=== PATIENT | female | born 1935 | race Caucasian/White ===

== ENCOUNTER 2016-07-02 03:37 | Emergency (ER) | payer MEDICARE, OTHER ==
[2016-07-02] MEDS ORDERED: FUROSEMIDE 40 MG/4 ML VIAL ONE (03:51)
[2016-07-02] MEDS: FUROSEMIDE 40 MG/4 ML VIAL IVP ONE (03:55)
--- NOTE | 2016-07-02 04:04 | ED Physician Documentation ---
General Adult - HISTORIAN Historian: patient - HPI Stated Complaint: SOB Chief Complaint: General Adult Additional Information: Awakened at 0130 by SOB. This has happened before, but alwas lasts a few minutes and she goes back to sleep. 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 Denies pain, fever, sweats. Timing: better - ROS CONST: no problems. denies: recent illness - PAST HX Past History: COPD, A-Fib, CHF, hypertension Surgeries/Procedures: cholecystectomy, hysterectomy Allergies/Adverse Reactions: Allergies Allergy/AdvReac Type Severity Reaction Status Date / Time No Known Allergies Allergy Verified 07/02/16 04:01 Home Medications: Ambulatory Orders Medication Instructions Recorded Aspirin [Kate] 81 mg PO DAILY 08/27/14 Digoxin [Lanoxin] 12.5 mg PO DAILY 08/27/14 Diltiazem HCl [Tiazac] 240 mg PO DAILY 08/27/14 Furosemide 40 mg PO DAILY 08/27/14 Quinapril HCl 20 mg PO DAILY 08/27/14 Apixaban [Eliquis] 10 mg PO D 07/02/16 Calcium Citrate/Vitamin D3 1 tab PO D 07/02/16 [Calcium Citrate +Vit D3 Tablet] Loratadine [Claritin] 10 mg PO D 07/02/16 - SOCIAL HX Smoking History: quit greater than 1 year (< 1 PPD for 40 years), cigarettes - FAMILY HX Family History: No (no signif) - VITAL SIGNS Vital Signs: Vital Signs Temp Pulse Resp BP Pulse Ox 110/62 01/17/16 09:12 - REVIEWED ASSESSMENTS Nursing Assessment Reviewed: Yes Vitals Reviewed: Yes Progress - Progress Progress: EKG: a fib, 80 BPM, no acute changes TECHNIQUE: Single portable AP view of the chest was performed. FINDINGS: The lungs are hyperexpanded. There is central pulmonary vascular prominence. No pneumothorax or consolidative infiltrates. The aortic arch is calcific. The heart is enlarged. Probable calcified lymph nodes in the left hilum. IMPRESSION: 1. Central pulmonary vascular prominence may be due to mild CHF or pulmonary arterial hypertension. 2. Cardiomegaly. 3. Pulmonary hyperexpansion without consolidative infiltrates. Electronically signed on Jul 02, 2016 4:15:29 AM CDT by: Asaf Rea Urine ouput 1050 ml. Breathing much easier. ED Results Lab/Radiology - Orders Orders: ED Orders Category Date Time Status Assess pulse oximetry Q1H Care 07/02/16 03:41 Active Continuous EKG monitoring Q1H Care 07/02/16 03:[address] Saline Lock/IV Now Care 07/02/16 03:41 Active CHEST 1 VIEW [RAD] Stat Exams 07/02/16 Ordered CBC/PLATELET/DIFF Routine Lab 07/02/16 03:45 Received CMP Routine Lab 07/02/16 03:45 Received TROPONIN I (cTnI) Stat Lab 07/02/16 03:45 Received URINALYSIS Routine Lab 07/02/16 Ordered Furosemide [Lasix] Med 07/02/16 03:51 Discontinued 40 mg .ROUTE .STK-MED ONE Furosemide [Lasix] Med 07/02/16 03:50 Discontinued 40 mg IVP NOW ONE EKG WITH COMPARISON Stat Ther 07/02/16 Ordered General Adult Physical Exam - PHYSICAL EXAM GENERAL APPEARANCE: no distress EENT: eye inspection normal, ENT inspection normal, pharynx normal NECK: normal inspection, supple RESPIRATORY: breath sounds normal, rales (fine rales jamila lower lobes), other ( tachypnea in 20's) CVS: heart sounds normal, irregularly irregular rhy ABDOMEN: normal bowel sounds RECTAL: deferred BACK: normal inspection, no CVA tenderness, other (no vertebral tenderness) SKIN: warm/dry, normal color EXTREMITIES: no edema NEURO: CN's nml as tested, motor nml, sensation nml, cognition normal Discharge Clincal Impression: Shortness of breath Referrals: Regis Retana MD [Primary Care Provider] - 2 Days Additional Instructions: Take your medications as prescribed. Home Medications: Ambulatory Orders Aspirin [Kate] 81 mg PO DAILY 08/27/14 Digoxin [Lanoxin] 12.5 mg PO DAILY 08/27/14 Diltiazem HCl [Tiazac] 240 mg PO DAILY 08/27/14 Furosemide 40 mg PO DAILY 08/27/14 Quinapril HCl 20 mg PO DAILY 08/27/14 Apixaban [Eliquis] 10 mg PO D 07/02/16 Calcium Citrate/Vitamin D3 [Calcium Citrate +Vit D3 Tablet] 1 tab PO D 07/02/16 Loratadine [Claritin] 10 mg PO D 07/02/16 Condition: Good Disposition: 01 HOME, SELF-CARE Decision to Admit: NO Decision Time: 05:20
[2016-07-02 04:05] LABS: BASOPHILS % 0.7 (0.0-1.5); EOSINOPHILS % 4.9 % (0.0-6.8); LYMPHOCYTES # 1.8 # k/uL (0.6-4.0); MEAN CORPUSCULAR HEMOGLOBIN 29.2 pg (28.0-34.0); MONOCYTES # 0.4 # k/uL (0.0-0.9); NEUTROPHILS # 5.2 # k/uL (1.4-7.7)
--- NOTE | 2016-07-02 04:16 | Diagnostic Imaging Report ---
MILLY ARGUELLES - SANDRA [facility] [address] [facility] [address] [place] [address]. [id number] Report Submission Date: Jul 02, 2016 4:15:29 AM CDT Patient Study Name: MIRANDA HENDRICKSON Date: Jul 02, 2016 3:56:51 AM CDT Modality Type: CR Gender: F Description: CHEST : 36 Institution: [facility] Physician: MILLY ARGUELLES - SANDRA HISTORY: 80-year-old female with shortness of breath. COMPARISON: None available TECHNIQUE: Single portable AP view of the chest was performed. FINDINGS: The lungs are hyperexpanded. There is central pulmonary vascular prominence. No pneumothorax or consolidative infiltrates. The aortic arch is calcific. The heart is enlarged. Probable calcified lymph nodes in the left hilum. IMPRESSION: 1. Central pulmonary vascular prominence may be due to mild CHF or pulmonary arterial hypertension. 2. Cardiomegaly. 3. Pulmonary hyperexpansion without consolidative infiltrates. Electronically signed on Jul 02, 2016 4:15:29 AM CDT by: Asaf MCKENNA
[2016-07-02 04:21] LABS: eGFR (African) > 60; eGFR (Non-African) > 60
[2016-07-02 05:29] LABS: APPEARANCE,URINE CLEAR (CLEAR); COLOR,URINE YELLOW (YELLOW); OCCULT BLOOD,URINE NEGATIVE (NEGATIVE); UROBILINOGEN URINE 0.2 Eu (0.2-1.0)
[2016-07-02 06:38] VITALS: BP 128/97
== END 2016-07-02 05:28 ==
LOC: ED 03:37
DX: R06.02 Shortness of breath (principal)
CPT/HCPCS: 71010; 80053; 81002; 84484; 85025; 93005; J1940; 96374; 99283; 99284; S1016

== ENCOUNTER 2016-07-19 08:00 | Emergency (ER) | payer MEDICARE, OTHER ==
[2016-07-19 08:27] LABS: BASOPHILS % 0.3 (0.0-1.5); EOSINOPHILS % 3.7 % (0.0-6.8); MEAN CORPUSCULAR HEMOGLOBIN 28.3 pg (28.0-34.0); MEAN CORPUSCULAR VOLUME 89.5 fl (80.0-100.0); MONOCYTES % 5.1 % (0.0-11.0); NEUTROPHILS # 4.7 # k/uL (1.4-7.7)
[2016-07-19 08:40] LABS: eGFR (African) > 60; eGFR (Non-African) > 60
--- NOTE | 2016-07-19 08:57 | ED Physician Documentation ---
Dyspnea - HISTORIAN Historian: patient - HPI Stated Complaint: Shortness of Breath Chief Complaint: Dyspnea Onset: other (yesterday) Duration: continues in ED Initiating Event: upper respiratory illness Severity: moderate Exacerbated By: exertion, laying flat Associated Symptoms: productive cough. denies: chills, fever Further Comments: yes (80 year old female patient presents with complaints of dyspnea. Patient states the dyspnea is worse with laying flat and exerction. Patient denies any CP, denies SOB or chest pain. States she has had mild edema in her ankles. Patient reports chronic A Fib) - ROS CONST: no problems EYES/ENT: nasal drainage, nasal congestion GI/: none NEURO/PSYCH: denies: headache MS/SKIN/LYMPH: none - PAST HX Lung Disease: COPD Cardiac Disease: A-Fib, other (HLD) PE Risk Factors: hypertension Other History: diabetes Type 2 Allergies/Adverse Reactions: Allergies Allergy/AdvReac Type Severity Reaction Status Date / Time No Known Allergies Allergy Verified 07/19/16 08:59 Home Medications: Ambulatory Orders Medication Instructions Recorded Aspirin [Kate] 81 mg PO DAILY 08/27/14 Digoxin [Lanoxin] 12.5 mg PO DAILY 08/27/14 Diltiazem HCl [Tiazac] 240 mg PO DAILY 08/27/14 Furosemide 40 mg PO DAILY 08/27/14 Quinapril HCl 20 mg PO DAILY 08/27/14 Apixaban [Eliquis] 10 mg PO D 07/02/16 Calcium Citrate/Vitamin D3 1 tab PO D 07/02/16 [Calcium Citrate +Vit D3 Tablet] Loratadine [Claritin] 10 mg PO D 07/02/16 - SOCIAL HX Smoking History: non-smoker - FAMILY HX Family History: cardiac disease - VITAL SIGNS Vital Signs: Vital Signs Temp Pulse Resp BP Pulse Ox 98.2 F 88 22 149/113 98 07/19/16 08:00 07/19/16 08:48 07/19/16 08:00 07/19/16 08:00 07/19/16 08:48 - REVIEWED ASSESSMENTS Nursing Assessment Reviewed: Yes Vitals Reviewed: Yes Progress - Progress Progress: RA Sat 86% on arrival, patient place on 2L NC. Oxygen at 4L to maintain sat 97-98%. Reviewed radiology chest xray report. Discussed plan of care with patient. Will likely need CT chest, will not diuresis at this time due to possible pulmonary hypertension. Patient stable at current status. Patient requests transfer to Dr Ortega. Call to [facility]. [phone] Falcon hospitalist. - EKG/XRAY/CT EKG: rhythm (A fib, rate88) ED Results Lab/Radiology - Lab Results Lab Results: Lab Results 07/19/16 08:25 WBC 6.90 K/ul K/ul (4.00-12.00) RBC 4.70 M/ul M/ul (3.90-5.20) Hgb 13.3 g/dL g/dL (12.0-16.0) Hct 42.0 % % (34.5-46.5) MCV 89.5 fl fl (80.0-100.0) MCH 28.3 pg pg (28.0-34.0) MCHC 31.6 g/dL g/dL (30.0-36.0) RDW 13.6 % % (11.3-14.3) Plt Count 208 K/mm3 K/mm3 (130-400) Neut % (Auto) 68.0 % % (39.0-79.0) Lymph % (Auto) 21.5 % % (16.0-50.0) [place] % (Auto) 5.1 % % (0.0-11.0) Eos % (Auto) 3.7 % % (0.0-6.8) Baso % (Auto) 0.3 (0.0-1.5) Neut # 4.7 # k/uL # k/uL (1.4-7.7) Lymph # 1.5 # k/uL # k/uL (0.6-4.0) [place] # 0.4 # k/uL # k/uL (0.0-0.9) Eos # 0.3 # k/uL # k/uL (0.0-0.6) Baso # 0.0 # k/uL # k/uL (0.0-0.5) Reactive Lymphs % 1.3 % % (0.0-5.0) Reactive Lymphs # 0.1 # k/uL # k/uL (0.0-0.8) - Radiology Radiology Impressions: A single frontal view of the chest History: Dyspnea Findings: Comparison: July 02, 2016 Cardiomegaly with aortic calcification are present Emphysema Pulmonary vascular congestion is again noted. Pulmonary hilar prominence is present Possible left calcified hilar lymphadenopathy. Left pleural thickening may be present There is bilateral mid lung atelectasis, no acute osseous pathology Impression: Cardiomegaly with pulmonary vascular congestion Emphysema Possible pulmonary arterial hypertension Bilateral mid lung subsegmental atelectasis Electronically signed on Jul 19, 2016 8:49:28 AM CDT by: Ida Go - Orders Orders: ED Orders Category Date Time Status Arterial Blood Gas 1T Care 07/19/16 08:05 Active Continuous EKG monitoring Q30M Care 07/19/16 08:18 Active Continuous Pulse Oximetry Q30M Care 07/19/16 08:[address] Saline Lock/IV NOW Care 07/19/16 08:18 Completed CHEST 1 VIEW [RAD] Stat Exams 07/19/16 08:18 Ordered BNP [NT-proBNP] Stat Lab 07/19/16 08:25 Received CBC/PLATELET/DIFF Stat Lab 07/19/16 08:25 Completed CMP Stat Lab 07/19/16 08:25 Received TROPONIN I (cTnI) Stat Lab 07/19/16 08:25 Received Oxygen Daily Oxygen 07/19/16 08:30 Ordered EKG WITH COMPARISON Stat Ther 07/19/16 08:18 Ordered Dyspnea Physical Exam - EXAM General Appearance: mild distress EENT: eye inspection normal, ENT inspection normal, pharynx normal, no signs of dehydration, JOSE, no nystagmus, TM's nml Respiratory: no resp. distress, no pain on inspiration, speaks full sentences, decreased air movement (bases) CVS: no murmur, no gallop, no friction rub, pulses full, pulses equal, irregularly irreg. 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: oriented x3, CN's nml as tested, motor nml, sensation nml, mood/ affect nml Discharge Clincal Impression: COPD (chronic obstructive pulmonary disease), Paroxysmal atrial fibrillation, Hypoxemia requiring supplemental oxygen, Shortness of breath Home Medications: Ambulatory Orders Aspirin [Kate] 81 mg PO DAILY 08/27/14 Digoxin [Lanoxin] 12.5 mg PO DAILY 08/27/14 Diltiazem HCl [Tiazac] 240 mg PO DAILY 08/27/14 Furosemide 40 mg PO DAILY 08/27/14 Quinapril HCl 20 mg PO DAILY 08/27/14 Apixaban [Eliquis] 10 mg PO D 07/02/16 Calcium Citrate/Vitamin D3 [Calcium Citrate +Vit D3 Tablet] 1 tab PO D 07/02/16 Loratadine [Claritin] 10 mg PO D 07/02/16 Condition: Stable Disposition: 02 XFER SHT-TRM HOSP Decision to Admit: NO Decision Time: 10:14
[2016-07-19 10:59] VITALS: BP 165/98
--- NOTE | 2016-07-19 11:07 | Diagnostic Imaging Report ---
UMAIR REN (MARQUEZ) - ER [facility] [address] [facility].[address] [address] Report Submission Date: Jul 19, 2016 8:49:28 AM CDT Patient Study Name: MIRANDA HENDRICKSON Date: Jul 19, 2016 8:31:47 AM CDT Modality Type: CR Gender: F Description: CHEST : 36 Institution: [facility] Physician: UMAIR REN (MARQUEZ) - ER A single frontal view of the chest History: Dyspnea Findings: Comparison: July 02, 2016 Cardiomegaly with aortic calcification are present Emphysema Pulmonary vascular congestion is again noted. Pulmonary hilar prominence is present Possible left calcified hilar lymphadenopathy. Left pleural thickening may be present There is bilateral mid lung atelectasis, no acute osseous pathology Impression: Cardiomegaly with pulmonary vascular congestion Emphysema Possible pulmonary arterial hypertension Bilateral mid lung subsegmental atelectasis Electronically signed on Jul 19, 2016 8:49:28 AM CDT by: Ida MCKENNA
[2016-07-20 07:41] LABS: ABG BASE EXCESS 4.8 (-2 - +2); ABG PH 7.41 (7.35-7.45)
== END 2016-07-19 10:45 | disposition short-term general hospital (02) ==
LOC: ED 08:00
DX: J44.9 Chronic obstructive pulmonary disease, unspecified (principal); Z99.81 Dependence on supplemental oxygen
CPT/HCPCS: 36600; 71010; 80053; 82803; 83880; 84484; 85025; 99283; S1016

== ENCOUNTER 2016-10-18 15:20 | Inpatient (IN) | payer MEDICARE, OTHER ==
[2016-10-18] MEDS ORDERED: IPRATROPIUM/ALBUTEROL SULFATE 3 ML AMPUL.NEB NEB ONE (15:37)
[2016-10-18 15:52] LABS: BASOPHILS % 0.9 (0.0-1.5); EOSINOPHILS % 1.9 % (0.0-6.8); MEAN CORPUSCULAR HEMOGLOBIN 27.4 pg (28.0-34.0); MEAN CORPUSCULAR VOLUME 85.3 fl (80.0-100.0); MONOCYTES % 4.1 % (0.0-11.0); NEUTROPHILS # 9.3 # k/uL (1.4-7.7)
[2016-10-18 16:08] LABS: eGFR (African) > 60; eGFR (Non-African) > 60
--- NOTE | 2016-10-18 16:32 | ED Physician Documentation ---
Dyspnea - HISTORIAN Historian: patient - HPI Chief Complaint: Dyspnea Additional Information: poor historian. Difficulty breathing x 3 days. worse with activity. NO PAIN. supposed to use oxygen at home, thinks she uses it at night but not every night. Onset: days ago Duration: continues in ED Initiating Event: exercise. denies: upper respiratory illness, out of meds Severity: mild Exacerbated By: exertion, laying flat Associated Symptoms: none. denies: sweating, chest pain, productive cough Further Comments: no - ROS CONST: denies: recent illness EYES/ENT: none. denies: nasal drainage, nasal congestion GI/: none. denies: vomiting, nausea NEURO/PSYCH: denies: headache MS/SKIN/LYMPH: none - PAST HX Lung Disease: COPD, pneumonia Cardiac Disease: CHF, A-Fib PE Risk Factors: hypertension Surgeries/Procedures: none Other History: diabetes Type 1 Allergies/Adverse Reactions: Allergies Allergy/AdvReac Type Severity Reaction Status Date / Time No Known Allergies Allergy Verified 10/18/16 15:51 Home Medications: Ambulatory Orders Medication Instructions Recorded Aspirin [Kate] 81 mg PO DAILY 08/27/14 Digoxin [Lanoxin] 12.5 mg PO DAILY 08/27/14 Diltiazem HCl [Tiazac] 240 mg PO DAILY 08/27/14 Furosemide 40 mg PO DAILY 08/27/14 Quinapril HCl 20 mg PO DAILY 08/27/14 Apixaban [Eliquis] 10 mg PO BID 07/02/16 Calcium Citrate/Vitamin D3 1 tab PO D 07/02/16 [Calcium Citrate +Vit D3 Tablet] Loratadine [Claritin] 10 mg PO D 07/02/16 Potassium Chloride [Klor-Con M10] 10 meq PO BID 10/18/16 - SOCIAL HX Smoking History: quit greater than 1 year, cigarettes Alcohol Use: occasionally Drug Use: none - FAMILY HX Family History: none - VITAL SIGNS Vital Signs: Vital Signs Temp Pulse Resp BP Pulse Ox 165/98 07/19/16 10:45 - REVIEWED ASSESSMENTS Nursing Assessment Reviewed: Yes Vitals Reviewed: Yes Progress - Results/Orders Results/Orders: Spoke with Dr Retana, he agrees to admit her. ED Results Lab/Radiology - Orders Orders: ED Orders Category Date Time Status CHEST P.A.&LAT 2 VIEWS [RAD] Stat Exams 10/18/16 Ordered BNP [NT-proBNP] Stat Lab 10/18/16 Ordered CBC/PLATELET/DIFF Routine Lab 10/18/16 Ordered CMP Routine Lab 10/18/16 Ordered CREATINE KINASE Routine Lab 10/18/16 Ordered D DIMER Stat Lab 10/18/16 Ordered PT-INR Routine Lab 10/18/16 Ordered Ipratropium/Albuterol Sulfate [Duoneb] Med 10/18/16 15:37 Once 3 ml NEB NOW ONE EKG WITH COMPARISON Stat Ther 10/18/16 Ordered Dyspnea Physical Exam - EXAM General Appearance: alert, mild distress EENT: ENT inspection normal, no signs of dehydration Neck: nml inspection. No: lymphadenopathy Respiratory: no resp. distress, breath sounds nml, no pain on inspiration, speaks full sentences. No: respiratory distress, respiratory failure, prolonged expirations, wheezes, rales, rhonchi CVS: irregularly irreg. rhythm. No: tachycardia, murmur Abdomen: non-tender Skin: color nml, no rash. No: diaphoresis Extremities: non-tender, no edema Neuro/Psych: oriented x3 Discharge Clincal Impression: CHF (congestive heart failure) Qualifiers: Congestive heart failure type: unspecified congestive heart failure type Congestive heart failure chronicity: acute on chronic Qualified Code(s): I50.9 - Heart failure, unspecified Pneumonia Qualifiers: Pneumonia type: due to unspecified organism Laterality: right Lung location: lower lobe of lung Qualified Code(s): J18.1 - Lobar pneumonia, unspecified organism COPD (chronic obstructive pulmonary disease) Qualifiers: COPD type: COPD with acute exacerbation Qualified Code(s): J44.1 - Chronic obstructive pulmonary disease with (acute) exacerbation A-fib Qualifiers: Atrial fibrillation type: chronic Qualified Code(s): I48.2 - Chronic atrial fibrillation Referrals: Regis Retana MD [Primary Care Provider] - 2 Days Home Medications: Ambulatory Orders Aspirin [Kate] 81 mg PO DAILY 08/27/14 Digoxin [Lanoxin] 12.5 mg PO DAILY 08/27/14 Diltiazem HCl [Tiazac] 240 mg PO DAILY 08/27/14 Furosemide 40 mg PO DAILY 08/27/14 Quinapril HCl 20 mg PO DAILY 08/27/14 Apixaban [Eliquis] 10 mg PO BID 07/02/16 Calcium Citrate/Vitamin D3 [Calcium Citrate +Vit D3 Tablet] 1 tab PO D 07/02/16 Loratadine [Claritin] 10 mg PO D 07/02/16 Potassium Chloride [Klor-Con M10] 10 meq PO BID 10/18/16 Condition: Stable Disposition: ADMITTED INPATIENT Decision to Admit: [id number] Date of Decison to Admit: 10/18/16 Decision Time: 16:31
[2016-10-18] MEDS ORDERED: 0.9 % SODIUM CHLORIDE 100 ML IV ONE (16:49)
[2016-10-18] MEDS ORDERED: cefTRIAXone SODIUM 1 GM VIAL ONE (16:49)
[2016-10-18] MEDS ORDERED: ENOXAPARIN SODIUM 30 MG/0.3 ML DISP.SYRIN SQ SCH (18:00)
[2016-10-18] MEDS: cefTRIAXone SODIUM 1 GM in 0.9 % SODIUM CHLORIDE 50 ML IV SCH (18:17)
[2016-10-18 18:20] VITALS: BMI 25.5
[2016-10-18] MEDS ORDERED: POTASSIUM CHLORIDE 10 MEQ TABLET.ER PO ONE (18:35)
--- NOTE | 2016-10-18 19:21 | Diagnostic Imaging Report ---
MENDY ALARCON [facility] [address] [facility] [address] [address] Report Submission Date: Oct 18, 2016 4:03:45 PM CDT Patient Study Name: MIRANDA HENDRICKSON Date: Oct 18, 2016 3:41:04 PM CDT Modality Type: CR Gender: F Description: CHEST : 37 Institution: [facility] Physician: MENDY ALARCON Examination: Portable chest History: Chest discomfort Comparison exam: 19 July 2016 Findings: Single view of the chest demonstrates enlarged cardiac silhouette. Continued prominence of the parenchyma interstitium. Prominent right hilum. Vague infiltrate right lower lung. Parenchymal fullness at the left lung base: Stable to prior study. Osseous structures are appropriate for age. Impression: Cardiomegaly and chronic interstitial changes. New infiltrate right lower lung. No effusion. Continue prominence of the naveen - may represent pulmonary arterial hypertension. Electronically signed on Oct 18, 2016 4:03:45 PM CDT by: Eliel MCKENNA
[2016-10-18] MEDS: FUROSEMIDE 40 MG TABLET PO SCH (20:04)
[2016-10-18] MEDS: APIXABAN 2.5 MG TABLET PO SCH (20:05)
[2016-10-18] MEDS ORDERED: AZITHROMYCIN 500 MG VIAL IV ONE (20:09)
[2016-10-18] MEDS ORDERED: 0.9 % SODIUM CHLORIDE 250 ML IV ONE (20:10)
[2016-10-18] MEDS: AZITHROMYCIN 500 MG in 0.9 % SODIUM CHLORIDE 250 ML IV SCH (20:26)
[2016-10-18] MEDS ORDERED: POTASSIUM CHLORIDE 10 MEQ PO SCH (21:00)
[2016-10-18] MEDS: IPRATROPIUM/ALBUTEROL SULFATE 3 ML AMPUL.NEB NEB SCH (21:07)
--- NOTE | 2016-10-18 21:11 | History and Physical Report ---
History of Present Illnes - History of Present Illness Reason for Visit: Dyspnea History of Present Illness: Patient is a 80-year-old white female who over the last two days has developed some increasing shortness of breath and dyspnea. Patient was having some palpitations and some mild low-grade fever. Patient did develop a cough that was nonproductive. Patient subsequently went to the ED for evaluation and treatment. Patient does have a history of chronic a to a fib COPD. In the emergency room patient was noted to have a new left lower lobe infiltrate mildly elevated WBC. Patient was also noted to have a elevated Pro BNP. Patient was subsequently admitted to the hospital for further care and evaluation. 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 negative: Weakness, Malaise Eyes: negative: pain, vision change, conjunctivae inflammation ENT: negative: Ear Pain, Ear Discharge, Nose Pain, Nose Discharge, Nose Congestion, Throat Swelling Respiratory: Cough, Dry, Shortness of Breath, SOB with Excertion, Wheezing. negative: Hemoptysis, Pleuritic Pain, Sputum Cardiovascular: negative: Chest Pain, Palpitations, Orthopnea Gastrointestinal: negative: Nausea, Vomiting, Abdominal Pain, Diarrhea, Constipation, Melena, Hematochezia Genitourinary: negative: Dysuria, Frequency, Incontinence, Hematuria Musculoskeletal: Back Pain Skin: negative: Rash, Lesions Neurological: negative: Weakness, Numbness, Incoordination, Change in Speech, Confusion, Seizures - Medications/Allergies Allergies/Adverse Reactions: Allergies Allergy/AdvReac Type Severity Reaction Status Date / Time No Known Allergies Allergy Verified 10/18/16 15:51 Home Medications: Home Medications Potassium Chloride [Klor-Con M10] 10 meq PO BID 10/18/16 Current Inpatient Medications: Current Inpatient Medications Albuterol/Ipratropium (Duoneb) 3 ml NEB Q4 [facility] Calcium/Vitamin D (Caltrate With Vit D-3) 1 each PO DAILY [facility] Digoxin (Lanoxin) 12,500 mcg PO DAILY [facility] Diltiazem HCl (Cardizem Cd) 240 mg PO DAILY [facility] Furosemide (Lasix) 40 mg PO BID [facility] Last Admin: 10/18/16 20:04 Dose: 40 mg Azithromycin 500 mg/ Sodium (Chloride) 250 mls @ 125 mls/hr IV Q24H [facility] Stop: 10/28/16 17:36 Last Admin: 10/18/16 20:26 Dose: 125 mls/hr Ceftriaxone Sodium 1 gm/ (Sodium Chloride) 50 mls @ 100 mls/hr IV QD [facility] Last Admin: 10/18/16 18:17 Dose: 100 mls/hr Loratadine (Claritin) 10 mg PO D [facility] Metformin HCl (Glucophage) 500 mg PO BID [facility] Last Admin: 10/18/16 20:04 Dose: 500 mg Miscellaneous (Potassium Chloride [Klor-Con M10]) 10 meq PO BID [facility] Last Admin: 10/18/16 20:05 Dose: 10 meq Miscellaneous (Chem Sticks) 1 each MC CHEMX2 [facility] Quinapril HCl (Accupril) 20 mg PO DAILY [facility] Sodium Chloride (Normal Saline Flush) 3 ml IV BID [facility] Exam - Exam Vital Signs: Vital Signs (72 hours) 10/18/16 10/18/16 10/18/16 17:09 17:37 18:00 Temperature 97.3 F L Pulse Rate 120 H Pulse Rate [ 107 H Right] Respiratory 18 Rate Blood Pressure 128/65 [Right Arm] O2 Sat by Pulse 94 94 94 Oximetry 10/18/16 19:49 Temperature 97.1 F L Pulse Rate Pulse Rate [ 97 H Right] Respiratory 20 Rate Blood Pressure 105/58 [Right Arm] O2 Sat by Pulse 96 Oximetry General: Alert, Oriented to Person, Oriented to Place, Oriented to Time, Cooperative, No acute distress HEENT: Atraumatic, PERRLA. No: Pharyngeal Erythema Neck: Normal Range of Motion. No: Stridor, Rigidity, Lymphadenopathy Carotids: WNL Thyroid: WNL Lungs: Speaks full Sentences, Wheezes (L>R), Rales Cardiovascular: Normal S2, No murmurs, Irregularly Irregular Abdomen: Normal bowel sounds, Soft, No tenderness, No hepatospenomegaly, No masses Integumentary: Normal, [place], Warm, Dry Extremities: No clubbing, No cyanosis, No edema, Normal pulses, No tenderness/ swelling Neurological: Normal gait, Normal speech, Strength Equal Bilat, Sensation intact , Cranial nerves 3-12 NL, Reflexes 2+ Psych/Mental Status: Mental status NL, Mood NL, Appropriate Affect, Intact Judgment Assessment/Plan - Assessment/Plan (1) Pneumonia Status: Acute Current Visit: Yes Qualifiers: Pneumonia type: due to unspecified organism Laterality: right Lung location: lower lobe of lung Qualified Code(s): J18.1 - Lobar pneumonia, unspecified organism (2) A-fib Status: Chronic Current Visit: Yes Qualifiers: Atrial fibrillation type: chronic Qualified Code(s): I48.2 - Chronic atrial fibrillation Assessment: continue anticoagulation (3) Acute exacerbation of chronic obstructive airways disease Status: Acute Current Visit: No (4) Essential hypertension Status: Acute Current Visit: No Assessment: Duoneb, antibiotics, will hold off on steroids at this time. (5) Chronic anticoagulation Status: Chronic Current Visit: No VTE Assessment - RISK FACTOR SCORE VTE RISK FACTOR SCORES: AGE OVER 60 YEARS, ACUTE INFECTION OTHER THEN SEPSIS - RISK VTE MODERATE RISK: SCORE OF 2 (RISK PROXIMAL DVT 2-4%) PROPHYAXIS NEEDED (on chronic anticoagulation therapy.)
[2016-10-19] MEDS: SALINE FLUSH 10 ML DISP.SYRIN IV SCH ×3 (02:34→22:42)
[2016-10-19] MEDS: IPRATROPIUM/ALBUTEROL SULFATE 3 ML AMPUL.NEB NEB SCH ×6 (02:52→20:47)
[2016-10-19] MEDS ORDERED: POTASSIUM CHLORIDE 10 MEQ TABLET.ER PO ONE (03:13)
[2016-10-19 06:31] LABS: BASOPHILS % 0.6 (0.0-1.5); EOSINOPHILS % 1.2 % (0.0-6.8); MEAN CORPUSCULAR HEMOGLOBIN 27.8 pg (28.0-34.0); MEAN CORPUSCULAR VOLUME 84.8 fl (80.0-100.0); NEUTROPHILS # 7.4 # k/uL (1.4-7.7)
[2016-10-19 06:34] LABS: eGFR (African) > 60; eGFR (Non-African) > 60
[2016-10-19] MEDS: CALCIUM CARB 600MG/VIT D-3 400 1 EACH TABLET PO SCH (10:03)
[2016-10-19] MEDS: DILTIAZEM HCL 120 MG CAP.ER.24H PO SCH (10:03)
[2016-10-19] MEDS: POTASSIUM CHLORIDE 10 MEQ TABLET.ER PO SCH ×2 (10:03→20:16)
[2016-10-19] MEDS: QUINAPRIL HCL 20 MG TABLET PO SCH (10:03)
[2016-10-19] MEDS: DIGOXIN 125 MCG TABLET PO SCH (10:04)
[2016-10-19] MEDS: FUROSEMIDE 40 MG TABLET PO SCH (10:04)
[2016-10-19] MEDS: LORATADINE 10 MG TABLET PO SCH (10:04)
[2016-10-19] MEDS: APIXABAN 2.5 MG TABLET PO SCH ×2 (10:04→20:17)
[2016-10-19] MEDS: cefTRIAXone SODIUM 1 GM in 0.9 % SODIUM CHLORIDE 50 ML IV SCH (17:38)
[2016-10-19] MEDS ORDERED: methylPREDNISolone SOD SUCC 125 MG/2 ML VIAL IVP ONE (18:48)
--- NOTE | 2016-10-19 19:20 | Diagnostic Imaging Report ---
[facility]MED SURG [facility] [address] [facility] [address] [place] [address]. [address] Report Submission Date: Oct 19, 2016 4:20:33 PM CDT Patient Study Name: MIRANDA HENDRICKSON Date: Oct 19, 2016 3:14:50 PM CDT Modality Type: CT\SR Gender: F Description: CT ANGIOGRAPHY CHEST 7 : 36 Institution: [facility] Physician: [facility]/MED SURG Examination: CT chest pulmonary embolism History: Chest discomfort. Elevated d-dimer Comparison exam: Plain film chest dated 18 October 2016 Technique: CT chest pulmonic pulmonary embolism protocol. Findings: No evidence for luminal filling defect within the main pulmonary arteries to the 3rd order branch vessels bilaterally. Thoracic aorta without aneurysmal dilation. No evidence for dissection flap. Mild peripheral atherosclerotic disease. Lungs demonstrate dependent atelectasis bilaterally. Biapical and posterior parenchymal scarring. Regions of more focal consolidation involving the left lung lingula and superior/anterior/lateral margin of the right midlung. No evidence for posterior pleural effusion or thickening. No mediastinal or naveen mass or pathologic adenopathy. Cardiac silhouette enlarged. No pericardial fluid. Osseous structures demonstrate mild degenerative changes. Lower neck structures and axilla regions are without gross irregularity. Air within the hepatobiliary tree. Surgical clips gallbladder fossa. Impression: No evidence for pulmonary embolism by CT criteria. No evidence for thoracic aortic dissection or abnormality. Bilateral patchy parenchymal infiltrates/inflammatory nodules. Follow as clinically warranted. Air within the hepatic biliary tree: uncertain etiology. Correlate with any pertinent history and prior surgical procedures. Prior cholecystectomy Electronically signed on Oct 19, 2016 4:20:33 PM CDT by: Eliel Arnold [facility]ERRos[facility]
[2016-10-19] MEDS: AZITHROMYCIN 500 MG in 0.9 % SODIUM CHLORIDE 250 ML IV SCH (20:34)
[2016-10-19] MEDS: INSULIN REGULAR, HUMAN 100 UNIT/ML 3ML VIAL SQ SCH (20:43)
[2016-10-20] MEDS: IPRATROPIUM/ALBUTEROL SULFATE 3 ML AMPUL.NEB NEB SCH ×4 (04:30→12:38)
[2016-10-20] MEDS: INSULIN REGULAR, HUMAN 100 UNIT/ML 3ML VIAL SQ SCH ×2 (07:43→11:36)
[2016-10-20] MEDS: methylPREDNISolone SOD SUCC 40 MG/ML VIAL IVP SCH ×2 (08:05→08:06)
[2016-10-20] MEDS: QUINAPRIL HCL 20 MG TABLET PO SCH (08:29)
[2016-10-20] MEDS: DILTIAZEM HCL 120 MG CAP.ER.24H PO SCH (08:29)
[2016-10-20] MEDS: APIXABAN 2.5 MG TABLET PO SCH (08:29)
[2016-10-20] MEDS: LORATADINE 10 MG TABLET PO SCH (08:29)
[2016-10-20] MEDS: CALCIUM CARB 600MG/VIT D-3 400 1 EACH TABLET PO SCH (08:29)
[2016-10-20] MEDS: DIGOXIN 125 MCG TABLET PO SCH (08:30)
[2016-10-20] MEDS: POTASSIUM CHLORIDE 10 MEQ TABLET.ER PO SCH (08:30)
[2016-10-20] MEDS: SALINE FLUSH 10 ML DISP.SYRIN IV SCH (08:30)
--- NOTE | 2016-10-20 09:01 | Inpatient Progress Note ---
Subjective - Required Recertification Statement I anticipate X number of days because-include discharge plan: 2 days - Review of Systems Events since last encounter: patient seems to be doiung better. still has a nonproductive cough at this time. Is still getting SOB with exertion. Has had a low grade fever. Remains in atrial fibrillation with pulse running between 70-120s. no chest pain or pressure noted. Blood sugars have been stable. General: Denies: Chills, Night Sweats Pulmonary: Dyspnea, Cough. Denies: Pleuritic Chest Pain Cardiovascular: Palpitations. Denies: Chest Pain Gastrointestinal: Denies: Nausea, Vomiting, Abdominal Pain, Diarrhea, Constipation Objective - Exam Vitals and I&O: Vital Signs Temp 96.8 F L 10/20/16 08:34 Pulse 103 H 10/20/16 08:34 Resp 18 10/20/16 08:34 BP 104/66 10/20/16 08:34 Pulse Ox 98 10/20/16 08:34 Intake & Output 10/19/16 10/19/16 10/20/16 11:59 23:59 11:59 Intake Total 1320 480 240 Balance 1320 480 240 Weight 149 kg 150 kg Intake: IV 600 Right Antecubital 600 Oral 720 480 240 Other: Voiding Method Toilet Toilet # Voids 10 # Bowel Movements 0 General: Alert, Oriented to Person, Oriented to Place, Oriented to Time, Cooperative, No acute distress Neck: Supple, No JVD Lungs: Normal air movement, Rales (bialteral, L>R). No: Wheezes, Rhonchi Cardiovascular: Normal S1, Normal S2, No murmurs, Irregularly Irregular Abdomen: Normal bowel sounds, Soft, No tenderness - Results Results: Laboratory Results WBC 10.70 K/ul (4.00-12.00) 10/19/16 06:05 RBC 4.30 M/ul (3.90-5.20) 10/19/16 06:05 Hgb 12.0 g/dL (12.0-16.0) 10/19/16 06:05 Hct 36.5 % (34.5-46.5) 10/19/16 06:05 MCV 84.8 fl (80.0-100.0) 10/19/16 06:05 MCH 27.8 pg (28.0-34.0) L 10/19/16 06:05 MCHC 32.8 g/dL (30.0-36.0) 10/19/16 06:05 RDW 14.2 % (11.3-14.3) 10/19/16 06:05 Plt Count 298 K/mm3 (130-400) 10/19/16 06:05 Neut % (Auto) 69.4 % (39.0-79.0) 10/19/16 06:05 Lymph % (Auto) 21.3 % (16.0-50.0) 10/19/16 06:05 Thayer % (Auto) 5.0 % (0.0-11.0) 10/19/16 06:05 Eos % (Auto) 1.2 % (0.0-6.8) 10/19/16 06:05 Baso % (Auto) 0.6 (0.0-1.5) 10/19/16 06:05 Neut # (Auto) 7.4 # k/uL (1.4-7.7) 10/19/16 06:05 Lymph # (Auto) 2.3 # k/uL (0.6-4.0) 10/19/16 06:05 Thayer # (Auto) 0.5 # k/uL (0.0-0.9) 10/19/16 06:05 Eos # (Auto) 0.1 # k/uL (0.0-0.6) 10/19/16 06:05 Baso # (Auto) 0.1 # k/uL (0.0-0.5) 10/19/16 06:05 Reactive Lymphs % 2.5 % (0.0-5.0) 10/19/16 06:05 Reactive Lymphs # 0.3 # k/uL (0.0-0.8) 10/19/16 06:05 PT 9.9 Seconds (9.4-11.6) 10/18/16 15:40 INR 0.94 (0.9-1.2) 10/18/16 15:40 D-Dimer 1176 ng/mL (6.0-682) H 10/18/16 15:40 Sodium 138 mmol/L (136-145) 10/19/16 06:05 Potassium 3.8 mmol/L (3.5-5.1) 10/19/16 06:05 Chloride 97 mmol/L (98-107) L 10/19/16 06:05 Carbon Dioxide 34 mmol/L (20-32) H 10/19/16 06:05 Total Carbon Dioxide 26 mmol/L (22-29) 10/19/16 06:05 BUN 13 mg/dL (10-26) 10/19/16 06:05 Creatinine 0.8 mg/dL (0.4-1.5) 10/19/16 06:05 Estimated Creat Clear 157 10/19/16 06:05 Est GFR ( Amer) > 60 (60-) 10/19/16 06:05 Est GFR (Non-Af Amer) > 60 (60-) 10/19/16 06:05 Glucose 108 mg/dL (70-99) H 10/19/16 06:05 Calcium 9.3 mg/dL (8.5-10.5) 10/19/16 06:05 Total Bilirubin 0.3 mg/dL (0.2-1.2) 10/19/16 06:05 AST 12 U/L (0-41) 10/19/16 06:05 ALT 11 U/L (0-45) 10/19/16 06:05 Alkaline Phosphatase 85 U/L (46-116) 10/19/16 06:05 Creatine Kinase 17 U/L (0-225) 10/18/16 15:40 NT-Pro-B Natriuret Pep 3326.8 pg/mL (15.0-450.0) H 10/18/16 15:40 Total Protein 6.2 g/dL (6.0-8.5) 10/19/16 06:05 Albumin 3.7 g/dL (3.0-5.5) 10/19/16 06:05 Assessment/Plan - Assessment/Plan (1) Pneumonia Status: Acute Current Visit: Yes Qualifiers: Pneumonia type: due to unspecified organism Laterality: right Lung location: lower lobe of lung Qualified Code(s): J18.1 - Lobar pneumonia, unspecified organism Assessment: sound improved (2) A-fib Status: Chronic Current Visit: Yes Qualifiers: Atrial fibrillation type: chronic Qualified Code(s): I48.2 - Chronic atrial fibrillation Assessment: Tachy at times but stable (3) Acute exacerbation of chronic obstructive airways disease Status: Acute Current Visit: No Assessment: stable (4) Essential hypertension Status: Acute Current Visit: No Assessment: stable on home meds
--- NOTE | 2016-10-20 13:11 | Discharge Summary ---
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 Patient was having some palpitations and some mild low-grade fever. Patient did develop a cough that was nonproductive. Patient subsequently went to the ED for evaluation and treatment. Patient does have a history of chronic a to a fib COPD. In the emergency room patient was noted to have a new left lower lobe infiltrate mildly elevated WBC. Patient was also noted to have a elevated Pro BNP. Patient was subsequently admitted to the hospital for further care and evaluation. Condition at Discharge: Stable Home Medications: Ambulatory Orders Medication Instructions Recorded Aspirin [Kate] 81 mg PO DAILY 08/27/14 Digoxin [Lanoxin] 12.5 mg PO DAILY 08/27/14 Diltiazem HCl [Tiazac] 240 mg PO DAILY 08/27/14 Furosemide 40 mg PO DAILY 08/27/14 Quinapril HCl 20 mg PO DAILY 08/27/14 Apixaban [Eliquis] 10 mg PO BID 07/02/16 Calcium Citrate/Vitamin D3 1 tab PO D 07/02/16 [Calcium Citrate +Vit D3 Tablet] Loratadine [Claritin] 10 mg PO D 07/02/16 Potassium Chloride [Klor-Con M10] 10 meq PO BID 10/18/16 Azithromycin [Zithromax] 250 mg PO DAILY #2 tablet 10/20/16 Cefuroxime Axetil [Ceftin] 500 mg PO BID #14 tablet 10/20/16 Ipratropium/Albuterol Sulfate 3 ml NEB Q4 PRN #60 vial 10/20/16 [Duoneb] predniSONE [Deltasone] 10 mg PO BID #10 tablet 10/20/16 Consultations this Visit: None Procedures this Visit: None Allergies/Adverse Reactions: Allergies Allergy/AdvReac Type Severity Reaction Status Date / Time No Known Allergies Allergy Verified 10/18/16 15:51 Discharge Summary: 80-year-old white female with increasing shortness of breath. Patient presented to the emergency room. Patient notes be dyspneic. Patient did have an elevated he dimer 1176. CT scan of the chest with done and did show patchy infiltrated bilaterally. Patient was subsequently admitted to the hospital. Patient was started on high flow nebulization treatment. Patient was started on antibiotic therapy of Levaquin and azithromycin. Patient WBC count on admission was 12,200 and that the drop-down within thousand 100 of the time of discharge. Patient did remain afebrile during the hospitalization. Patient breathing status did improve with breathing treatments and anabolic therapy. Patient subsequently discharged home in stable condition. Patient diabetes mellitus was stable on home medications. Patient hypertension was stable on home medications. Atrial fibrillation stable within normal rate. - Final Diagnosis (1) Pneumonia Problems: Improved with antibiotics, specimen unknown (2) A-fib Problems: stable on home meds, remains on anticoagulation therapy (3) Acute exacerbation of chronic obstructive airways disease Problems: Mild exacerbation with pneumonia, tapering steroids (4) Essential hypertension Problems: stable on home meds
[2016-10-20 15:45] VITALS: BP 104/62
== END 2016-10-20 15:45 | disposition home or self-care (01) | DRG 195 ==
LOC: ED 15:20 → SOUTH 16:57
PROVIDERS: ADMIT Family Medicine; ATTEND Family Medicine
DX: J18.9 Pneumonia, unspecified organism (principal); J44.9 Chronic obstructive pulmonary disease, unspecified; I48.91 Unspecified atrial fibrillation; I10 Essential (primary) hypertension
CPT/HCPCS: 36415; 71020; 71275; 80053; 82550; 83880; 85025; 85379; 85610; 87040; 93005; J0456; J0696; J1030; J1815; J2930; J7050; 80051; 99223; 99232; 99238; 99284; J2920; Q9967; S1016

== ENCOUNTER 2016-12-14 13:50 | Outpatient (CLI) | payer MEDICARE, OTHER ==
--- NOTE | 2016-12-14 19:15 | Diagnostic Imaging Report ---
JEFF KELLY [facility] [address] [facility].[address] [address] Report Submission Date: Dec 14, 2016 2:51:10 PM CDT Patient Study Name: MIRANDA HENDRICKSON Date: Dec 14, 2016 1:56:34 PM CDT Modality Type: CR Gender: F Description: CHEST : 37 Institution: [facility] Physician: JEFF KELLY Examination: PA and lateral chest. History: Evaluate lung torres. Comparison exam: 18 October 2016 Findings: PA lateral chest demonstrates a prominent cardiac silhouette. Mild tortuosity of thoracic aorta with vascular calcification involving the aortic arch. No focal infiltrate. Previous right lower lung density has demonstrated near complete resolution. No blunting of the costophrenic margins. Osseous structures are appropriate for age. Impression: No new/acute pulmonary process. Stable cardiac enlargement. Electronically signed on Dec 14, 2016 2:51:10 PM CDT by: Eliel MCKENNA
== END 2016-12-14 13:52 ==
LOC: RAD 13:50
PROVIDERS: ATTEND Family Medicine
DX: R06.02 Shortness of breath (principal)
CPT/HCPCS: 71020

== ENCOUNTER 2016-12-28 14:50 | Outpatient (CLI) | payer MEDICARE, OTHER ==
[2016-12-28 15:29] LABS: eGFR (African) > 60; eGFR (Non-African) > 60
== END 2016-12-28 14:52 ==
LOC: LAB 14:50
PROVIDERS: ATTEND Family Medicine
DX: E11.9 Type 2 diabetes mellitus without complications (principal)
CPT/HCPCS: 36415; 80048

== ENCOUNTER 2017-01-05 09:29 | Emergency (ER) | payer MEDICARE, OTHER ==
[2017-01-05 09:41] VITALS: BP 118/75
--- NOTE | 2017-01-05 10:30 | ED Physician Documentation ---
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: days ago (1) Where: home Severity: moderate Context: direct blow, barefoot Associated Symptoms:: swelling Modifying Factors:: pain on movement Further Comments: no - ROS CONST: no problems CVS/RESP: none NEURO: denies: headache, head injury, dizziness GI/: denies: problems urinating, nausea, vomiting MS/SKIN/LYMPH: other (pain right 5th toe as described above) - PAST HX Past History: cardiac, A-Fib, diabetes Type 2, other (copd, htn, chf) Allergies/Adverse Reactions: Allergies Allergy/AdvReac Type Severity Reaction Status Date / Time No Known Allergies Allergy Verified 01/05/17 09:41 Home Medications: Ambulatory Orders Medication Instructions Recorded Aspirin [Kate] 81 mg PO DAILY 08/27/14 Digoxin [Lanoxin] 12.5 mg PO DAILY 08/27/14 Diltiazem HCl [Tiazac] 240 mg PO DAILY 08/27/14 Furosemide 40 mg PO DAILY 08/27/14 Quinapril HCl 20 mg PO DAILY 08/27/14 Apixaban [Eliquis] 10 mg PO BID 07/02/16 Calcium Citrate/Vitamin D3 1 tab PO D 07/02/16 [Calcium Citrate +Vit D3 Tablet] Loratadine [Claritin] 10 mg PO D 07/02/16 Potassium Chloride [Klor-Con M10] 10 meq PO BID 10/18/16 Ipratropium/Albuterol Sulfate 3 ml NEB Q4 PRN #60 vial 10/20/16 [Duoneb] - SOCIAL HX Smoking History: quit greater than 1 year Alcohol Use: none Drug Use: none - FAMILY HX Family History: no significant history - VITAL SIGNS Vital Signs: Vital Signs Temp Pulse Resp BP Pulse Ox 98.1 F 78 18 118/75 96 01/05/17 09:37 01/05/17 09:37 01/05/17 09:37 01/05/17 09:37 01/05/17 09:37 - REVIEWED ASSESSMENTS Nursing Assessment Reviewed: Yes Vitals Reviewed: Yes Progress - Results/Orders Results/Orders: x-ray right foot ordered - Progress Progress: ptJered miranda taped n ER, 5th to 4th toe right foot Critical Care Note - Critical Care Note Total Time (mins): 0 ED Results Lab/Radiology - Lab Results Lab Results: none ordered - Radiology Radiology Impressions: x-ray right foot shows nondisplaced fx proximal phalynx right 5th toe - Orders Orders: ED Orders Category Date Time Status FOOT 3 VIEWS OR MORE [RAD] Stat Exams 01/05/17 Ordered Foot Injury Physical Exam - Physical Exam General Appearance: mild distress Foot: right foot: bone tenderness (5th proximal phalynx), ecchymosis (base 5th toe and lateral foot), swelling (right 5th toe) Ankle: right: non-tender, normal inspection, normal range of motion, no evidence of injury Gait: other (very slightly affected by pain) Neuro: sensation nml, other (strength decreased 5th toe right foot) Vascular: no vascular compromise Tendons: tendon function nml Leg/Knee/Thigh: uninjured above ankle Skin: intact, other (ecchymosis) Head/ENT: nml inspection Neck/Back: nml inspection Resp/CVS: chest non-tender, breath sounds nml, heart sounds nml, no resp. distress, lungs clear, reg. rate & rhythm Abdomen: non-tender, pelvis stable Discharge Clincal Impression: Closed fracture of phalanx of right fifth toe Qualifiers: Encounter type: initial encounter Qualified Code(s): S92.501A - Displaced unspecified fracture of right lesser toe(s), initial encounter for closed fracture Referrals: Regis Retana MD [Primary Care Provider] - 2 Days Comments: Pt. discharged with ruth taping of 4th to 5th toe, over the counter tylenol or ibuprofen as needed for pain, ice and shoe protection instructions Condition: Stable Disposition: 01 HOME, SELF-CARE Decision to Admit: NO Decision Time: 10:30
--- NOTE | 2017-01-05 15:07 | Diagnostic Imaging Report ---
SALVATORE WOODALL [facility] [address] [facility].[address] [address] Report Submission Date: Jan 05, 2017 10:14:28 AM CDT Patient Study Name: MIRANDA HENDRICKSON Date: Jan 05, 2017 9:42:15 AM CDT Modality Type: CR Gender: F Description: LOWER EXTREMITY : 37 Institution: [facility] Physician: SALVATORE WOODALL Examination: Plain film foot History: 5th digit discomfort. Findings: 3 views of the foot demonstrates articular degenerative changes. Fracture proximal phalanx 5th digit: identified on oblique image. Mild hallux valgus deformity 1st digit. No soft tissue swelling. No joint effusion. Impression: Degenerative changes and 1st digit hot valgus deformity. Fracture proximal phalanx 5th digit. Electronically signed on Jan 05, 2017 10:14:28 AM CDT by: Eliel MCKENNA
== END 2017-01-05 10:38 | disposition home or self-care (01) ==
LOC: ED 09:29
DX: S92.501A Displaced unspecified fracture of right lesser toe(s), initial encounter for closed fracture (principal); X58.XXXA Exposure to other specified factors, initial encounter; Y93.9 Activity, unspecified; Y99.9 Unspecified external cause status
CPT/HCPCS: 73630; 99283

== ENCOUNTER 2017-02-27 16:39 | Observation (INO) | payer MEDICARE, OTHER ==
--- NOTE | 2017-02-27 17:01 | ED Physician Documentation ---
Dyspnea - HISTORIAN Historian: patient - HPI Chief Complaint: Dyspnea Additional Information: Mild nonproductive cough. Onset: days ago (yesterday) Duration: continues in ED Initiating Event: upper respiratory illness Severity: moderate Exacerbated By: change in position, exertion Associated Symptoms: denies: chills, fever - ROS CONST: no problems - PAST HX Lung Disease: COPD, other (hyperlipidemia, hypertrophic cardiomyopathy, DM type 2) Cardiac Disease: A-Fib PE Risk Factors: hypertension Surgeries/Procedures: cholecystectomy, hysterectomy Allergies/Adverse Reactions: Allergies Allergy/AdvReac Type Severity Reaction Status Date / Time pravastatin Allergy Verified 03/19/17 16:39 Home Medications: Ambulatory Orders Medication Instructions Recorded Budesonide/Formoterol Fumarate 2 puff IH BID #1 hfa.aer.ad 02/28/17 [Symbicort 80-4.5 Mcg Inhaler] - SOCIAL HX Smoking History: quit greater than 1 year (20 years) Alcohol Use: none Drug Use: none - FAMILY HX Family History: no significant history - VITAL SIGNS Vital Signs: Vital Signs Temp Pulse Resp BP Pulse Ox 118/75 01/05/17 10:38 - REVIEWED ASSESSMENTS Nursing Assessment Reviewed: Yes Vitals Reviewed: Yes Progress - Progress Progress: 18:28 After two breathing treatments patient states that she is still SOB, SAo2 drops to 87% with exertion. No chest pain noted. ED Results Lab/Radiology - Radiology Radiology Impressions: 2 views of the chest History: PATIENT STATES SHORTNESS OF BREATH. FORMER SMOKER comparison: December 14, 2016 Again noted is cardiomegaly with aortic calcification. Prominence of the pulmonary hilum is stable. Mild pulmonary vascular congestion is present. Reticular interstitial opacities are seen in both lungs. Minimal right basilar opacity is present. Thoracic spine degenerative changes are again noted Impression: 1. Cardiomegaly and aortic calcification. 2. Right basilar atelectasis/patchy infiltrate. Mild pulmonary vascular congestion. I do not think there is any change from previous x-ray Dyspnea Physical Exam - EXAM General Appearance: no acute distress, mild distress Neck: nml inspection Respiratory: speaks full sentences, respiratory distress (mild-mod), prolonged expirations (mild), wheezes (mild expiratory), rales (few scattered). No: rhonchi CVS: irregularly irreg. rhythm Abdomen: non-tender, no organomegaly, no distention, no ascites Skin: color nml, no rash Extremities: non-tender, normal range of motion, no evidence of injury, no edema Neuro/Psych: oriented x3, mood/affect nml, disoriented Discharge Clincal Impression: COPD with acute exacerbation, CHF (congestive heart failure) Condition: Stable Disposition: 01 HOME, SELF-CARE Decision to Admit: [id number] Date of Decison to Admit: 02/27/17 Decision Time: 18:39
[2017-02-27] MEDS ORDERED: IPRATROPIUM/ALBUTEROL SULFATE 3 ML AMPUL.NEB NEB ONE ×3 (17:02→17:46)
[2017-02-27] MEDS ORDERED: methylPREDNISolone SOD SUCC 125 MG/2 ML VIAL IVP ONE (17:12)
[2017-02-27] MEDS ORDERED: 0.9 % SODIUM CHLORIDE 1,000 ML IV SCH ×2 (17:30→18:23)
[2017-02-27] MEDS ORDERED: 0.9 % SODIUM CHLORIDE 1,000 ML IV ONE (17:36)
[2017-02-27 17:43] LABS: BASOPHILS % 0.6 (0.0-1.5); EOSINOPHILS % 4.3 % (0.0-6.8); MEAN CORPUSCULAR HEMOGLOBIN 24.7 pg (28.0-34.0); MEAN CORPUSCULAR VOLUME 80.7 fl (80.0-100.0); MONOCYTES % 5.4 % (0.0-11.0); NEUTROPHILS # 5.9 # k/uL (1.4-7.7)
[2017-02-27 18:03] LABS: eGFR (African) > 60; eGFR (Non-African) > 60
--- NOTE | 2017-02-27 18:09 | Diagnostic Imaging Report ---
[facility] [address] [facility].[address] 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 FORMER SMOKER comparison: December 14, 2016 Again noted is cardiomegaly with aortic calcification. Prominence of the pulmonary hilum is stable. Mild pulmonary vascular congestion is present. Reticular interstitial opacities are seen in both lungs. Minimal right basilar opacity is present. Thoracic spine degenerative changes are again noted Impression: 1. Cardiomegaly and aortic calcification. 2. Right basilar atelectasis/patchy infiltrate. Mild pulmonary vascular congestion. Electronically signed on Feb 27, 2017 6:08:31 PM FINISHED CARPET INSPECTOR by: Ida MCKENNA
[2017-02-27] MEDS ORDERED: FUROSEMIDE 40 MG/4 ML VIAL IVP ONE (18:41)
[2017-02-27] MEDS ORDERED: IPRATROPIUM/ALBUTEROL SULFATE 3 ML AMPUL.NEB NEB PRN (18:46)
[2017-02-27 20:06] VITALS: BMI 27.3
[2017-02-27] MEDS ORDERED: LEVALBUTEROL HCL 1.25 MG/3 ML AMPUL.NEB NEB PRN (21:01)
[2017-02-27] MEDS ORDERED: SALINE FLUSH 10 ML DISP.SYRIN IVF ONE (21:25)
[2017-02-27] MEDS ORDERED: APIXABAN 2.5 MG TABLET PO ONE (21:25)
[2017-02-27] MEDS: DILTIAZEM HCL 120 MG CAP.ER.24H PO SCH (21:35)
[2017-02-27] MEDS: APIXABAN 2.5 MG TABLET PO SCH (21:46)
[2017-02-27] MEDS ORDERED: APIXABAN 2.5 MG TABLET PO SCH (22:00)
[2017-02-28 06:30] LABS: BASOPHILS % 0.3 (0.0-1.5); EOSINOPHILS % 1.9 % (0.0-6.8); MEAN CORPUSCULAR HEMOGLOBIN 24.2 pg (28.0-34.0); MEAN CORPUSCULAR VOLUME 79.9 fl (80.0-100.0); MONOCYTES % 2.7 % (0.0-11.0); NEUTROPHILS # 2.6 # k/uL (1.4-7.7)
[2017-02-28 06:48] LABS: eGFR (African) > 60; eGFR (Non-African) > 60
[2017-02-28] MEDS ORDERED: FUROSEMIDE 40 MG/4 ML VIAL IVP SCH (07:00)
[2017-02-28] MEDS: DILTIAZEM HCL 120 MG CAP.ER.24H PO SCH (08:28)
[2017-02-28] MEDS: APIXABAN 2.5 MG TABLET PO SCH (08:29)
[2017-02-28] MEDS ORDERED: ASPIRIN 81 MG CHEW TAB PO SCH (09:00)
[2017-02-28] MEDS ORDERED: LORATADINE 10 MG TABLET PO SCH (09:00)
[2017-02-28] MEDS ORDERED: DIGOXIN 125 MCG TABLET PO SCH (09:00)
[2017-02-28] MEDS ORDERED: POTASSIUM CHLORIDE 10 MEQ TABLET.ER PO SCH (09:00)
[2017-02-28] MEDS ORDERED: ATORVASTATIN CALCIUM 10 MG PO SCH (09:00)
[2017-02-28] MEDS ORDERED: QUINAPRIL HCL 20 MG TABLET PO SCH (09:00)
[2017-02-28 13:55] VITALS: BP 95/50
--- NOTE | 2017-04-12 13:48 | Discharge Summary ---
Discharge Summary - Discharge Sumary History of Present Illness: 81-year-old white female who have a history of COPD. Patient states that two days prior to admission start having some increasing shortness of breath dyspnea. Patient developed a cough that was productive of some clear to white phlegm. Patient was subsequently seen in the emergency room. Patient was noted to be hypoxemia. Patient was given several breathing treatments without any improvement. Patient was subsequently admitted to the hospital for further care evaluation. Condition at Discharge: Stable Home Medications: Ambulatory Orders Medication Instructions Recorded Budesonide/Formoterol Fumarate 2 puff IH BID #1 hfa.aer.ad 02/28/17 [Symbicort 80-4.5 Mcg Inhaler] Allergies/Adverse Reactions: Allergies Allergy/AdvReac Type Severity Reaction Status Date / Time pravastatin Allergy Verified 03/19/17 16:39 Discharge Summary: Chest x-ray did show some patching infiltrated possible, and I can get the consistent with congestive heart failure. Patient was started on nebulizer treatments Duoneb. Patient was started on IV steroids. About that the patient is having more of an exacerbation of her COPD acute action. Patient was given some I be late for congestive heart failure symptoms. At the time of dismissal patients symptoms were approved. Without that the patient could be treated on an outpatient basis and was subsequently discharged in stable condition. - Final Diagnosis (1) Acute exacerbation of chronic obstructive airways disease Problems: improved (2) CHF (congestive heart failure) Problems: improved
== END 2017-02-28 14:15 | disposition home or self-care (01) ==
LOC: ED 16:39 → INTOOBSV 18:37 → SOUTH 18:37
PROVIDERS: ADMIT Family Medicine; ATTEND Family Medicine
DX: J44.1 Chronic obstructive pulmonary disease with (acute) exacerbation (principal); I50.9 Heart failure, unspecified; Z87.891 Personal history of nicotine dependence
CPT/HCPCS: 36415; 71020; 80053; 83880; 85025; 94640; 96360; 96374; 96375; 99283; 99284; G0378; J1940; J2930; J7030; J7614; 99217; G0379; S1016

== ENCOUNTER 2017-03-05 10:53 | Observation (INO) | payer MEDICARE, OTHER ==
--- NOTE | 2017-03-05 10:59 | ED Physician Documentation ---
General Adult - HISTORIAN Historian: patient - HPI Stated Complaint: sob Chief Complaint: General Adult Onset: days ago (1) Timing: still present Severity: moderate Further Comments: yes (Pt is an 81 yo female with sob. Pt has hx COPD and afib and was admitted here 02/27/17 with similar complaints. Pt has not had chest pain, n/v, but "just doesn't feel well," and feels that "I can't get my breath. " Pt has home O2 that she uses prn and at night. 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 Pt's SpO2 is in mid 90% on RA on presentation.) - ROS CONST: other (malaise) EYES/ENT: none CVS/RESP: shortness of breath GI/: none MS/SKIN/LYMPH: none - PAST HX Past History: other (COPD, HLD, Hyptertropic cardiomyopathy, DMII, Afib, HTN.) Surgeries/Procedures: cholecystectomy, hysterectomy Allergies/Adverse Reactions: Allergies Allergy/AdvReac Type Severity Reaction Status Date / Time No Known Allergies Allergy Verified 03/05/17 11:02 Home Medications: Ambulatory Orders Medication Instructions Recorded Aspirin [Kate] 81 mg PO DAILY 08/27/14 Digoxin [Lanoxin] 12.5 mg PO DAILY 08/27/14 Diltiazem HCl [Tiazac] 240 mg PO DAILY 08/27/14 Quinapril HCl 20 mg PO DAILY 08/27/14 Calcium Citrate/Vitamin D3 1 tab PO D 07/02/16 [Calcium Citrate +Vit D3 Tablet] Loratadine [Claritin] 10 mg PO D 07/02/16 Potassium Chloride [Klor-Con M10] 10 meq PO BID 10/18/16 Apixaban [Eliquis] 5 mg PO BID #180 tablet 02/28/17 Budesonide/Formoterol Fumarate 2 puff IH BID #1 hfa.aer.ad 02/28/17 [Symbicort 80-4.5 Mcg Inhaler] Ipratropium/Albuterol Sulfate 3 ml NEB Q4 PRN #60 vial 02/28/17 [Duoneb] - SOCIAL HX Smoking History: quit greater than 1 year - FAMILY HX Family History: No - VITAL SIGNS Vital Signs: Vital Signs Temp Pulse Resp BP Pulse Ox 95/50 02/28/17 13:54 - REVIEWED ASSESSMENTS Nursing Assessment Reviewed: Yes Vitals Reviewed: Yes Progress - Progress Progress: Duoneb HFN NS 500 cc IV bolus Admit to Dr. Retana, hyponatremia, elevated BNP, sob. - EKG/XRAY/CT EKG: rhythm (afib, HR=84; low voltage.) XRAY: chest (Stable interstitial changes. No acute pulmonary process.) General Adult Physical Exam - PHYSICAL EXAM GENERAL APPEARANCE: moderate distress EENT: pharynx normal NECK: normal inspection, supple RESPIRATORY: chest non-tender, wheezes, other (distant breath sounds) CVS: irregularly irregular rhy ABDOMEN: soft, no organomegaly, normal bowel sounds BACK: normal inspection, no CVA tenderness SKIN: warm/dry, normal color EXTREMITIES: non-tender, normal range of motion, no evidence of injury NEURO: oriented X3, motor nml, sensation nml Discharge Clincal Impression: Hyponatremia, elevated BNP, Shortness of breath Condition: Stable Disposition: ADMITTED INPATIENT Decision to Admit: [id number] Decision Time: 14:20
[2017-03-05] MEDS ORDERED: IPRATROPIUM/ALBUTEROL SULFATE 3 ML AMPUL.NEB NEB ONE (11:24)
[2017-03-05 11:31] LABS: BASOPHILS % 0.7 (0.0-1.5); EOSINOPHILS % 1.1 % (0.0-6.8); MEAN CORPUSCULAR HEMOGLOBIN 24.7 pg (28.0-34.0); MEAN CORPUSCULAR VOLUME 80.8 fl (80.0-100.0); MONOCYTES % 5.5 % (0.0-11.0); NEUTROPHILS # 5.9 # k/uL (1.4-7.7)
[2017-03-05 11:46] LABS: eGFR (African) > 60; eGFR (Non-African) > 60
[2017-03-05] MEDS ORDERED: 0.9 % SODIUM CHLORIDE 500 ML IV ONE (11:59)
[2017-03-05] MEDS ORDERED: FLUTICASONE/SALMETEROL 250-50 INHALER IH ONE (14:40)
[2017-03-05] MEDS ORDERED: IPRATROPIUM/ALBUTEROL SULFATE 3 ML AMPUL.NEB NEB PRN (14:40)
--- NOTE | 2017-03-05 14:57 | Diagnostic Imaging Report ---
RICK CORTEZ [facility] [address] [facility] [address] [place] [address]. 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 Physician: RICK CORTEZ Examination: Portable chest History: Chest discomfort Comparison exam: 27 February 2017 Findings: Single view of the chest demonstrates an enlarged cardiac silhouette. Vascular calcification involving the aortic arch. Stable interstitial changes. Lung torres without focal infiltrate. No blunting of the costophrenic margins. Osseous structures are appropriate for age. Impression: Stable interstitial changes. No acute pulmonary process. Electronically signed on Mar 05, 2017 11:40:13 AM TILE CLASSIFIER by: Eliel MCKENNA
[2017-03-05] MEDS ORDERED: ATORVASTATIN CALCIUM 80 MG TABLET PO SCH (15:00)
[2017-03-05] MEDS: 0.9 % SODIUM CHLORIDE 1,000 ML IV SCH (15:30)
[2017-03-05 15:47] VITALS: BMI 26.4
--- NOTE | 2017-03-05 17:57 | History and Physical Report ---
History of Present Illnes - History of Present Illness Reason for Visit: not feeling well History of Present Illness: 81-year-old white female who was recently admitted to the hospital for COPD exacerbation/bronchitis. Patient was treated with antibiotic therapy and IV steroid therapy. Patient was discharged home to finish out her course of antibiotic therapy. Patient was placed on Symbicort. Patient states that she did make some improvement the first couple days she was home and and started having some increasing shortness of breath again. Patient states that she is not been feeling well over the last several days. Patient denies any fever or chills. Patient is not had any chest pain. Patient denies any nausea vomiting or diarrhea. Denies any increasing in her weight or pedal edema. Patient was subsequently came into the emergency room to be evaluated. Patient was noted to be markedly hyponatremia with a NA of 119. Patient was subsequently admitted to the hospital for further care and evaluation. 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 negative: Fever, Chills Eyes: negative: pain, vision change ENT: negative: Ear Pain, Ear Discharge, Nose Pain, Nose Discharge, Nose Congestion, Mouth Swelling, Throat Pain, Throat Swelling Respiratory: Cough, Dry, Shortness of Breath, SOB with Excertion. negative: Hemoptysis, Pleuritic Pain, Sputum, Wheezing Cardiovascular: negative: Chest Pain, Palpitations, Orthopnea, Paroxysmal Noc. Dyspnea, Edema, Light Headedness Gastrointestinal: Constipation. negative: Nausea, Vomiting, Abdominal Pain, Diarrhea, Hematochezia Genitourinary: negative: Dysuria, Frequency, Incontinence, Hematuria Musculoskeletal: negative: Back Pain Skin: negative: Rash, Lesions Neurological: Weakness (generalized). negative: Numbness, Incoordination, Change in Speech - Medications/Allergies Allergies/Adverse Reactions: Allergies Allergy/AdvReac Type Severity Reaction Status Date / Time No Known Allergies Allergy Verified 03/05/17 11:02 Current Inpatient Medications: Current Inpatient Medications Albuterol/Ipratropium (Duoneb) 3 ml NEB Q4 PRN PRN Reason: shortness of breath Last Admin: 03/05/17 16:39 Dose: 3 ml Aspirin (Aspirin) 81 mg PO DAILY GIORGIO Atorvastatin Calcium (Lipitor) 10 mg PO HS GIORGIO Last Admin: 03/05/17 15:26 Dose: Not Given Digoxin (Lanoxin) 12,500 mcg PO DAILY GIORGIO Diltiazem HCl (Cardizem Cd) 240 mg PO DAILY GIORGIO Furosemide (Lasix) 40 mg PO DAILY GIORGIO Sodium Chloride (Normal Saline) 1,000 mls @ 100 mls/hr IV Q10H GIORGIO Last Admin: 03/05/17 15:30 Dose: 100 mls/hr Loratadine (Claritin) 10 mg PO D GIORGIO Metformin HCl (Glucophage) 500 mg PO BID GIORGIO Potassium Chloride (Klor-Con 10) 10 meq PO BID GIORGIO Quinapril HCl (Accupril) 20 mg PO DAILY GIORGIO Fluticasone/Salmeterol (Advair 250-50 Diskus) 1 each IH NOW ONE Stop: 03/05/17 14:41 Last Admin: 03/05/17 15:33 Dose: 1 inh Exam - Exam Vital Signs: Vital Signs (72 hours) 03/05/17 03/05/17 03/05/17 14:26 14:40 17:39 Temperature 98.4 F 98.1 F 97.6 F Pulse Rate [ 88 Pulse ox] Pulse Rate [ 95 H 18 L Right] Respiratory 28 H 18 81 H Rate Blood Pressure 138/67 149/86 120/65 [Right Arm] O2 Sat by Pulse 97 98 Oximetry General: Alert, Oriented to Person, Oriented to Place, Oriented to Time, Cooperative, Mild distress HEENT: Atraumatic, PERRLA, EOMI, Mouth Mucous membr. moist/[place], Nose Mucous membr. moist/[place], Dentition Normal, Hearing Grossly Normal Neck: Normal Range of Motion Carotids: WNL Thyroid: WNL Lungs: Clear to auscultation, Normal air movement, Speaks full Sentences, Rales (R>L), Rhonchi (R>L). No: Wheezes Cardiovascular: Normal S1, Normal S2, No murmurs, Irregularly Irregular Abdomen: Normal bowel sounds, Soft, No tenderness, No hepatospenomegaly, No masses Integumentary: Normal, [place], Warm, Dry Extremities: No clubbing, No cyanosis, No edema, Normal pulses, No tenderness/ swelling Neurological: Normal gait, Normal speech, Strength Equal Bilat, Normal tone, Sensation intact, Cranial nerves 3-12 NL, Reflexes 2+ Psych/Mental Status: Mental status NL, Mood NL, Appropriate Affect, Intact Judgment Assessment/Plan - Assessment/Plan (1) Hyponatremia Status: Acute Current Visit: Yes (2) COPD (chronic obstructive pulmonary disease) Status: Acute Current Visit: No Qualifiers: COPD type: COPD with acute exacerbation Qualified Code(s): J44.1 - Chronic obstructive pulmonary disease with (acute) exacerbation (3) Essential hypertension Status: Acute Current Visit: No (4) A-fib Status: Chronic Current Visit: No Qualifiers: Atrial fibrillation type: chronic Qualified Code(s): I48.2 - Chronic atrial fibrillation (5) Chronic anticoagulation Status: Chronic Current Visit: No (6) Type 2 diabetes mellitus Status: Chronic Current Visit: No Qualifiers: Diabetes mellitus complication status: without complication 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
[2017-03-05] MEDS ORDERED: SALINE FLUSH 10 ML DISP.SYRIN IVF ONE (18:35)
[2017-03-05] MEDS: FUROSEMIDE 20 MG/2 ML VIAL IVP SCH ×2 (18:38→20:20)
[2017-03-05] MEDS: methylPREDNISolone SOD SUCC 40 MG/ML VIAL IVP SCH ×2 (18:38→20:21)
[2017-03-05] MEDS: POTASSIUM CHLORIDE 10 MEQ TABLET.ER PO SCH (20:38)
[2017-03-05] MEDS: APIXABAN 2.5 MG TABLET PO SCH (20:38)
[2017-03-06] MEDS: 0.9 % SODIUM CHLORIDE 1,000 ML IV SCH (01:12)
[2017-03-06] MEDS ORDERED: SALINE FLUSH 10 ML DISP.SYRIN IVF ONE ×2 (03:17→18:34)
[2017-03-06 07:16] LABS: BASOPHILS % 0.2 (0.0-1.5); EOSINOPHILS % 0.3 % (0.0-6.8); MEAN CORPUSCULAR HEMOGLOBIN 24.3 pg (28.0-34.0); MEAN CORPUSCULAR VOLUME 81.9 fl (80.0-100.0); MONOCYTES % 2.8 % (0.0-11.0); NEUTROPHILS # 3.6 # k/uL (1.4-7.7)
[2017-03-06 08:06] LABS: eGFR (African) > 60; eGFR (Non-African) > 60
[2017-03-06] MEDS ORDERED: DIGOXIN 125 MCG TABLET PO SCH ×2 (09:00→09:16)
[2017-03-06] MEDS ORDERED: methylPREDNISolone ACETATE 80 MG/ML VIAL IM SCH (09:00)
[2017-03-06] MEDS ORDERED: FUROSEMIDE 40 MG TABLET PO SCH (09:00)
--- NOTE | 2017-03-06 09:03 | Inpatient Progress Note ---
Subjective - Required Recertification Statement I anticipate X number of days because-include discharge plan: 1 - Review of Systems Events since last encounter: Patient states that she seems to be doing some better today. Is still getting short of breath with exertion. Cough is some better. No chest pain noted. Objective - Exam Vitals and I&O: Vital Signs Temp 97 F L 03/06/17 07:59 Pulse 69 03/06/17 07:59 Resp 22 03/06/17 07:59 BP 143/93 03/06/17 07:59 Pulse Ox 97 03/06/17 07:59 Intake & Output 03/05/17 03/05/17 03/06/17 11:59 23:59 11:59 Intake Total 640 200 Output Total 1500 2400 Balance -860 -2200 Weight 69.853 kg 68.492 kg Intake: Oral 640 200 Output: Urine 1500 2400 Stool 0 Other: Voiding Method Toilet # Voids 7 # Bowel Movements 1 - Results Results: Laboratory Results WBC 4.60 K/ul (4.00-12.00) 03/06/17 07:05 RBC 4.70 M/ul (3.90-5.20) 03/06/17 07:05 Hgb 11.4 g/dL (12.0-16.0) L 03/06/17 07:05 Hct 38.4 % (34.5-46.5) 03/06/17 07:05 MCV 81.9 fl (80.0-100.0) 03/06/17 07:05 MCH 24.3 pg (28.0-34.0) L 03/06/17 07:05 MCHC 29.7 g/dL (30.0-36.0) L 03/06/17 07:05 RDW 14.3 % (11.3-14.3) 03/06/17 07:05 Plt Count 378 K/mm3 (130-400) 03/06/17 07:05 Neut % (Auto) 77.7 % (39.0-79.0) 03/06/17 07:05 Lymph % (Auto) 16.5 % (16.0-50.0) 03/06/17 07:05 [place] % (Auto) 2.8 % (0.0-11.0) 03/06/17 07:05 Eos % (Auto) 0.3 % (0.0-6.8) 03/06/17 07:05 Baso % (Auto) 0.2 (0.0-1.5) 03/06/17 07:05 Neut # (Auto) 3.6 # k/uL (1.4-7.7) 03/06/17 07:05 Lymph # (Auto) 0.8 # k/uL (0.6-4.0) 03/06/17 07:05 [place] # (Auto) 0.1 # k/uL (0.0-0.9) 03/06/17 07:05 Eos # (Auto) 0.0 # k/uL (0.0-0.6) 03/06/17 07:05 Baso # (Auto) 0.0 # k/uL (0.0-0.5) 03/06/17 07:05 Reactive Lymphs % 2.5 % (0.0-5.0) 03/06/17 07:05 Reactive Lymphs # 0.1 # k/uL (0.0-0.8) 03/06/17 07:05 Sodium 130 mmol/L (136-145) L 03/06/17 07:05 Potassium 4.1 mmol/L (3.5-5.1) 03/06/17 07:05 Chloride 94 mmol/L (98-107) L 03/06/17 07:05 Carbon Dioxide 27 mmol/L (22-30) 03/06/17 07:05 BUN 8 mg/dL (7-17) 03/06/17 07:05 Creatinine 0.80 mg/dL (0.52-1.04) 03/06/17 07:05 Estimated Creat Clear 71 03/06/17 07:05 Est GFR ( Amer) > 60 (60-) 03/06/17 07:05 Est GFR (Non-Af Amer) > 60 (60-) 03/06/17 07:05 Glucose 129 mg/dL (74-106) H 03/06/17 07:05 Calcium 8.5 mg/dL (8.4-10.2) 03/06/17 07:05 Total Bilirubin 0.4 mg/dL (0.2-1.3) 03/06/17 07:05 AST 17 U/L (15-46) 03/06/17 07:05 ALT 20 U/L (13-69) 03/06/17 07:05 Alkaline Phosphatase 72 U/L (38-126) 03/06/17 07:05 Creatine Kinase 31 U/L (30-135) 03/05/17 11:25 CK-MB (CK-2) 2.6 ng/mL (0.0-5.6) 03/05/17 11:25 Troponin I < 0.03 ng/mL (0.03-0.06) L 03/05/17 11:25 NT-Pro-B Natriuret Pep 2025.9 pg/mL (15.0-450.0) H 03/05/17 11:25 Total Protein 6.7 g/dL (6.3-8.2) 03/06/17 07:05 Albumin 3.6 g/dL (3.5-5.0) 03/06/17 07:05 Assessment/Plan - Assessment/Plan (1) Hyponatremia Status: Acute Assessment: improved to 130. Will stop IV fluids and fluid restrictions. (2) COPD (chronic obstructive pulmonary disease) Status: Chronic Narrative Support Text: interstitial lung disease, appears stable on x-ray. (3) Essential hypertension Status: Acute (4) A-fib Status: Chronic Qualifiers: Atrial fibrillation type: chronic Qualified Code(s): I48.2 - Chronic atrial fibrillation (5) Chronic anticoagulation Status: Chronic (6) Type 2 diabetes mellitus Status: Chronic Qualifiers: Diabetes mellitus complication status: without complication Diabetes mellitus [facility] insulin use: without terminal worker use Qualified Code(s): E11.9 - Type 2 diabetes mellitus without complications
[2017-03-06] MEDS ORDERED: DIGOXIN 125 MCG TABLET PO ONE (09:05)
[2017-03-06] MEDS: QUINAPRIL HCL 20 MG TABLET PO SCH (09:13)
[2017-03-06] MEDS: LORATADINE 10 MG TABLET PO SCH (09:13)
[2017-03-06] MEDS: DILTIAZEM HCL 120 MG CAP.ER.24H PO SCH (09:14)
[2017-03-06] MEDS: ASPIRIN 81 MG CHEW TAB PO SCH (09:14)
[2017-03-06] MEDS: APIXABAN 2.5 MG TABLET PO SCH ×2 (09:16→19:44)
[2017-03-06] MEDS: POTASSIUM CHLORIDE 10 MEQ TABLET.ER PO SCH ×2 (09:17→19:43)
[2017-03-06] MEDS: FUROSEMIDE 20 MG/2 ML VIAL IVP SCH ×2 (09:18→19:46)
[2017-03-06] MEDS: methylPREDNISolone SOD SUCC 40 MG/ML VIAL IVP SCH ×2 (10:46→19:45)
[2017-03-06] MEDS: DIGOXIN 125 MCG TABLET PO SCH (10:47)
[2017-03-06] MEDS ORDERED: methylPREDNISolone SOD SUCC 40 MG/ML VIAL IVP SCH (21:00)
[2017-03-07 09:57] LABS: eGFR (African) > 60; eGFR (Non-African) > 60
[2017-03-07] MEDS: FUROSEMIDE 20 MG/2 ML VIAL IVP SCH ×2 (11:28→20:34)
[2017-03-07] MEDS: APIXABAN 2.5 MG TABLET PO SCH ×2 (11:31→20:17)
[2017-03-07] MEDS: POTASSIUM CHLORIDE 10 MEQ TABLET.ER PO SCH ×2 (11:32→20:17)
[2017-03-07] MEDS: DILTIAZEM HCL 120 MG CAP.ER.24H PO SCH (11:33)
[2017-03-07] MEDS: ASPIRIN 81 MG CHEW TAB PO SCH (11:33)
[2017-03-07] MEDS: DIGOXIN 125 MCG TABLET PO SCH (11:34)
[2017-03-07] MEDS: LORATADINE 10 MG TABLET PO SCH (11:34)
[2017-03-07] MEDS: methylPREDNISolone SOD SUCC 40 MG/ML VIAL IVP SCH ×2 (11:35→20:18)
[2017-03-07] MEDS: QUINAPRIL HCL 20 MG TABLET PO SCH (11:39)
[2017-03-07] MEDS ORDERED: SALINE FLUSH 10 ML DISP.SYRIN IVF ONE ×2 (11:42→20:35)
--- NOTE | 2017-03-07 15:02 | Diagnostic Imaging Report ---
[facility]MED SURG [facility] [address] [facility] [address] [address] Report Submission Date: Mar 07, 2017 1:47:05 PM HOOKER OPERATOR Patient Study Name: MIRANDA HENDRICKSON Date: Mar 07, 2017 1:24:17 PM HOOKER OPERATOR Modality Type: CR Gender: F Description: CHEST : 37 Institution: [facility] Physician: [facility] /MED SURG Examination: Portable chest History: Chest discomfort Comparison exam: 05 March 2017 Findings: Single view of the chest demonstrates an enlarged cardiac silhouette. Vascular calcification involving the aortic arch. Stable hilar vascular prominence. Stable interstitial changes. Lung torres without focal infiltrate. No blunting of the costophrenic margins. Osseous structures are appropriate for age. Impression: Stable interstitial changes. No acute pulmonary process. Electronically signed on Mar 07, 2017 1:47:05 PM HOOKER OPERATOR by: Eliel MCKENNA
[2017-03-08 08:37] VITALS: BP 91/48
[2017-03-08] MEDS: POTASSIUM CHLORIDE 10 MEQ TABLET.ER PO SCH (08:55)
[2017-03-08] MEDS: APIXABAN 2.5 MG TABLET PO SCH (08:55)
[2017-03-08] MEDS: DILTIAZEM HCL 120 MG CAP.ER.24H PO SCH (08:55)
[2017-03-08] MEDS: ASPIRIN 81 MG CHEW TAB PO SCH (08:56)
[2017-03-08] MEDS: QUINAPRIL HCL 20 MG TABLET PO SCH (08:56)
[2017-03-08] MEDS: LORATADINE 10 MG TABLET PO SCH (08:56)
[2017-03-08] MEDS: DIGOXIN 125 MCG TABLET PO SCH (08:56)
[2017-03-08] MEDS: methylPREDNISolone SOD SUCC 40 MG/ML VIAL IVP SCH (08:57)
[2017-03-08] MEDS: FUROSEMIDE 20 MG/2 ML VIAL IVP SCH (08:57)
--- NOTE | 2017-04-12 13:55 | Inpatient Progress Note ---
Subjective - Required Recertification Statement I anticipate X number of days because-include discharge plan: 1 day - Review of Systems Events since last encounter: Patient data the breathing continue to improve. Patient data she is feeling well enough that she feels that she can go home. We are trying to make some arrangements to make her home situation better. Patient continued to need some oxygen in order to support her FAO to be greater than 90%. Objective - Exam Vitals and I&O: Vital Signs Temp 97.3 F L 03/08/17 08:35 Pulse 98 H 03/08/17 10:00 Resp 18 03/08/17 10:00 BP 91/48 03/08/17 08:35 Pulse Ox 89 L 03/08/17 08:35 General: Alert, Oriented to Person, Oriented to Place, Oriented to Time Neck: Supple Lungs: Clear to auscultation, Normal air movement, Speaks full Sentences, Rhonchi (few scattered) Cardiovascular: Regular rate, Normal S1, Normal S2, No murmurs Extremities: No clubbing, No cyanosis, No edema Skin: Normal, Warm Psych/Mental Status: Mental status NL (mild confusion at times) - Results Results: Laboratory Results WBC 4.60 K/ul (4.00-12.00) 03/06/17 07:05 RBC 4.70 M/ul (3.90-5.20) 03/06/17 07:05 Hgb 11.4 g/dL (12.0-16.0) L 03/06/17 07:05 Hct 38.4 % (34.5-46.5) 03/06/17 07:05 MCV 81.9 fl (80.0-100.0) 03/06/17 07:05 MCH 24.3 pg (28.0-34.0) L 03/06/17 07:05 MCHC 29.7 g/dL (30.0-36.0) L 03/06/17 07:05 RDW 14.3 % (11.3-14.3) 03/06/17 07:05 Plt Count 378 K/mm3 (130-400) 03/06/17 07:05 Neut % (Auto) 77.7 % (39.0-79.0) 03/06/17 07:05 Lymph % (Auto) 16.5 % (16.0-50.0) 03/06/17 07:05 [place] % (Auto) 2.8 % (0.0-11.0) 03/06/17 07:05 Eos % (Auto) 0.3 % (0.0-6.8) 03/06/17 07:05 Baso % (Auto) 0.2 (0.0-1.5) 03/06/17 07:05 Neut # (Auto) 3.6 # k/uL (1.4-7.7) 03/06/17 07:05 Lymph # (Auto) 0.8 # k/uL (0.6-4.0) 03/06/17 07:05 [place] # (Auto) 0.1 # k/uL (0.0-0.9) 03/06/17 07:05 Eos # (Auto) 0.0 # k/uL (0.0-0.6) 03/06/17 07:05 Baso # (Auto) 0.0 # k/uL (0.0-0.5) 03/06/17 07:05 Reactive Lymphs % 2.5 % (0.0-5.0) 03/06/17 07:05 Reactive Lymphs # 0.1 # k/uL (0.0-0.8) 03/06/17 07:05 Sodium 133 mmol/L (136-145) L 03/07/17 09:30 Potassium 3.8 mmol/L (3.5-5.1) 03/07/17 09:30 Chloride 91 mmol/L (98-107) L 03/07/17 09:30 Carbon Dioxide 30 mmol/L (22-30) 03/07/17 09:30 BUN 17 mg/dL (7-17) 03/07/17 09:30 Creatinine 1.00 mg/dL (0.52-1.04) 03/07/17 09:30 Estimated Creat Clear 56 03/07/17 09:30 Est GFR ( Amer) > 60 (60-) 03/07/17 09:30 Est GFR (Non-Af Amer) > 60 (60-) 03/07/17 09:30 Glucose 96 mg/dL (74-106) 03/07/17 09:30 Calcium 9.0 mg/dL (8.4-10.2) 03/07/17 09:30 Total Bilirubin 0.3 mg/dL (0.2-1.3) 03/07/17 09:30 AST 18 U/L (15-46) 03/07/17 09:30 ALT 16 U/L (13-69) 03/07/17 09:30 Alkaline Phosphatase 57 U/L (38-126) 03/07/17 09:30 Creatine Kinase 31 U/L (30-135) 03/05/17 11:25 CK-MB (CK-2) 2.6 ng/mL (0.0-5.6) 03/05/17 11:25 Troponin I < 0.03 ng/mL (0.03-0.06) L 03/05/17 11:25 NT-Pro-B Natriuret Pep 2025.9 pg/mL (15.0-450.0) H 03/05/17 11:25 Total Protein 6.6 g/dL (6.3-8.2) 03/07/17 09:30 Albumin 3.7 g/dL (3.5-5.0) 03/07/17 09:30 Assessment/Plan - Assessment/Plan (1) Hyponatremia Status: Acute Assessment: has improved to 132 (2) COPD (chronic obstructive pulmonary disease) Status: Chronic (3) Essential hypertension Status: Acute (4) A-fib Status: Chronic Qualifiers: Atrial fibrillation type: chronic Qualified Code(s): I48.2 - Chronic atrial fibrillation (5) Chronic anticoagulation Status: Chronic (6) Type 2 diabetes mellitus Status: Chronic Qualifiers: Diabetes mellitus complication status: without complication Diabetes mellitus mcfp insulin use: without mcfp use Qualified Code(s): E11.9 - Type 2 diabetes mellitus without complications
--- NOTE | 2017-04-12 13:56 | Discharge Summary ---
Discharge Summary - Discharge Sumary Condition at Discharge: Stable Home Medications: Ambulatory Orders Medication Instructions Recorded Budesonide/Formoterol Fumarate 2 puff IH BID #1 hfa.aer.ad 02/28/17 [Symbicort 80-4.5 Mcg Inhaler] Consultations this Visit: None Procedures this Visit: None Allergies/Adverse Reactions: Allergies Allergy/AdvReac Type Severity Reaction Status Date / Time pravastatin Allergy Verified 03/19/17 16:39 Discharge Summary: Patient was placed on fluid restriction for her hyponatremia. Patient was started on IV normal saline. Patient sodium level did improve to 133 at the time the dismissal. Patient did remain asymptomatic concerning her hyponatremia. Patient COPD remain stable. Patient congestive heart they remain stable. Patient diabetes mellitus remains stable with blood sugars running in the lower to mid 100 range. No hypoglycemic episodes were noted. Patient was subsequently discharged in stable condition. - Final Diagnosis (1) Hyponatremia Problems: improved (2) COPD (chronic obstructive pulmonary disease) Problems: Stable Right or Left: Left (stable) (3) Essential hypertension Problems: Stable on home medications (4) A-fib Problems: Stable rate control on home medications, patient remained on anticoagulation therapy. (5) Chronic anticoagulation Problems: stable with no bleeding (6) Type 2 diabetes mellitus Problems: stable on home medications
== END 2017-03-08 11:30 | disposition home or self-care (01) ==
LOC: ED 10:53 → SOUTH 14:16
PROVIDERS: ADMIT Family Medicine; ATTEND Family Medicine
DX: E87.1 Hypo-osmolality and hyponatremia (principal); J44.1 Chronic obstructive pulmonary disease with (acute) exacerbation; I10 Essential (primary) hypertension; I48.2 Chronic atrial fibrillation; E11.9 Type 2 diabetes mellitus without complications; Z87.891 Personal history of nicotine dependence; Z79.01 Long term (current) use of anticoagulants
CPT/HCPCS: 36415; 71010; 80053; 82550; 82553; 83880; 84484; 85025; 93005; 93306; 94640; 94760; 96360; 96361; 99283; 99284; G0378; J1030; J1940; J7030; J7060; 99217; 99219; 99225; J2920; S1016

== ENCOUNTER 2017-03-19 16:30 | Inpatient (IN) | payer MEDICARE, OTHER ==
--- NOTE | 2017-03-19 17:06 | History and Physical Report ---
History of Present Illnes - History of Present Illness Reason for Visit: weakness History of Present Illness: Patient is an 81-year-old white female who is been having some increasing shortness of breath dyspnea felt to be associated with her COPD. Patient has been hospitalized twice for short state at [facility] for this. Patient was seen by manager in home and it was felt that she was continue to have some dyspnea was subsequently admitted to [facility] for further evaluation and treatment. Cardiology workup did not show any substantial cardiac problem. Patient was seen by a roll tube setter. It was felt that the patient did have COPD. Because of her repetitive hospitalization patient has become week and was felt that she would benefit from further skilled therapy. Patient was subsequently transferred to this institution for further rehab services. 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 Alcohol: Rare Drugs: None Lives: Alone Domestic Violence: Negative - Health Maintenance Health Maintenance: Cholesterol, Influenza Vaccine, Pneumococcal Vaccine Influenza Vaccine: Current for this Influenza Season Pneumonia Vaccine: Yes Resuscitation Status: full code - Unable to Obtain History Unable to Obtain: No Review of Systems - Review of Systems Constitutional: negative: Fever, Chills Eyes: negative: pain, vision change ENT: negative: Ear Pain, Ear Discharge, Nose Pain, Nose Congestion, Mouth Pain, Mouth Swelling, Throat Pain Respiratory: Cough, Dry, Shortness of Breath, SOB with Excertion. negative: Hemoptysis, Pleuritic Pain Cardiovascular: negative: Chest Pain, Palpitations, Orthopnea, Edema, Light Headedness Gastrointestinal: negative: Nausea, Vomiting, Abdominal Pain, Diarrhea, Constipation, Melena, Hematochezia Genitourinary: negative: Dysuria, Frequency, Incontinence, Hematuria, Retention Musculoskeletal: Back Pain Skin: negative: Rash Neurological: Weakness. negative: Numbness, Incoordination, Change in Speech, Confusion - Medications/Allergies Allergies/Adverse Reactions: Allergies Allergy/AdvReac Type Severity Reaction Status Date / Time pravastatin Allergy Verified 03/19/17 16:39 Exam - Exam General: Alert, Oriented to Person, Oriented to Place, Oriented to Time, Cooperative, No acute distress HEENT: Atraumatic, PERRLA, Mouth Mucous membr. moist/[place], Hearing Grossly Normal Neck: Normal Range of Motion. No: Stridor, Rigidity, Lymphadenopathy Carotids: WNL Thyroid: WNL Lungs: Normal air movement, Speaks full Sentences, Respiratory Distress, Rhonchi (few scattered) Cardiovascular: Regular rate, Normal S1, Normal S2, No murmurs. No: Gallops Abdomen: Normal bowel sounds, Soft, No tenderness, No hepatospenomegaly, No masses Integumentary: Normal, Warm, Dry Extremities: No clubbing, No cyanosis, No edema, Normal pulses Neurological: Normal speech, Strength Equal Bilat, Normal tone, Sensation intact , Cranial nerves 3-12 NL, Reflexes 2+. No: Normal gait Psych/Mental Status: Mental status NL, Mood NL, Appropriate Affect, Intact Judgment (some mild confusion) Assessment/Plan - Assessment/Plan (1) Gait disturbance Status: Acute (2) Shortness of breath Status: Acute (3) A-fib Status: Chronic Qualifiers: Atrial fibrillation type: chronic Qualified Code(s): I48.2 - Chronic atrial fibrillation (4) COPD (chronic obstructive pulmonary disease) Status: Chronic (5) Chronic anticoagulation Status: Chronic (6) Type 2 diabetes mellitus Status: Chronic Qualifiers: Diabetes mellitus complication status: without complication Diabetes mellitus penitentiary insulin use: without penitentiary use Qualified Code(s): E11.9 - Type 2 diabetes mellitus without complications VTE Assessment - RISK FACTOR SCORE VTE RISK FACTOR SCORES: AGE OVER 60 YEARS, ANTICIPATED BED CONFINEMENT OR IMMOBILIZATION > 24 HOURS - RISK VTE MODERATE RISK: SCORE OF 2 (RISK PROXIMAL DVT 2-4%) PROPHYAXIS NEEDED (on anticoagulation therapy.)
[2017-03-19] MEDS ORDERED: IPRATROPIUM/ALBUTEROL SULFATE 3 ML AMPUL.NEB NEB PRN (17:14)
[2017-03-19] MEDS ORDERED: FLUTICASONE/SALMETEROL 250-50 INHALER IH PRN (17:14)
[2017-03-19] MEDS ORDERED: ALBUTEROL SULFATE 200 PUFF INHALER INH PRN (17:47)
[2017-03-19 17:56] VITALS: BMI 27.1
[2017-03-19] MEDS ORDERED: LISINOPRIL 20 MG TABLET ONE ×2 (18:59→19:01)
[2017-03-19] MEDS: APIXABAN 2.5 MG TABLET PO SCH ×2 (19:03→19:56)
[2017-03-19] MEDS: ATORVASTATIN CALCIUM 80 MG TABLET PO SCH ×2 (19:03→19:56)
[2017-03-19] MEDS: METOPROLOL TARTRATE 25 MG TABLET PO SCH (19:56)
[2017-03-20] MEDS: predniSONE 10 MG TABLET PO SCH (09:07)
[2017-03-20] MEDS: APIXABAN 2.5 MG TABLET PO SCH ×2 (09:08→19:43)
[2017-03-20] MEDS: POTASSIUM CHLORIDE 10 MEQ TABLET.ER PO SCH (09:08)
[2017-03-20] MEDS: METOPROLOL TARTRATE 25 MG TABLET PO SCH ×2 (09:09→19:43)
[2017-03-20] MEDS: FUROSEMIDE 40 MG TABLET PO SCH (09:09)
[2017-03-20] MEDS ORDERED: FLUTICASONE/SALMETEROL 250-50 INHALER IH PRN (09:17)
[2017-03-20] MEDS: SIMVASTATIN 40 MG TABLET PO SCH (19:43)
[2017-03-21] MEDS: predniSONE 10 MG TABLET PO SCH (08:54)
[2017-03-21] MEDS: APIXABAN 2.5 MG TABLET PO SCH ×2 (08:55→20:02)
[2017-03-21] MEDS: POTASSIUM CHLORIDE 10 MEQ TABLET.ER PO SCH (08:55)
[2017-03-21] MEDS: METOPROLOL TARTRATE 25 MG TABLET PO SCH ×2 (08:55→20:03)
[2017-03-21] MEDS: FUROSEMIDE 40 MG TABLET PO SCH (08:55)
[2017-03-21] MEDS: SIMVASTATIN 40 MG TABLET PO SCH (20:03)
[2017-03-22 06:41] LABS: BASOPHILS % 0.6 (0.0-1.5); EOSINOPHILS % 2.2 % (0.0-6.8); MEAN CORPUSCULAR HEMOGLOBIN 24.3 pg (28.0-34.0); MEAN CORPUSCULAR VOLUME 80.1 fl (80.0-100.0); MONOCYTES % 5.5 % (0.0-11.0); NEUTROPHILS # 6.7 # k/uL (1.4-7.7)
[2017-03-22 07:00] LABS: eGFR (African) > 60; eGFR (Non-African) > 60
[2017-03-22] MEDS: predniSONE 10 MG TABLET PO SCH (08:44)
[2017-03-22] MEDS: POTASSIUM CHLORIDE 10 MEQ TABLET.ER PO SCH (08:44)
[2017-03-22] MEDS: FUROSEMIDE 40 MG TABLET PO SCH (08:46)
[2017-03-22] MEDS: APIXABAN 2.5 MG TABLET PO SCH ×2 (08:46→20:08)
[2017-03-22] MEDS: METOPROLOL TARTRATE 25 MG TABLET PO SCH ×2 (08:46→20:08)
[2017-03-22] MEDS: predniSONE 1 MG TABLET PO SCH (10:10)
[2017-03-22] MEDS: SIMVASTATIN 40 MG TABLET PO SCH (20:08)
[2017-03-23] MEDS: METOPROLOL TARTRATE 25 MG TABLET PO SCH ×2 (09:16→20:13)
[2017-03-23] MEDS: APIXABAN 2.5 MG TABLET PO SCH ×2 (09:16→20:13)
[2017-03-23] MEDS: POTASSIUM CHLORIDE 10 MEQ TABLET.ER PO SCH (09:17)
[2017-03-23] MEDS: FUROSEMIDE 40 MG TABLET PO SCH (09:17)
[2017-03-23] MEDS: predniSONE 1 MG TABLET PO SCH (09:18)
[2017-03-23] MEDS: SIMVASTATIN 40 MG TABLET PO SCH (20:14)
[2017-03-24] MEDS: predniSONE 1 MG TABLET PO SCH (09:28)
[2017-03-24] MEDS: FUROSEMIDE 40 MG TABLET PO SCH (09:29)
[2017-03-24] MEDS: METOPROLOL TARTRATE 25 MG TABLET PO SCH ×2 (09:29→19:56)
[2017-03-24] MEDS: APIXABAN 2.5 MG TABLET PO SCH ×2 (09:29→19:55)
[2017-03-24] MEDS: POTASSIUM CHLORIDE 10 MEQ TABLET.ER PO SCH (09:29)
[2017-03-24] MEDS: SIMVASTATIN 40 MG TABLET PO SCH (19:56)
[2017-03-25] MEDS: predniSONE 1 MG TABLET PO SCH ×2 (08:53→09:10)
[2017-03-25] MEDS: APIXABAN 2.5 MG TABLET PO SCH ×3 (08:54→21:47)
[2017-03-25] MEDS: METOPROLOL TARTRATE 25 MG TABLET PO SCH ×2 (08:54→19:21)
[2017-03-25] MEDS: FUROSEMIDE 40 MG TABLET PO SCH (08:54)
[2017-03-25] MEDS: POTASSIUM CHLORIDE 10 MEQ TABLET.ER PO SCH (08:54)
[2017-03-25] MEDS: SIMVASTATIN 40 MG TABLET PO SCH (19:21)
--- NOTE | 2017-03-26 07:54 | Inpatient Progress Note ---
Subjective - Required Recertification Statement I anticipate X number of days because-include discharge plan: 4 days - Review of Systems Events since last encounter: Patient continued to do well with her physical therapy. Patient is emulating much better. Patient that you continue to have some sort of the breath with ambulation but feels that that is improved also. Patient denies any chest pain or chest pressure. Patient diabetes mellitus has been doing well since her admission. Objective - Exam Vitals and I&O: Vital Signs Temp 97.9 F 03/25/17 20:12 Pulse 103 H 03/25/17 21:00 Resp 18 03/25/17 21:00 BP 109/66 03/25/17 20:12 Pulse Ox 96 03/25/17 20:12 Intake & Output 03/25/17 03/25/17 03/26/17 11:59 23:59 11:59 Intake Total 240 1080 Balance 240 1080 Weight 68.039 kg Intake: Oral 240 1080 Other: Voiding Method Toilet Toilet # Voids 2 4 2 General: Alert, Oriented to Person, Oriented to Place, Oriented to Time Neck: Supple Lungs: Clear to auscultation, Normal air movement, Speaks full Sentences. No: Wheezes, Rales, Rhonchi Cardiovascular: Normal S1, Normal S2, Irregularly Irregular Abdomen: Normal bowel sounds, Soft Extremities: No clubbing, No cyanosis, Other (trace edema) Skin: Normal Neurological: Normal speech Psych/Mental Status: Mental status NL, Appropriate Affect - Results Results: Laboratory Results WBC 9.10 K/ul (4.00-12.00) 03/22/17 06:15 RBC 3.75 M/ul (3.90-5.20) L 03/22/17 06:15 Hgb 9.1 g/dL (12.0-16.0) L 03/22/17 06:15 Hct 30.0 % (34.5-46.5) L 03/22/17 06:15 MCV 80.1 fl (80.0-100.0) 03/22/17 06:15 MCH 24.3 pg (28.0-34.0) L 03/22/17 06:15 MCHC 30.4 g/dL (30.0-36.0) 03/22/17 06:15 RDW 14.9 % (11.3-14.3) H 03/22/17 06:15 Plt Count 363 K/mm3 (130-400) 03/22/17 06:15 Neut % (Auto) 73.0 % (39.0-79.0) 03/22/17 06:15 Lymph % (Auto) 17.4 % (16.0-50.0) 03/22/17 06:15 [place] % (Auto) 5.5 % (0.0-11.0) 03/22/17 06:15 Eos % (Auto) 2.2 % (0.0-6.8) 03/22/17 06:15 Baso % (Auto) 0.6 (0.0-1.5) 03/22/17 06:15 Neut # (Auto) 6.7 # k/uL (1.4-7.7) 03/22/17 06:15 Lymph # (Auto) 1.6 # k/uL (0.6-4.0) 03/22/17 06:15 [place] # (Auto) 0.5 # k/uL (0.0-0.9) 03/22/17 06:15 Eos # (Auto) 0.2 # k/uL (0.0-0.6) 03/22/17 06:15 Baso # (Auto) 0.1 # k/uL (0.0-0.5) 03/22/17 06:15 Reactive Lymphs % 1.2 % (0.0-5.0) 03/22/17 06:15 Reactive Lymphs # 0.1 # k/uL (0.0-0.8) 03/22/17 06:15 Sodium 134 mmol/L (136-145) L 03/22/17 06:15 Potassium 3.7 mmol/L (3.5-5.1) 03/22/17 06:15 Chloride 99 mmol/L (98-107) 03/22/17 06:15 Carbon Dioxide 30 mmol/L (22-30) 03/22/17 06:15 BUN 23 mg/dL (7-17) H 03/22/17 06:15 Creatinine 1.00 mg/dL (0.52-1.04) 03/22/17 06:15 Estimated Creat Clear 30 03/22/17 06:15 Est GFR ( Amer) > 60 (60-) 03/22/17 06:15 Est GFR (Non-Af Amer) > 60 (60-) 03/22/17 06:15 Glucose 118 mg/dL (74-106) H 03/22/17 06:15 Calcium 8.2 mg/dL (8.4-10.2) L 03/22/17 06:15 Total Bilirubin 0.2 mg/dL (0.2-1.3) 03/22/17 06:15 AST 14 U/L (15-46) L 03/22/17 06:15 ALT 25 U/L (13-69) 03/22/17 06:15 Alkaline Phosphatase 58 U/L (38-126) 03/22/17 06:15 Total Protein 5.8 g/dL (6.3-8.2) L 03/22/17 06:15 Albumin 2.9 g/dL (3.5-5.0) L 03/22/17 06:15 Assessment/Plan - Assessment/Plan (1) Gait disturbance Status: Acute Assessment: Improved (2) Shortness of breath Status: Acute Assessment: Improved (3) A-fib Status: Chronic Qualifiers: Atrial fibrillation type: chronic Qualified Code(s): I48.2 - Chronic atrial fibrillation Assessment: Stable with no tachycardia or bradycardia (4) COPD (chronic obstructive pulmonary disease) Status: Chronic Assessment: Stable (5) Chronic anticoagulation Status: Chronic (6) Type 2 diabetes mellitus Status: Chronic Qualifiers: Diabetes mellitus complication status: without complication Diabetes mellitus residential insulin use: without residential use Qualified Code(s): E11.9 - Type 2 diabetes mellitus without complications Assessment: Stable
--- NOTE | 2017-03-26 07:54 | Inpatient Progress Note ---
Subjective - Required Recertification Statement I anticipate X number of days because-include discharge plan: 7 days - Review of Systems Events since last encounter: Patient has been participating well with occupational physical therapy. Patient does feel like she is making some progress in her ability to ambulate without assistance. Patient COPD has been stable. Patient chronic atrophic has been stable without a tachycardia bradycardia. Diabetes mellitus has been stable without any high pole or hypoglycemic episodes. Blood sugars have been in the mid 100 range. Objective - Exam Vitals and I&O: Vital Signs Temp 97.9 F 03/25/17 20:12 Pulse 103 H 03/25/17 21:00 Resp 18 03/25/17 21:00 BP 109/66 03/25/17 20:12 Pulse Ox 96 03/25/17 20:12 Intake & Output 03/25/17 03/25/17 03/26/17 11:59 23:59 11:59 Intake Total 240 1080 Balance 240 1080 Weight 68.039 kg Intake: Oral 240 1080 Other: Voiding Method Toilet Toilet # Voids 2 4 2 General: Alert, Oriented to Person, Oriented to Place, Oriented to Time, Cooperative Lungs: Clear to auscultation, Normal air movement, Speaks full Sentences Cardiovascular: Irregularly Irregular Skin: Normal, [place], Warm, Dry Psych/Mental Status: Mental status NL, Mood NL - Results Results: Laboratory Results WBC 9.10 K/ul (4.00-12.00) 03/22/17 06:15 RBC 3.75 M/ul (3.90-5.20) L 03/22/17 06:15 Hgb 9.1 g/dL (12.0-16.0) L 03/22/17 06:15 Hct 30.0 % (34.5-46.5) L 03/22/17 06:15 MCV 80.1 fl (80.0-100.0) 03/22/17 06:15 MCH 24.3 pg (28.0-34.0) L 03/22/17 06:15 MCHC 30.4 g/dL (30.0-36.0) 03/22/17 06:15 RDW 14.9 % (11.3-14.3) H 03/22/17 06:15 Plt Count 363 K/mm3 (130-400) 03/22/17 06:15 Neut % (Auto) 73.0 % (39.0-79.0) 03/22/17 06:15 Lymph % (Auto) 17.4 % (16.0-50.0) 03/22/17 06:15 [place] % (Auto) 5.5 % (0.0-11.0) 03/22/17 06:15 Eos % (Auto) 2.2 % (0.0-6.8) 03/22/17 06:15 Baso % (Auto) 0.6 (0.0-1.5) 03/22/17 06:15 Neut # (Auto) 6.7 # k/uL (1.4-7.7) 03/22/17 06:15 Lymph # (Auto) 1.6 # k/uL (0.6-4.0) 03/22/17 06:15 [place] # (Auto) 0.5 # k/uL (0.0-0.9) 03/22/17 06:15 Eos # (Auto) 0.2 # k/uL (0.0-0.6) 03/22/17 06:15 Baso # (Auto) 0.1 # k/uL (0.0-0.5) 03/22/17 06:15 Reactive Lymphs % 1.2 % (0.0-5.0) 03/22/17 06:15 Reactive Lymphs # 0.1 # k/uL (0.0-0.8) 03/22/17 06:15 Sodium 134 mmol/L (136-145) L 03/22/17 06:15 Potassium 3.7 mmol/L (3.5-5.1) 03/22/17 06:15 Chloride 99 mmol/L (98-107) 03/22/17 06:15 Carbon Dioxide 30 mmol/L (22-30) 03/22/17 06:15 BUN 23 mg/dL (7-17) H 03/22/17 06:15 Creatinine 1.00 mg/dL (0.52-1.04) 03/22/17 06:15 Estimated Creat Clear 30 03/22/17 06:15 Est GFR ( Amer) > 60 (60-) 03/22/17 06:15 Est GFR (Non-Af Amer) > 60 (60-) 03/22/17 06:15 Glucose 118 mg/dL (74-106) H 03/22/17 06:15 Calcium 8.2 mg/dL (8.4-10.2) L 03/22/17 06:15 Total Bilirubin 0.2 mg/dL (0.2-1.3) 03/22/17 06:15 AST 14 U/L (15-46) L 03/22/17 06:15 ALT 25 U/L (13-69) 03/22/17 06:15 Alkaline Phosphatase 58 U/L (38-126) 03/22/17 06:15 Total Protein 5.8 g/dL (6.3-8.2) L 03/22/17 06:15 Albumin 2.9 g/dL (3.5-5.0) L 03/22/17 06:15 Assessment/Plan - Assessment/Plan (1) Gait disturbance Status: Acute Assessment: Improved. (2) A-fib Status: Chronic Qualifiers: Atrial fibrillation type: chronic Qualified Code(s): I48.2 - Chronic atrial fibrillation Assessment: stable (3) COPD (chronic obstructive pulmonary disease) Status: Chronic Assessment: stable (4) Chronic anticoagulation Status: Chronic Assessment: stable (5) Type 2 diabetes mellitus Status: Chronic Qualifiers: Diabetes mellitus complication status: without complication Diabetes mellitus alf insulin use: without intermission coordinator use Qualified Code(s): E11.9 - Type 2 diabetes mellitus without complications Assessment: stable
--- NOTE | 2017-03-26 07:55 | Discharge Summary ---
Discharge Summary - Discharge Sumary History of Present Illness: Patient is an 81-year-old white female who is been having some increasing shortness of breath dyspnea felt to be associated with her COPD. Patient has been hospitalized twice for short state at [facility] for this. Patient was seen by shactor helper and it was felt that she was continue to have some dyspnea was subsequently admitted to [facility] for further evaluation and treatment. Cardiology workup did not show any substantial cardiac problem. Patient was seen by a test desk supervisor. It was felt that the patient did have COPD. Because of her repetitive hospitalization patient has become week and was felt that she would benefit from further skilled therapy. Patient was subsequently transferred to this institution for further rehab services. Condition at Discharge: Stable Home Medications: Ambulatory Orders Medication Instructions Recorded Potassium Chloride [Klor-Con M10] 10 meq PO DAILY 10/18/16 Apixaban [Eliquis] 5 mg PO BID #180 tablet 02/28/17 Budesonide/Formoterol Fumarate 2 puff IH BID #1 hfa.aer.ad 02/28/17 [Symbicort 80-4.5 Mcg Inhaler] Ipratropium/Albuterol Sulfate 3 ml NEB Q4 PRN #60 vial 02/28/17 [Duoneb] Prednisone 10 mg PO DIRECTED #13 tablet 03/07/17 Albuterol Sulfate [ProAir 1 puff IH Q4-6 PRN 03/19/17 RespiClick] Fluticasone/Salmeterol [Advair 1 puff IH BID PRN 03/19/17 250-50 Diskus] Metoprolol Tartrate [Lopressor] 25 mg PO BID 03/19/17 Consultations this Visit: None Procedures this Visit: None Allergies/Adverse Reactions: Allergies Allergy/AdvReac Type Severity Reaction Status Date / Time pravastatin Allergy Verified 03/19/17 16:39 Patient Problems: Current Active Problems Problem Status Onset Gait disturbance Acute Discharge Summary: Patient was admitted and started on physical and occupational therapy. Patient participated well with the therapy and did show significant improvement in her ability to ambulate in the stability of her gait. Patient COPD/dyspnea improved during her skilled the stay. At the time of dismissal patient was using oxygen at night. Patient still complained of some dyspnea with ambulation. Patient atrial fibrillation remains stable. Patient anticoagulation therapy remains stable without any bleeding abnormalities. 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 Patient was subsequently discharged in stable condition to [facility] for further alf care. - Final Diagnosis (1) Gait disturbance Problems: improved (2) Shortness of breath Problems: improved (3) A-fib Problems: stable (4) COPD (chronic obstructive pulmonary disease) Problems: stable (5) Chronic anticoagulation Problems: stable
[2017-03-26] MEDS: POTASSIUM CHLORIDE 10 MEQ TABLET.ER PO SCH (09:03)
[2017-03-26] MEDS: FUROSEMIDE 40 MG TABLET PO SCH (09:03)
[2017-03-26] MEDS: predniSONE 1 MG TABLET PO SCH (09:03)
[2017-03-26] MEDS: METOPROLOL TARTRATE 25 MG TABLET PO SCH ×2 (09:03→20:52)
[2017-03-26] MEDS: APIXABAN 2.5 MG TABLET PO SCH ×2 (09:03→20:52)
[2017-03-26] MEDS: SIMVASTATIN 40 MG TABLET PO SCH (20:51)
[2017-03-27] MEDS: predniSONE 1 MG TABLET PO SCH (08:12)
[2017-03-27] MEDS: POTASSIUM CHLORIDE 10 MEQ TABLET.ER PO SCH (08:13)
[2017-03-27] MEDS: APIXABAN 2.5 MG TABLET PO SCH (08:13)
[2017-03-27] MEDS: METOPROLOL TARTRATE 25 MG TABLET PO SCH (08:13)
[2017-03-27] MEDS: FUROSEMIDE 40 MG TABLET PO SCH (08:13)
[2017-03-27 09:26] VITALS: BP 92/47
== END 2017-03-27 10:30 | disposition short-term general hospital (02) | DRG 92 ==
LOC: SOUTH 16:30
PROVIDERS: ADMIT Family Medicine; ATTEND Family Medicine
DX: R26.9 Unspecified abnormalities of gait and mobility (principal); J44.1 Chronic obstructive pulmonary disease with (acute) exacerbation; I48.2 Chronic atrial fibrillation; E11.9 Type 2 diabetes mellitus without complications; Z79.01 Long term (current) use of anticoagulants
CPT/HCPCS: 36415; 80053; 85025; J7512

== ENCOUNTER 2017-03-27 10:30 | Inpatient (IN) | payer MEDICARE, OTHER ==
[2017-03-27 09:26] VITALS: BP 92/47
== END 2017-04-07 13:40 | disposition home or self-care (01) | DRG 948 ==
LOC: UNDOADMIN 10:30 → ICF 10:30
PROVIDERS: ADMIT Family Medicine; ATTEND Family Medicine
DX: R53.1 Weakness (principal); J44.1 Chronic obstructive pulmonary disease with (acute) exacerbation; I48.2 Chronic atrial fibrillation; E11.9 Type 2 diabetes mellitus without complications; Z79.01 Long term (current) use of anticoagulants

== ENCOUNTER 2017-06-01 14:20 | Inpatient (IN) | payer MEDICARE, OTHER ==
[2017-06-01] MEDS ORDERED: IPRATROPIUM/ALBUTEROL SULFATE 3 ML AMPUL.NEB NEB PRN (16:10)
[2017-06-01] MEDS ORDERED: ACETAMINOPHEN 325 MG TABLET PO PRN (16:18)
[2017-06-01] MEDS: ATORVASTATIN CALCIUM 80 MG TABLET PO SCH ×2 (17:09→20:47)
[2017-06-01] MEDS: APIXABAN 2.5 MG TABLET PO SCH ×2 (17:09→20:49)
[2017-06-01 19:01] VITALS: BMI 28.9
[2017-06-01] MEDS: METOPROLOL TARTRATE 50 MG TABLET PO SCH (20:48)
[2017-06-01] MEDS ORDERED: FLUTICASONE/SALMETEROL 250-50 INHALER IH SCH (21:00)
--- NOTE | 2017-06-01 21:37 | History and Physical Report ---
History of Present Illnes - History of Present Illness Reason for Visit: gait disturbance, weakness History of Present Illness: Patient is an 81-year-old white female who was recently found to be markedly anemic with a hemoglobin of 6.2. Patient was initially felt to have an iron deficiency anemia related to blood loss. Subsequent colonoscopy was done and patient was found to have a colonic mass in the ascending colon. Patient recently underwent resection of the colonic mass. Patient did not have any intraoperative or postoperative complications. Patient did have a previous colonoscopy in May 2014 with removal of nonmalignant polyps. Patient was subsequently transferred to this institution for further physical and occupational rehab services. Patient chronic medical problems during her hospitalization remain stable. These included hypertension, COPD, and DM. 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 Alcohol: Rare Drugs: None Lives: Alone Domestic Violence: Negative - Health Maintenance Health Maintenance: Cholesterol, Influenza Vaccine, Pneumococcal Vaccine Influenza Vaccine: Current for this Influenza Season Pneumonia Vaccine: Yes Resuscitation Status: Resusciation Status Resuscitation Status Full Code - Unable to Obtain History Unable to Obtain: No Review of Systems - Review of Systems Constitutional: negative: Fever, Chills Eyes: negative: pain ENT: negative: Ear Pain, Ear Discharge, Nose Pain, Nose Discharge, Nose Congestion, Mouth Swelling Respiratory: negative: Cough, Dry, Shortness of Breath, Hemoptysis, SOB with Excertion, Pleuritic Pain, Sputum, Wheezing Cardiovascular: negative: Chest Pain, Palpitations, Orthopnea, Paroxysmal Noc. Dyspnea, Edema, Light Headedness Gastrointestinal: Diarrhea, Melena (mild). negative: Nausea, Vomiting, Abdominal Pain, Constipation, Hematochezia Genitourinary: negative: Dysuria, Frequency, Incontinence Musculoskeletal: negative: Neck Pain, Back Pain Skin: negative: Rash, Lesions Neurological: negative: Weakness, Numbness - Medications/Allergies Allergies/Adverse Reactions: Allergies Allergy/AdvReac Type Severity Reaction Status Date / Time pravastatin Allergy Verified 03/19/17 16:39 Home Medications: Home Medications Albuterol Sulfate [Proair Respiclick] 1 puff INH Q4-6 PRN 06/01/17 Diltiazem HCl [Diltiazem 24Hr Cd] 240 mg PO DAILY 06/01/17 Fluticasone/Salmeterol [Advair 250-50 Diskus] 1 puff INH BID 06/01/17 HYDROcodone /APAP 5/325 [[place] 5/325] 1 - 2 tab PO Q6 PRN 06/01/17 Current Inpatient Medications: Current Inpatient Medications Acetaminophen (Tylenol) 650 mg PO Q4H PRN PRN Reason: Fever >101 Albuterol/Ipratropium (Duoneb) 3 ml NEB Q4 PRN PRN Reason: dyspnia Atorvastatin Calcium (Lipitor) 40 mg PO [facility] Last Admin: 06/01/17 20:47 Dose: 40 mg Furosemide (Lasix) 40 mg PO DAILY [facility] Metoprolol Tartrate (Lopressor) 25 mg PO BID [facility] Last Admin: 06/01/17 20:48 Dose: 25 mg Miscellaneous (Chem Sticks) 1 each MC CHEMX2 [facility] Last Admin: 06/01/17 17:08 Dose: 1 each Fluticasone/Salmeterol (Advair 250-50 Diskus) each IH BID [facility] Exam - Exam Vital Signs: Vital Signs (72 hours) 06/01/17 06/01/17 14:45 20:39 Temperature 97.1 F L 97.2 F L Pulse Rate [ 91 H Apical] Pulse Rate [ 87 Left] Respiratory 22 19 Rate Blood Pressure 131/75 [Left Arm] Blood Pressure 119/69 [Right Arm] O2 Sat by Pulse 94 Oximetry General: Alert, Oriented to Person, Oriented to Place, Oriented to Time, Cooperative, No acute distress HEENT: Atraumatic, PERRLA, EOMI, Mouth Mucous membr. moist/[place], Nose Mucous membr. moist/[place], Abnormal Pupil, Dentition Normal Neck: Normal Range of Motion Lungs: Clear to auscultation, Normal air movement, Speaks full Sentences. No: Wheezes, Rales, Rhonchi Cardiovascular: Normal S1, Normal S2, No murmurs, Irregularly Irregular Abdomen: Normal bowel sounds, Soft, No tenderness, No hepatospenomegaly, No masses Integumentary: Normal, [place], Warm, Dry Extremities: No clubbing, No cyanosis, No edema, Normal pulses, No tenderness/ swelling Neurological: Normal gait, Normal speech, Strength Equal Bilat, Normal tone, Sensation intact, Cranial nerves 3-12 NL, Reflexes 2+ Psych/Mental Status: Mental status NL, Mood NL, Appropriate Affect, Intact Judgment Assessment/Plan - Assessment/Plan (1) Gait disturbance Status: Acute Current Visit: No Plan: Physical and occupational therapy consult will be done. (2) Colon cancer Status: Acute Current Visit: Yes Qualifiers: Colon location: ascending Qualified Code(s): C18.2 - Malignant neoplasm of ascending colon Assessment: s/p resection with no complications at this time Plan: F/O with Dr Zheng (3) Essential hypertension Status: Acute Current Visit: No Plan: Stable. We will continue with home medications and monitor (4) A-fib Status: Chronic Current Visit: No Qualifiers: Atrial fibrillation type: chronic Qualified Code(s): I48.2 - Chronic atrial fibrillation Plan: Patient is currently on anticoagulation therapy. Will continue that at this time. Rate appeared to be well controlled. (5) COPD (chronic obstructive pulmonary disease) Status: Chronic Current Visit: No Qualifiers: Emphysema type: panlobular Plan: Appeared to be stable at this time will continue with home medications. (6) Chronic anticoagulation Status: Chronic Current Visit: No (7) Type 2 diabetes mellitus Status: Chronic Current Visit: No Qualifiers: Diabetes mellitus complication status: without complication Diabetes mellitus terminologist insulin use: without snf use Qualified Code(s): E11.9 - Type 2 diabetes mellitus without complications Plan: Patient is currently off of her diabetic medications. Will monitor patient blood sugars. VTE Assessment - RISK FACTOR SCORE VTE RISK FACTOR SCORES: AGE OVER 60 YEARS, MAJOR SURGERY/ANESTHESIA TIME > 1 HOUR - RISK VTE MODERATE RISK: SCORE OF 2 (RISK PROXIMAL DVT 2-4%) PROPHYAXIS NEEDED ( patient is currently on anticoagulation therapy.)
[2017-06-02] MEDS: METOPROLOL TARTRATE 50 MG TABLET PO SCH ×2 (08:54→21:29)
[2017-06-02] MEDS: FUROSEMIDE 40 MG TABLET PO SCH (08:54)
[2017-06-02] MEDS: APIXABAN 2.5 MG TABLET PO SCH ×2 (08:54→21:29)
[2017-06-02] MEDS: ATORVASTATIN CALCIUM 80 MG TABLET PO SCH (21:29)
[2017-06-03] MEDS: APIXABAN 2.5 MG TABLET PO SCH ×2 (08:59→20:11)
[2017-06-03] MEDS: METOPROLOL TARTRATE 50 MG TABLET PO SCH ×2 (08:59→20:12)
[2017-06-03] MEDS: FUROSEMIDE 40 MG TABLET PO SCH (08:59)
[2017-06-03] MEDS: ATORVASTATIN CALCIUM 80 MG TABLET PO SCH (20:11)
[2017-06-04 06:32] LABS: BASOPHILS % 0.8 (0.0-1.5); MEAN CORPUSCULAR HEMOGLOBIN 27.2 pg (28.0-34.0); MONOCYTES % 4.8 % (0.0-11.0); NEUTROPHILS # 6.4 # k/uL (1.4-7.7)
[2017-06-04 07:25] LABS: eGFR (African) > 60; eGFR (Non-African) > 60
[2017-06-04] MEDS: FLUTICASONE/SALMETEROL 250-50 INHALER IH SCH ×2 (08:48→19:34)
[2017-06-04] MEDS: METOPROLOL TARTRATE 25 MG TABLET PO SCH (08:49)
[2017-06-04] MEDS: FUROSEMIDE 40 MG TABLET PO SCH (08:49)
[2017-06-04] MEDS: APIXABAN 2.5 MG TABLET PO SCH ×2 (08:49→19:19)
[2017-06-04] MEDS: DILTIAZEM HCL 120 MG CAP.ER.24H PO SCH (08:49)
[2017-06-04] MEDS: POTASSIUM CHLORIDE 10 MEQ TABLET.ER PO SCH (08:49)
[2017-06-04] MEDS: ATORVASTATIN CALCIUM 80 MG TABLET PO SCH (19:18)
[2017-06-05] MEDS: FLUTICASONE/SALMETEROL 250-50 INHALER IH SCH ×2 (08:50→19:46)
[2017-06-05] MEDS: FUROSEMIDE 40 MG TABLET PO SCH (08:51)
[2017-06-05] MEDS: APIXABAN 2.5 MG TABLET PO SCH ×2 (08:51→19:46)
[2017-06-05] MEDS: DILTIAZEM HCL 120 MG CAP.ER.24H PO SCH (08:51)
[2017-06-05] MEDS: POTASSIUM CHLORIDE 10 MEQ TABLET.ER PO SCH (08:51)
[2017-06-05] MEDS: METOPROLOL TARTRATE 25 MG TABLET PO SCH (08:51)
[2017-06-05] MEDS: ATORVASTATIN CALCIUM 80 MG TABLET PO SCH (19:46)
[2017-06-06] MEDS: FLUTICASONE/SALMETEROL 250-50 INHALER IH SCH ×2 (09:57→20:16)
[2017-06-06] MEDS: FUROSEMIDE 40 MG TABLET PO SCH (09:58)
[2017-06-06] MEDS: DILTIAZEM HCL 120 MG CAP.ER.24H PO SCH (09:58)
[2017-06-06] MEDS: POTASSIUM CHLORIDE 10 MEQ TABLET.ER PO SCH (09:58)
[2017-06-06] MEDS: APIXABAN 2.5 MG TABLET PO SCH ×2 (09:58→20:16)
[2017-06-06] MEDS: METOPROLOL TARTRATE 25 MG TABLET PO SCH (09:58)
[2017-06-06] MEDS: ATORVASTATIN CALCIUM 80 MG TABLET PO SCH (20:16)
[2017-06-07] MEDS: APIXABAN 2.5 MG TABLET PO SCH ×2 (08:50→21:17)
[2017-06-07] MEDS: POTASSIUM CHLORIDE 10 MEQ TABLET.ER PO SCH (08:51)
[2017-06-07] MEDS: DILTIAZEM HCL 120 MG CAP.ER.24H PO SCH (08:51)
[2017-06-07] MEDS: FLUTICASONE/SALMETEROL 250-50 INHALER IH SCH ×2 (08:51→21:19)
[2017-06-07] MEDS: METOPROLOL TARTRATE 25 MG TABLET PO SCH (08:51)
[2017-06-07] MEDS: FUROSEMIDE 40 MG TABLET PO SCH (08:51)
[2017-06-07] MEDS: ATORVASTATIN CALCIUM 80 MG TABLET PO SCH (21:17)
[2017-06-08] MEDS: FLUTICASONE/SALMETEROL 250-50 INHALER IH SCH ×2 (08:46→20:31)
[2017-06-08] MEDS: DILTIAZEM HCL 120 MG CAP.ER.24H PO SCH (08:46)
[2017-06-08] MEDS: APIXABAN 2.5 MG TABLET PO SCH ×2 (08:47→20:31)
[2017-06-08] MEDS: METOPROLOL TARTRATE 25 MG TABLET PO SCH (08:47)
[2017-06-08] MEDS: POTASSIUM CHLORIDE 10 MEQ TABLET.ER PO SCH (08:47)
[2017-06-08] MEDS: FUROSEMIDE 40 MG TABLET PO SCH (08:47)
[2017-06-08] MEDS: ATORVASTATIN CALCIUM 80 MG TABLET PO SCH (20:31)
[2017-06-09] MEDS: FLUTICASONE/SALMETEROL 250-50 INHALER IH SCH ×2 (08:30→21:58)
[2017-06-09] MEDS: POTASSIUM CHLORIDE 10 MEQ TABLET.ER PO SCH (08:31)
[2017-06-09] MEDS: APIXABAN 2.5 MG TABLET PO SCH ×2 (08:31→21:58)
[2017-06-09] MEDS: DILTIAZEM HCL 120 MG CAP.ER.24H PO SCH (08:31)
[2017-06-09] MEDS: METOPROLOL TARTRATE 25 MG TABLET PO SCH (08:32)
[2017-06-09] MEDS: FUROSEMIDE 40 MG TABLET PO SCH (08:32)
[2017-06-09] MEDS: ATORVASTATIN CALCIUM 80 MG TABLET PO SCH (21:58)
[2017-06-10] MEDS: POTASSIUM CHLORIDE 10 MEQ TABLET.ER PO SCH (08:45)
[2017-06-10] MEDS: FUROSEMIDE 40 MG TABLET PO SCH (08:45)
[2017-06-10] MEDS: METOPROLOL TARTRATE 25 MG TABLET PO SCH (08:45)
[2017-06-10] MEDS: DILTIAZEM HCL 120 MG CAP.ER.24H PO SCH (08:48)
[2017-06-10] MEDS: APIXABAN 2.5 MG TABLET PO SCH ×2 (08:49→20:16)
[2017-06-10] MEDS: FLUTICASONE/SALMETEROL 250-50 INHALER IH SCH ×2 (08:49→20:17)
[2017-06-10] MEDS: ATORVASTATIN CALCIUM 80 MG TABLET PO SCH (20:16)
--- NOTE | 2017-06-11 07:36 | Inpatient Progress Note ---
Subjective - Required Recertification Statement I anticipate X number of days because-include discharge plan: 7 days - Review of Systems Events since last encounter: Patient has been doing well. Patient did not voice any complaints at the time. Patient is been highly motivated to participate with physical and occupational therapy and does seem to be making some progress with her gait. Patient states her problems have been normal. Patient denies any hematochezia or melena. Appetite has been good. Cardiovascular: Denies: Chest Pain, Palpitations Gastrointestinal: Denies: Nausea, Vomiting, Abdominal Pain, Diarrhea, Constipation, Melena, Hematochezia Objective - Exam Vitals and I&O: Vital Signs Temp 98.0 F 06/10/17 21:00 Pulse 68 06/10/17 21:00 Resp 16 06/10/17 21:00 BP 112/71 06/10/17 21:00 Pulse Ox 90 L 06/10/17 21:00 Intake & Output 06/10/17 06/10/17 06/11/17 11:59 23:59 11:59 Intake Total 600 1430 360 Balance 600 1430 360 Weight 69.853 kg Intake: Oral 600 1430 360 Other: Voiding Method Toilet Toilet # Voids 4 General: Alert, Oriented to Person, Oriented to Place, Cooperative. No: Oriented to Time HEENT: Atraumatic Neck: Supple, No JVD Lungs: Clear to auscultation, Normal air movement, Speaks full Sentences. No: Wheezes, Rales, Rhonchi Cardiovascular: Normal S1, Normal S2, Irregularly Irregular Abdomen: Normal bowel sounds, Soft, No tenderness, No masses Skin: Normal, [place], Warm, Dry Psych/Mental Status: Mental status NL, Mood NL. No: Intact Judgment (gets confused at times) - Results Results: Laboratory Results WBC 8.40 K/ul (4.00-12.00) 06/04/17 06:20 RBC 4.59 M/ul (3.90-5.20) 06/04/17 06:20 Hgb 12.5 g/dL (12.0-16.0) 06/04/17 06:20 Hct 40.4 % (34.5-46.5) 06/04/17 06:20 MCV 88.0 fl (80.0-100.0) 06/04/17 06:20 MCH 27.2 pg (28.0-34.0) L 06/04/17 06:20 MCHC 30.9 g/dL (30.0-36.0) 06/04/17 06:20 RDW 19.7 % (11.3-14.3) H 06/04/17 06:20 Plt Count 273 K/mm3 (130-400) 06/04/17 06:20 Neut % (Auto) 77.1 % (39.0-79.0) 06/04/17 06:20 Lymph % (Auto) 13.4 % (16.0-50.0) L 06/04/17 06:20 [place] % (Auto) 4.8 % (0.0-11.0) 06/04/17 06:20 Eos % (Auto) 3.0 % (0.0-6.8) 06/04/17 06:20 Baso % (Auto) 0.8 (0.0-1.5) 06/04/17 06:20 Neut # (Auto) 6.4 # k/uL (1.4-7.7) 06/04/17 06:20 Lymph # (Auto) 1.1 # k/uL (0.6-4.0) 06/04/17 06:20 [place] # (Auto) 0.4 # k/uL (0.0-0.9) 06/04/17 06:20 Eos # (Auto) 0.2 # k/uL (0.0-0.6) 06/04/17 06:20 Baso # (Auto) 0.1 # k/uL (0.0-0.5) 06/04/17 06:20 Reactive Lymphs % 1.0 % (0.0-5.0) 06/04/17 06:20 Reactive Lymphs # 0.1 # k/uL (0.0-0.8) 06/04/17 06:20 Sodium 139 mmol/L (136-145) 06/04/17 06:20 Potassium 4.1 mmol/L (3.5-5.1) 06/04/17 06:20 Chloride 97 mmol/L (98-107) L 06/04/17 06:20 Carbon Dioxide 30 mmol/L (22-30) 06/04/17 06:20 BUN 12 mg/dL (7-17) 06/04/17 06:20 Creatinine 0.80 mg/dL (0.52-1.04) 06/04/17 06:20 Estimated Creat Clear 72 06/04/17 06:20 Est GFR ( Amer) > 60 (60-) 06/04/17 06:20 Est GFR (Non-Af Amer) > 60 (60-) 06/04/17 06:20 Glucose 107 mg/dL (74-106) H 06/04/17 06:20 Calcium 9.0 mg/dL (8.4-10.2) 06/04/17 06:20 Total Bilirubin 0.8 mg/dL (0.2-1.3) 06/04/17 06:20 AST 21 U/L (15-46) 06/04/17 06:20 ALT 23 U/L (13-69) 06/04/17 06:20 Alkaline Phosphatase 75 U/L (38-126) 06/04/17 06:20 Total Protein 5.8 g/dL (6.3-8.2) L 06/04/17 06:20 Albumin 3.1 g/dL (3.5-5.0) L 06/04/17 06:20 Assessment/Plan - Assessment/Plan (1) Gait disturbance Status: Acute Current Visit: No Assessment: improving (2) Colon cancer Status: Acute Current Visit: Yes Qualifiers: Colon location: ascending Qualified Code(s): C18.2 - Malignant neoplasm of ascending colon Assessment: stable (3) Essential hypertension Status: Acute Current Visit: No Assessment: stable (4) A-fib Status: Chronic Current Visit: No Qualifiers: Atrial fibrillation type: chronic Qualified Code(s): I48.2 - Chronic atrial fibrillation (5) COPD (chronic obstructive pulmonary disease) Status: Chronic Current Visit: No Qualifiers: Emphysema type: panlobular Assessment: stable (6) Chronic anticoagulation Status: Chronic Current Visit: No (7) Type 2 diabetes mellitus Status: Chronic Current Visit: No Qualifiers: Diabetes mellitus complication status: without complication Diabetes mellitus counter weigher insulin use: without senior living use Qualified Code(s): E11.9 - Type 2 diabetes mellitus without complications Assessment: stable off medications
--- NOTE | 2017-06-11 07:42 | Discharge Summary ---
Discharge Summary - Discharge Sumary History of Present Illness: Patient is an 81-year-old white female who was recently found to be markedly anemic with a hemoglobin of 6.2. Patient was initially felt to have an iron deficiency anemia related to blood loss. Subsequent colonoscopy was done and patient was found to have a colonic mass in the ascending colon. Patient recently underwent resection of the colonic mass. Patient did not have any intraoperative or postoperative complications. Patient did have a previous colonoscopy in May 2014 with removal of nonmalignant polyps. Patient was subsequently transferred to this institution for further physical and occupational rehab services. Patient chronic medical problems during her hospitalization remain stable. These included hypertension, COPD, and DM. Condition at Discharge: Stable Home Medications: Ambulatory Orders Medication Instructions Recorded Albuterol Sulfate [Proair 1 puff INH Q4-6 PRN 06/01/17 Respiclick] Diltiazem HCl [Diltiazem 24Hr Cd] 240 mg PO DAILY 06/01/17 Fluticasone/Salmeterol [Advair 1 puff INH BID 06/01/17 250-50 Diskus] Acetaminophen [Tylenol] 650 mg PO Q4H PRN tablet 06/11/17 Consultations this Visit: None Procedures this Visit: None Allergies/Adverse Reactions: Allergies Allergy/AdvReac Type Severity Reaction Status Date / Time pravastatin Allergy Verified 03/19/17 16:39 Patient Problems: Current Active Problems Problem Status Onset Colon cancer Acute Discharge Summary: Patient did well during her skilled therapy. Patient did not have very much pain related to her personal colectomy. Patient dominants were normal. Patient denied any medicated [place] her hematemesis. Appetite remains good. Patient did participate with physical and occupational therapy well. At the time to discharge patient was ambulating and transferring well. It was felt that she could be followed with home health. Patient other chronic medical problems remain stable during the skilled course. - Final Diagnosis (1) Gait disturbance Problems: improved (2) Colon cancer Problems: stable (3) Essential hypertension Problems: stable on home meds (4) A-fib Problems: stable on anticoagulation therapy (5) COPD (chronic obstructive pulmonary disease) Problems: stable o home meds (6) Chronic anticoagulation Problems: stable (7) Type 2 diabetes mellitus Problems: diet controlled, stable
--- NOTE | 2017-06-11 07:42 | Inpatient Progress Note ---
Subjective - Required Recertification Statement I anticipate X number of days because-include discharge plan: 4 days - Review of Systems Events since last encounter: Patient has been doing well. Patient is ambulating fairly well at this time. Patient did have a home visit with physical and occupational therapy. Patient is not voiding the complaint. Patient balance have been normal. Patient is not having any pain. Objective - Exam Vitals and I&O: Vital Signs Temp 98.0 F 06/10/17 21:00 Pulse 68 06/10/17 21:00 Resp 16 06/10/17 21:00 BP 112/71 06/10/17 21:00 Pulse Ox 90 L 06/10/17 21:00 Intake & Output 06/10/17 06/10/17 06/11/17 11:59 23:59 11:59 Intake Total 600 1430 360 Balance 600 1430 360 Weight 69.853 kg Intake: Oral 600 1430 360 Other: Voiding Method Toilet Toilet # Voids 4 - Results Results: Laboratory Results WBC 8.40 K/ul (4.00-12.00) 06/04/17 06:20 RBC 4.59 M/ul (3.90-5.20) 06/04/17 06:20 Hgb 12.5 g/dL (12.0-16.0) 06/04/17 06:20 Hct 40.4 % (34.5-46.5) 06/04/17 06:20 MCV 88.0 fl (80.0-100.0) 06/04/17 06:20 MCH 27.2 pg (28.0-34.0) L 06/04/17 06:20 MCHC 30.9 g/dL (30.0-36.0) 06/04/17 06:20 RDW 19.7 % (11.3-14.3) H 06/04/17 06:20 Plt Count 273 K/mm3 (130-400) 06/04/17 06:20 Neut % (Auto) 77.1 % (39.0-79.0) 06/04/17 06:20 Lymph % (Auto) 13.4 % (16.0-50.0) L 06/04/17 06:20 [place] % (Auto) 4.8 % (0.0-11.0) 06/04/17 06:20 Eos % (Auto) 3.0 % (0.0-6.8) 06/04/17 06:20 Baso % (Auto) 0.8 (0.0-1.5) 06/04/17 06:20 Neut # (Auto) 6.4 # k/uL (1.4-7.7) 06/04/17 06:20 Lymph # (Auto) 1.1 # k/uL (0.6-4.0) 06/04/17 06:20 [place] # (Auto) 0.4 # k/uL (0.0-0.9) 06/04/17 06:20 Eos # (Auto) 0.2 # k/uL (0.0-0.6) 06/04/17 06:20 Baso # (Auto) 0.1 # k/uL (0.0-0.5) 06/04/17 06:20 Reactive Lymphs % 1.0 % (0.0-5.0) 06/04/17 06:20 Reactive Lymphs # 0.1 # k/uL (0.0-0.8) 06/04/17 06:20 Sodium 139 mmol/L (136-145) 06/04/17 06:20 Potassium 4.1 mmol/L (3.5-5.1) 06/04/17 06:20 Chloride 97 mmol/L (98-107) L 06/04/17 06:20 Carbon Dioxide 30 mmol/L (22-30) 06/04/17 06:20 BUN 12 mg/dL (7-17) 06/04/17 06:20 Creatinine 0.80 mg/dL (0.52-1.04) 06/04/17 06:20 Estimated Creat Clear 72 06/04/17 06:20 Est GFR ( Amer) > 60 (60-) 06/04/17 06:20 Est GFR (Non-Af Amer) > 60 (60-) 06/04/17 06:20 Glucose 107 mg/dL (74-106) H 06/04/17 06:20 Calcium 9.0 mg/dL (8.4-10.2) 06/04/17 06:20 Total Bilirubin 0.8 mg/dL (0.2-1.3) 02/19/18 06:20 AST 21 U/L (15-46) 06/04/17 06:20 ALT 23 U/L (13-69) 06/04/17 06:20 Alkaline Phosphatase 75 U/L (38-126) 06/04/17 06:20 Total Protein 5.8 g/dL (6.3-8.2) L 06/04/17 06:20 Albumin 3.1 g/dL (3.5-5.0) L 06/04/17 06:20 Assessment/Plan - Assessment/Plan (1) Gait disturbance Status: Acute Current Visit: No Assessment: Improved. (2) Colon cancer Status: Acute Current Visit: Yes Qualifiers: Colon location: ascending Qualified Code(s): C18.2 - Malignant neoplasm of ascending colon Assessment: Stable. (3) Essential hypertension Status: Acute Current Visit: No (4) A-fib Status: Chronic Current Visit: No Qualifiers: Atrial fibrillation type: chronic Qualified Code(s): I48.2 - Chronic atrial fibrillation Assessment: Stable on anticoagulation therapy. (5) COPD (chronic obstructive pulmonary disease) Status: Chronic Current Visit: No Qualifiers: Emphysema type: panlobular Assessment: Stable. (6) Chronic anticoagulation Status: Chronic Current Visit: No Assessment: Stable. (7) Type 2 diabetes mellitus Status: Chronic Current Visit: No Qualifiers: Diabetes mellitus complication status: without complication Diabetes mellitus correction insulin use: without middle or intermediate school principal use Qualified Code(s): E11.9 - Type 2 diabetes mellitus without complications Assessment: Blood sugars appear to be stable also medication.
[2017-06-11] MEDS: DILTIAZEM HCL 120 MG CAP.ER.24H PO SCH (09:23)
[2017-06-11] MEDS: FLUTICASONE/SALMETEROL 250-50 INHALER IH SCH (09:23)
[2017-06-11] MEDS: APIXABAN 2.5 MG TABLET PO SCH (09:24)
[2017-06-11] MEDS: POTASSIUM CHLORIDE 10 MEQ TABLET.ER PO SCH (09:24)
[2017-06-11] MEDS: METOPROLOL TARTRATE 25 MG TABLET PO SCH (09:24)
[2017-06-11] MEDS: FUROSEMIDE 40 MG TABLET PO SCH (09:24)
[2017-06-11 12:21] VITALS: BP 95/86
== END 2017-06-11 12:00 | disposition home or self-care (01) | DRG 948 ==
LOC: SOUTH 14:20
PROVIDERS: ADMIT Family Medicine; ATTEND Family Medicine
DX: R53.1 Weakness (principal); I10 Essential (primary) hypertension; J44.1 Chronic obstructive pulmonary disease with (acute) exacerbation; E11.9 Type 2 diabetes mellitus without complications; I48.2 Chronic atrial fibrillation; E78.5 Hyperlipidemia, unspecified; C18.2 Malignant neoplasm of ascending colon; Z79.01 Long term (current) use of anticoagulants
CPT/HCPCS: 36415; 80053; 85025

== ENCOUNTER 2017-12-15 09:54 | Inpatient (IN) | payer MEDICARE, OTHER ==
--- NOTE | 2017-12-15 10:14 | ED Physician Documentation ---
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 noticed) - ROS CONST: no problems CVS/RESP: none MS/SKIN/LYMPH: leg swelling NEURO/PSYCH: denies: headache, fainting, dizziness - PAST HX Past History: A-Fib, CHF, hypertension Other History: diabetes Type 2 Immunizations: UTD Allergies/Adverse Reactions: Allergies Allergy/AdvReac Type Severity Reaction Status Date / Time pravastatin Allergy Verified 12/15/17 10:10 Home Medications: Ambulatory Orders Medication Instructions Recorded Albuterol Sulfate [Proair 1 puff INH Q4-6 PRN 06/01/17 Respiclick] Diltiazem HCl [Diltiazem 24Hr Cd] 240 mg PO DAILY 06/01/17 Fluticasone/Salmeterol [Advair 1 puff INH BID 06/01/17 250-50 Diskus] - SOCIAL HX Smoking History: quit greater than 1 year Alcohol Use: none Drug Use: none - FAMILY HX Family History: No - VITAL SIGNS Vital Signs: Vital Signs Temp Pulse Resp BP Pulse Ox 95/86 06/11/17 09:02 - REVIEWED ASSESSMENTS Nursing Assessment Reviewed: Yes Vitals Reviewed: Yes Progress - Progress Progress: 1015: she is doing well. She is having frequent urination she states she took a "double dose of lasix" DG 1130: She is resting in bed. She denies any complaints DG ED Results Lab/Radiology - Radiology Radiology Impressions: Chest two views History: Shortness of breath Findings: Cardiomegaly, pulmonary vascular congestion, mild pulmonary edema, small pleural effusions, and mitral annulus calcification are observed. Obesity is noted. The lungs are well expanded. Impression: Congestive heart failure and obesity. Electronically signed on Dec 15, 2017 11:23:48 AM CDT by: Zachery Man General Adult Physical Exam - PHYSICAL EXAM GENERAL APPEARANCE: no distress EENT: eye inspection normal, ENT inspection normal, pharynx normal NECK: normal inspection RESPIRATORY: wheezes (expiratory ), other (mild resp distress with movement ) CVS: reg rate & rhythm, no murmur, other (irregular ) ABDOMEN: soft, normal bowel sounds, no distension, non-tender BACK: normal inspection SKIN: warm/dry, normal color EXTREMITIES: non-tender, edema (2+ pulses + sensation + ) NEURO: oriented X3, CN's nml as tested, motor nml, sensation nml, mood/affect nml Discharge Clincal Impression: CHF (congestive heart failure) Qualifiers: Heart failure type: systolic Heart failure chronicity: acute on chronic Qualified Code(s): I50.23 - Acute on chronic systolic (congestive) heart failure Comments: 1230: Discussed case with Dr Ssoa - he is agreeable to admission. Family and pt are agreeable to admission DG Condition: Good Decision to Admit: [id number] Date of Decison to Admit: 12/15/17 Decision Time: 12:30
[2017-12-15 10:41] LABS: BASOPHILS % 0.5 (0.0-1.5); EOSINOPHILS % 0.8 % (0.0-6.8); MEAN CORPUSCULAR VOLUME 92.5 fl (80.0-100.0); MONOCYTES % 2.7 % (0.0-11.0); NEUTROPHILS # 6.7 # k/uL (1.4-7.7)
[2017-12-15 10:43] LABS: eGFR (Non-African) > 60
--- NOTE | 2017-12-15 12:52 | Diagnostic Imaging Report ---
DANILO JIMÉNEZ [facility] [id number] [facility].[address] [address] Report Submission Date: Dec 15, 2017 11:23:48 AM CDT Patient Study Name: MIRANDA HENDRICKSON Date: Dec 15, 2017 10:47:54 AM CDT Modality Type: DX Gender: F Description: CHEST : 37 Institution: [facility] Physician: DANILO JIMÉNEZ Chest two views History: Shortness of breath Findings: Cardiomegaly, pulmonary vascular congestion, mild pulmonary edema, small pleural effusions, and mitral annulus calcification are observed. Obesity is noted. The lungs are well expanded. Impression: Congestive heart failure and obesity. Electronically signed on Dec 15, 2017 11:23:48 AM CDT by: Zachery MCKENNA
[2017-12-15] MEDS ORDERED: IPRATROPIUM/ALBUTEROL SULFATE 3 ML AMPUL.NEB NEB PRN (15:03)
--- NOTE | 2017-12-15 15:23 | History and Physical Report ---
History of Present Illnes - History of Present Illness Reason for Visit: Congestive heart failure History of Present Illness: This is an 82 year old patient of Dr. Leone with a history of cardiomyopathy and CHF who presents with a one day history of increased SOB/orthopnea and weight gain and leg swelling. 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 She denies any chest pain currently or since onset of dyspnea, and her troponin is negative.Her chest XR shows failure and her BNP is 2315. She is admitted for treatment of acute congestive heart failure. 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 negative: Fever, Chills Eyes: negative: pain ENT: negative: Ear Pain Respiratory: Cough, Shortness of Breath, SOB with Excertion Cardiovascular: Orthopnea. negative: Chest Pain Gastrointestinal: negative: Nausea, Vomiting Genitourinary: negative: Dysuria, Frequency Musculoskeletal: negative: Neck Pain Skin: negative: Rash Neurological: Weakness - Medications/Allergies Allergies/Adverse Reactions: Allergies Allergy/AdvReac Type Severity Reaction Status Date / Time pravastatin Allergy Verified 12/15/17 10:10 Current Inpatient Medications: Current Inpatient Medications Albuterol/Ipratropium (Duoneb) 3 ml NEB Q4 PRN PRN Reason: Wheezing Diltiazem HCl (Cardizem Cd) 240 mg PO DAILY [facility] Enoxaparin Sodium (Lovenox) 30 mg SQ QD [facility] Stop: 12/28/17 16:01 Furosemide (Lasix) 40 mg IVP 714 [facility] Memantine (Namenda) 5 mg PO HS [facility] Fluticasone/Salmeterol (Advair 250-50 Diskus) 1 each IH BID GIORGIO Exam - Exam Vital Signs: Vital Signs (72 hours) 12/15/17 12/15/17 12/15/17 10:12 13:41 13:58 Temperature 98.7 F 98.7 F 96.9 F L Pulse Rate [ 80 60 74 Pulse ox] Respiratory 28 H 19 18 Rate Blood Pressure 126/70 129/70 120/77 [Right Arm] O2 Sat by Pulse 85 L 95 92 Oximetry General: Alert, Oriented to Person, Oriented to Place, Oriented to Time, Cooperative, Mild distress HEENT: Atraumatic, PERRLA Neck: No: Stridor, Rigidity Lungs: Wheezes (with crackles at the bases). No: Respiratory Distress Cardiovascular: Regular rate Murmur: Systolic Murmur Murmur Location: Left Sternal Boarder Heart Murmur Grade: II Abdomen: Normal bowel sounds, Soft, No tenderness Genitourinary: No: Other Male Genitourinary: No: Other Female Genitourinary: No: Other Integumentary: Normal, [place], Warm Extremities: Other (Bunion deformities, dystrophic nails bilateral feet, palpable DP/PT pulses) Neurological: Normal speech Psych/Mental Status: Mental status NL - Laboratory Results Laboratory Results: Laboratory Results 12/15/17 12/15/17 12/15/17 10:31 10:31 10:31 WBC 7.80 RBC 4.85 Hgb 14.6 Hct 44.9 MCV 92.5 MCH 30.0 MCHC 32.5 RDW 13.7 Plt Count 227 Neut % (Auto) 86.0 H Lymph % (Auto) 9.1 L [place] % (Auto) 2.7 Eos % (Auto) 0.8 Baso % (Auto) 0.5 Neut # (Auto) 6.7 Lymph # (Auto) 0.7 [place] # (Auto) 0.2 Eos # (Auto) 0.1 Baso # (Auto) 0.0 Reactive Lymphs % Pending Reactive Lymphs # Pending PT 11.0 INR 1.05 D-Dimer Sodium 134 L Potassium 4.0 Chloride 97 L Carbon Dioxide 31 H BUN 15 Creatinine 0.70 Estimated Creat Clear 79 Est GFR ( Amer) > 60 Est GFR (Non-Af Amer) > 60 Glucose 143 H Calcium 8.4 Total Bilirubin 1.0 AST 17 ALT 19 Alkaline Phosphatase 96 Creatine Kinase 21 L Troponin I NT-Pro-B Natriuret Pep Total Protein 6.7 Albumin 3.8 12/15/17 12/15/17 10:31 11:06 WBC RBC Hgb Hct MCV MCH MCHC RDW Plt Count Neut % (Auto) Lymph % (Auto) [place] % (Auto) Eos % (Auto) Baso % (Auto) Neut # (Auto) Lymph # (Auto) [place] # (Auto) Eos # (Auto) Baso # (Auto) Reactive Lymphs % Reactive Lymphs # PT INR D-Dimer 715 H Sodium Potassium Chloride Carbon Dioxide BUN Creatinine Estimated Creat Clear Est GFR ( Amer) Est GFR (Non-Af Amer) Glucose Calcium Total Bilirubin AST ALT Alkaline Phosphatase Creatine Kinase Troponin I < 0.03 L NT-Pro-B Natriuret Pep 2315.0 H Total Protein Albumin Assessment/Plan - Assessment/Plan (1) CHF (congestive heart failure) Status: Acute Current Visit: No Qualifiers: Heart failure type: systolic Heart failure chronicity: acute on chronic Qualified Code(s): I50.23 - Acute on chronic systolic (congestive) heart failure Assessment: Start IV lasix Monitor daily weights (2) Essential hypertension Status: Acute Current Visit: No Assessment: Currently well controlled (3) Shortness of breath Status: Acute Current Visit: No Assessment: Due to both COPD and CHF (4) Paroxysmal atrial fibrillation Status: Chronic Current Visit: No Assessment: Currently in NSR Plan: Continue Eliquis 5 mg po BID (I called [facility] and confirmed that she is still on this medication) Continue diltiazem VTE Assessment - RISK FACTOR SCORE VTE RISK FACTOR SCORES: AGE OVER 60 YEARS, ANTICIPATED BED CONFINEMENT OR IMMOBILIZATION > 24 HOURS - RISK VTE MODERATE RISK: SCORE OF 2 (RISK PROXIMAL DVT 2-4%) PROPHYAXIS NEEDED (Already anticoagulated on Eliquis)
[2017-12-15] MEDS: ENOXAPARIN SODIUM 30 MG/0.3 ML DISP.SYRIN SQ SCH (17:29)
[2017-12-15 18:38] VITALS: BMI 29.9
[2017-12-15] MEDS: FLUTICASONE/SALMETEROL 250-50 INHALER IH SCH (20:26)
[2017-12-15] MEDS: APIXABAN 2.5 MG TABLET PO SCH (20:27)
[2017-12-15] MEDS: MEMANTINE HCL 10 MG TABLET PO SCH (20:28)
[2017-12-16] MEDS: FUROSEMIDE 40 MG/4 ML VIAL IVP SCH ×2 (06:03→13:31)
[2017-12-16 06:53] LABS: eGFR (Non-African) > 60
[2017-12-16 06:58] LABS: APPEARANCE,URINE CLEAR (CLEAR); COLOR,URINE YELLOW (YELLOW); OCCULT BLOOD,URINE TRACE (NEGATIVE); UROBILINOGEN URINE 0.2 Eu (0.2-1.0)
[2017-12-16] MEDS: FLUTICASONE/SALMETEROL 250-50 INHALER IH SCH ×2 (09:09→20:37)
[2017-12-16] MEDS: DILTIAZEM HCL 120 MG CAP.ER.24H PO SCH (09:10)
[2017-12-16] MEDS: APIXABAN 2.5 MG TABLET PO SCH ×2 (09:10→20:36)
--- NOTE | 2017-12-16 12:54 | Inpatient Progress Note ---
Subjective - Required Recertification Statement I anticipate X number of days because-include discharge plan: 2 - Review of Systems Subjective: Deana is feeling better today. She is breathing with less effort, and her pedal edema is decreased. Her family is interested in her going to [facility] on discharge from [facility] if possible. General: Denies: Chills HEENT: Denies: Head Aches Pulmonary: Dyspnea (improved) Cardiovascular: Denies: Chest Pain Gastrointestinal: Denies: Nausea, Vomiting Genitourinary: Denies: Dysuria Musculoskeletal: Denies: Neck Pain Neurological: Denies: Weakness, Confusion Objective - Exam Vitals and I&O: Vital Signs Temp 96.7 F L 12/16/17 10:00 Pulse 88 12/16/17 10:00 Resp 20 12/16/17 10:00 BP 101/57 12/16/17 10:00 Pulse Ox 91 L 12/16/17 10:09 Intake & Output 12/15/17 12/16/17 12/16/17 23:59 11:59 23:59 Intake Total 500 200 Balance 500 200 Weight 76.657 kg Intake: IV 0 0 Left Wrist 0 0 Oral 500 200 Other: Voiding Method Toilet Toilet # Voids 8 3 General: Alert, Oriented to Person, Oriented to Place, Oriented to Time, Cooperative HEENT: Atraumatic, PERRLA Neck: Supple, No JVD Lungs: Rhonchi (decreaed from last exam) Cardiovascular: Regular rate Abdomen: Normal bowel sounds, Soft, No tenderness Extremities: No clubbing, Other (edema is improved) Skin: Normal, [place], Dry Neurological: Normal speech Psych/Mental Status: Mental status NL - Results Results: Laboratory Results WBC 7.80 K/ul (4.00-12.00) 12/15/17 10:31 RBC 4.85 M/ul (3.90-5.20) 12/15/17 10:31 Hgb 14.6 g/dL (12.0-16.0) 12/15/17 10:31 Hct 44.9 % (34.5-46.5) 12/15/17 10:31 MCV 92.5 fl (80.0-100.0) 12/15/17 10:31 MCH 30.0 pg (28.0-34.0) 12/15/17 10:31 MCHC 32.5 g/dL (30.0-36.0) 12/15/17 10:31 RDW 13.7 % (11.3-14.3) 12/15/17 10:31 Plt Count 227 K/mm3 (130-400) 12/15/17 10:31 Neut % (Auto) 86.0 % (39.0-79.0) H 12/15/17 10:31 Lymph % (Auto) 9.1 % (16.0-50.0) L 12/15/17 10:31 [place] % (Auto) 2.7 % (0.0-11.0) 12/15/17 10:31 Eos % (Auto) 0.8 % (0.0-6.8) 12/15/17 10:31 Baso % (Auto) 0.5 (0.0-1.5) 12/15/17 10:31 Neut # (Auto) 6.7 # k/uL (1.4-7.7) 12/15/17 10:31 Lymph # (Auto) 0.7 # k/uL (0.6-4.0) 12/15/17 10:31 [place] # (Auto) 0.2 # k/uL (0.0-0.9) 12/15/17 10:31 Eos # (Auto) 0.1 # k/uL (0.0-0.6) 12/15/17 10:31 Baso # (Auto) 0.0 # k/uL (0.0-0.5) 12/15/17 10:31 PT 11.0 Seconds (9.4-11.6) 12/15/17 10:31 INR 1.05 (0.9-1.2) 12/15/17 10:31 D-Dimer 715 ng/mL (6.0-682) H 12/15/17 10:31 Sodium 135 mmol/L (136-145) L 12/16/17 05:30 Potassium 3.4 mmol/L (3.5-5.1) L 12/16/17 05:30 Chloride 96 mmol/L (98-107) L 12/16/17 05:30 Carbon Dioxide 35 mmol/L (22-30) H 12/16/17 05:30 BUN 15 mg/dL (7-17) 12/16/17 05:30 Creatinine 0.80 mg/dL (0.52-1.04) 12/16/17 05:30 Estimated Creat Clear 78 12/16/17 05:30 Est GFR ( Amer) > 60 (60-) 12/16/17 05:30 Est GFR (Non-Af Amer) > 60 (60-) 12/16/17 05:30 Glucose 95 mg/dL (74-106) 12/16/17 05:30 Calcium 8.2 mg/dL (8.4-10.2) L 12/16/17 05:30 Total Bilirubin 0.9 mg/dL (0.2-1.3) 12/16/17 05:30 AST 31 U/L (15-46) 12/16/17 05:30 ALT 22 U/L (13-69) 12/16/17 05:30 Alkaline Phosphatase 91 U/L (38-126) 12/16/17 05:30 Creatine Kinase 21 U/L (30-135) L 12/15/17 10:31 Troponin I < 0.03 ng/mL (0.03-0.06) L 12/15/17 11:06 NT-Pro-B Natriuret Pep 2315.0 pg/mL (15.0-450.0) H 12/15/17 10:31 Total Protein 5.8 g/dL (6.3-8.2) L 12/16/17 05:30 Albumin 3.2 g/dL (3.5-5.0) L 12/16/17 05:30 Urine Color Yellow (YELLOW) 12/15/17 10:10 Urine Appearance Clear (CLEAR) 12/15/17 10:10 Urine pH 7.0 (5.0 - 8.0) 12/15/17 10:10 Ur Specific [place] 1.015 (1.010-1.030) 12/15/17 10:10 Urine Protein Negative mg/dL (NEGATIVE) 12/15/17 10:10 Urine Ketones Negative mg/dL (NEGATIVE) 12/15/17 10:10 Urine Occult Blood Trace (NEGATIVE) 12/15/17 10:10 Urine Nitrite Negative (NEGATIVE) 12/15/17 10:10 Urine Bilirubin Negative (NEGATIVE) 12/15/17 10:10 Urine Urobilinogen 0.2 Eu (0.2-1.0) 12/15/17 10:10 Ur Leukocyte Esterase Trace (NEGATIVE) H 12/15/17 10:10 Urine Glucose Negative mg/dL (NEGATIVE) 12/15/17 10:10 Assessment/Plan - Assessment/Plan (1) CHF (congestive heart failure) Status: Acute Current Visit: Yes Qualifiers: Heart failure type: systolic Heart failure chronicity: acute on chronic Qualified Code(s): I50.23 - Acute on chronic systolic (congestive) heart failure Assessment: improved with diuresis. Renal function is tolerating diuresis. (2) Essential hypertension Status: Acute Current Visit: No Assessment: Well controlled (3) Shortness of breath Status: Acute Current Visit: No Assessment: Multifactorial (4) Paroxysmal atrial fibrillation Status: Chronic Current Visit: No
[2017-12-16] MEDS: ENOXAPARIN SODIUM 30 MG/0.3 ML DISP.SYRIN SQ SCH (17:28)
[2017-12-16] MEDS: MEMANTINE HCL 10 MG TABLET PO SCH (20:35)
[2017-12-17] MEDS: FUROSEMIDE 40 MG/4 ML VIAL IVP SCH ×2 (06:15→14:05)
[2017-12-17] MEDS: APIXABAN 2.5 MG TABLET PO SCH ×2 (08:44→20:24)
[2017-12-17] MEDS: FLUTICASONE/SALMETEROL 250-50 INHALER IH SCH ×2 (08:44→20:24)
[2017-12-17] MEDS: DILTIAZEM HCL 120 MG CAP.ER.24H PO SCH (08:44)
--- NOTE | 2017-12-17 14:13 | Inpatient Progress Note ---
Subjective - Required Recertification Statement I anticipate X number of days because-include discharge plan: 1 - Review of Systems Events since last encounter: Deana is still unable to be weaned to room air. Her saturations are OK at rest, but when she goes to the bathroom on RA her saturations are down to 86-88%. Her edema is better. Her breathing is subjectively improved. Subjective: Deana is feeling better today. She is breathing with less effort, and her pedal edema is decreased. Her family is interested in her going to [facility] on discharge from [facility] if possible. General: Denies: Chills, Night Sweats HEENT: Denies: Head Aches Pulmonary: Dyspnea. Denies: Cough Cardiovascular: Denies: Chest Pain, Palpitations Gastrointestinal: Denies: Nausea, Vomiting Genitourinary: Denies: Dysuria Musculoskeletal: Denies: Neck Pain Neurological: Weakness Objective - Exam Vitals and I&O: Vital Signs Temp 97.0 F L 12/17/17 09:10 Pulse 79 12/17/17 10:00 Resp 20 12/17/17 10:00 BP 122/77 12/17/17 09:10 Pulse Ox 92 12/17/17 09:10 Intake & Output 12/16/17 12/17/17 12/17/17 23:59 11:59 23:59 Intake Total 980 490 200 Balance 980 490 200 Intake: IV 10 Left Forearm 10 Oral 980 480 200 Other: Voiding Method Toilet Toilet # Voids 2 2 General: Alert, Oriented to Person, Oriented to Place, Oriented to Time HEENT: Atraumatic, PERRLA Neck: Supple Lungs: Rhonchi Cardiovascular: Regular rate Abdomen: Normal bowel sounds, Soft, No tenderness Extremities: No clubbing, No cyanosis, Other (Edema is improved) Skin: Normal, [place] Neurological: Normal speech Psych/Mental Status: Mental status NL - Results Results: Laboratory Results WBC 7.80 K/ul (4.00-12.00) 12/15/17 10:31 RBC 4.85 M/ul (3.90-5.20) 12/15/17 10:31 Hgb 14.6 g/dL (12.0-16.0) 12/15/17 10:31 Hct 44.9 % (34.5-46.5) 12/15/17 10:31 MCV 92.5 fl (80.0-100.0) 12/15/17 10:31 MCH 30.0 pg (28.0-34.0) 12/15/17 10:31 MCHC 32.5 g/dL (30.0-36.0) 12/15/17 10:31 RDW 13.7 % (11.3-14.3) 12/15/17 10:31 Plt Count 227 K/mm3 (130-400) 12/15/17 10:31 Neut % (Auto) 86.0 % (39.0-79.0) H 12/15/17 10:31 Lymph % (Auto) 9.1 % (16.0-50.0) L 12/15/17 10:31 [place] % (Auto) 2.7 % (0.0-11.0) 12/15/17 10:31 Eos % (Auto) 0.8 % (0.0-6.8) 12/15/17 10:31 Baso % (Auto) 0.5 (0.0-1.5) 12/15/17 10:31 Neut # (Auto) 6.7 # k/uL (1.4-7.7) 12/15/17 10:31 Lymph # (Auto) 0.7 # k/uL (0.6-4.0) 12/15/17 10:31 [place] # (Auto) 0.2 # k/uL (0.0-0.9) 12/15/17 10:31 Eos # (Auto) 0.1 # k/uL (0.0-0.6) 12/15/17 10:31 Baso # (Auto) 0.0 # k/uL (0.0-0.5) 12/15/17 10:31 PT 11.0 Seconds (9.4-11.6) 12/15/17 10:31 INR 1.05 (0.9-1.2) 12/15/17 10:31 D-Dimer 715 ng/mL (6.0-682) H 12/15/17 10:31 Sodium 135 mmol/L (136-145) L 12/16/17 05:30 Potassium 3.4 mmol/L (3.5-5.1) L 12/16/17 05:30 Chloride 96 mmol/L (98-107) L 12/16/17 05:30 Carbon Dioxide 35 mmol/L (22-30) H 12/16/17 05:30 BUN 15 mg/dL (7-17) 12/16/17 05:30 Creatinine 0.80 mg/dL (0.52-1.04) 12/16/17 05:30 Estimated Creat Clear 78 12/16/17 05:30 Est GFR ( Amer) > 60 (60-) 12/16/17 05:30 Est GFR (Non-Af Amer) > 60 (60-) 12/16/17 05:30 Glucose 95 mg/dL (74-106) 12/16/17 05:30 Calcium 8.2 mg/dL (8.4-10.2) L 12/16/17 05:30 Total Bilirubin 0.9 mg/dL (0.2-1.3) 12/16/17 05:30 AST 31 U/L (15-46) 12/16/17 05:30 ALT 22 U/L (13-69) 12/16/17 05:30 Alkaline Phosphatase 91 U/L (38-126) 12/16/17 05:30 Creatine Kinase 21 U/L (30-135) L 12/15/17 10:31 Troponin I < 0.03 ng/mL (0.03-0.06) L 12/15/17 11:06 NT-Pro-B Natriuret Pep 2315.0 pg/mL (15.0-450.0) H 12/15/17 10:31 Total Protein 5.8 g/dL (6.3-8.2) L 12/16/17 05:30 Albumin 3.2 g/dL (3.5-5.0) L 12/16/17 05:30 Urine Color Yellow (YELLOW) 12/15/17 10:10 Urine Appearance Clear (CLEAR) 12/15/17 10:10 Urine pH 7.0 (5.0 - 8.0) 12/15/17 10:10 Ur Specific [place] 1.015 (1.010-1.030) 12/15/17 10:10 Urine Protein Negative mg/dL (NEGATIVE) 12/15/17 10:10 Urine Ketones Negative mg/dL (NEGATIVE) 12/15/17 10:10 Urine Occult Blood Trace (NEGATIVE) 12/15/17 10:10 Urine Nitrite Negative (NEGATIVE) 12/15/17 10:10 Urine Bilirubin Negative (NEGATIVE) 12/15/17 10:10 Urine Urobilinogen 0.2 Eu (0.2-1.0) 12/15/17 10:10 Ur Leukocyte Esterase Trace (NEGATIVE) H 12/15/17 10:10 Urine Glucose Negative mg/dL (NEGATIVE) 12/15/17 10:10 Assessment/Plan - Assessment/Plan (1) CHF (congestive heart failure) Status: Acute Current Visit: Yes Qualifiers: Heart failure type: systolic Heart failure chronicity: acute on chronic Qualified Code(s): I50.23 - Acute on chronic systolic (congestive) heart failure Assessment: Improved with diuresis (2) Essential hypertension Status: Acute Current Visit: No Assessment: Well controlled (3) Shortness of breath Status: Acute Current Visit: No Assessment: Multifactorial (4) Paroxysmal atrial fibrillation Status: Chronic Current Visit: No Assessment: Currently NSR
[2017-12-17] MEDS: ENOXAPARIN SODIUM 30 MG/0.3 ML DISP.SYRIN SQ SCH (16:06)
[2017-12-17] MEDS: MEMANTINE HCL 10 MG TABLET PO SCH (20:25)
[2017-12-18] MEDS: FUROSEMIDE 40 MG/4 ML VIAL IVP SCH ×2 (06:25→14:24)
[2017-12-18 07:12] LABS: eGFR (Non-African) > 60
[2017-12-18 09:31] VITALS: BP 111/64
[2017-12-18] MEDS: FLUTICASONE/SALMETEROL 250-50 INHALER IH SCH (09:36)
[2017-12-18] MEDS: DILTIAZEM HCL 120 MG CAP.ER.24H PO SCH (09:37)
[2017-12-18] MEDS: APIXABAN 2.5 MG TABLET PO SCH (09:37)
--- NOTE | 2017-12-18 15:32 | Discharge Summary ---
Discharge Summary - Discharge Sumary History of Present Illness: This is an 82 year old patient of Dr. Leone with a history of cardiomyopathy and CHF who presents with a one day history of increased SOB/orthopnea and weight gain and leg swelling. She has been very busy lately in [facility] [employer] and just got back. She denies any chest pain currently or since onset of dyspnea, and her troponin is negative.Her chest XR shows failure and her BNP is 2315. She is admitted for treatment of acute c ongestive heart failure. Condition at Discharge: Stable Home Medications: Ambulatory Orders Medication Instructions Recorded Albuterol Sulfate [Proair 1 puff INH Q4-6 PRN 06/01/17 Respiclick] Diltiazem HCl [Diltiazem 24Hr Cd] 240 mg PO DAILY 06/01/17 Fluticasone/Salmeterol [Advair 1 puff INH BID 06/01/17 250-50 Diskus] Consultations this Visit: None Allergies/Adverse Reactions: Allergies Allergy/AdvReac Type Severity Reaction Status Date / Time pravastatin Allergy Verified 12/15/17 10:10 Discharge Summary: On admission patient was felt to have some congestive heart failure. Patient was subsequently started on IV Lasix. Patient had diuresis. Patient peel edema improvement. Patient breathing status improved with the IV Lasix. Patient other chronic medical problems including COPD. Patient did require some supplemental oxygen initially on admission will was able to be weaned off of it. Patient diabetes mellitus remain stable without any hyper or hypoglycemic episodes. Atrial fibrillation remain stable without any tachycardia bradycardia. Patient denies having any chest pain. Patient dementia remains stable. Patient did have episodes of confusion however did not have any behavioral issues. Prior to admission patient was having some gait problems. Patient had fallen. Physical and occupational therapy were consulted. It was felt that the patient would benefit from further therapy in a SNF setting. Patient with discharged in stable condition. - Final Diagnosis (1) CHF (congestive heart failure) Problems: improved (2) A-fib Problems: stable (3) COPD (chronic obstructive pulmonary disease) Problems: stable (4) Type 2 diabetes mellitus Problems: stable Right or Left: Left (5) Alzheimer's dementia Problems: stable
--- NOTE | 2017-12-18 17:29 | Diagnostic Imaging Report ---
JEFF KELLY [facility] [address] [facility].[address] [address] Report Submission Date: Dec 18, 2017 3:39:19 PM CDT Patient Study Name: MIRANDA HENDRICKSON Date: Dec 18, 2017 1:32:17 PM CDT Modality Type: DX Gender: F Description: CHEST : 37 Institution: [facility] Physician: JEFF KELLY Examination: PA and lateral chest. History: Evaluate lung torres. CHF; SOA (Hx) Comparison exam: 15 December 2017 Findings: PA and lateral views of the chest demonstrates a prominent cardiac and mediastinal silhouette. Vascular calcifications involving the aortic arch. Prominent hilar vasculature. Continued chronic interstitial changes. No blunting of the costophrenic margins. Osseous structures are appropriate for age. Impression: Continued cardiomegaly and prominent interstitial pattern suggesting continued congestive failure. Electronically signed on Dec 18, 2017 3:39:19 PM CDT by: Eliel MCKENNA
== END 2017-12-18 15:00 | disposition home or self-care (01) | DRG 293 ==
LOC: ED 09:54 → SOUTH 12:40
PROVIDERS: ADMIT Family Medicine; ATTEND Family Medicine
DX: I50.23 Acute on chronic systolic (congestive) heart failure (principal); J44.9 Chronic obstructive pulmonary disease, unspecified; I48.91 Unspecified atrial fibrillation; E11.9 Type 2 diabetes mellitus without complications; E78.5 Hyperlipidemia, unspecified; G30.9 Alzheimer's disease, unspecified; F02.80 Dementia in other diseases classified elsewhere, unspecified severity, without behavioral disturbance, psychotic disturbance, mood disturbance, and anxiety; Z87.891 Personal history of nicotine dependence
CPT/HCPCS: 71046; 80048; 80053; 81002; 82550; 83880; 84484; 85025; 85379; 85610; 93005; 97165; 97535; J1650; J1940; 99222; 99232; 99238; S1016

== ENCOUNTER 2017-12-18 15:58 | Inpatient (IN) | payer MEDICARE, OTHER ==
[2017-12-18] MEDS ORDERED: IPRATROPIUM/ALBUTEROL SULFATE 3 ML AMPUL.NEB NEB PRN (16:53)
--- NOTE | 2017-12-18 16:59 | History and Physical Report ---
History of Present Illnes - History of Present Illness Reason for Visit: gait disturbance History of Present Illness: On admission to acute care patient was felt to have some congestive heart failure. Patient was subsequently started on IV Lasix. Patient had good diuresis. Patient peel edema improvement. Patient breathing status improved with the IV Lasix. Patient other chronic medical problems including COPD. Patient did require some supplemental oxygen initially on admission will was able to be weaned off of it. Patient diabetes mellitus remain stable without any hyper or hypoglycemic episodes. Atrial fibrillation remain stable without any tachycardia bradycardia. Patient denies having any chest pain. Patient dementia remains stable. Patient did have episodes of confusion however did not have any behavioral issues. Prior to admission patient was having some gait problems. Patient had fallen. Physical and occupational therapy were consulted. It was felt that the patient would benefit from further therapy in a SNF setting. Patient was admitted to SNF in stable condition. 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 negative: Fever, Chills Eyes: negative: pain, vision change ENT: negative: Ear Pain, Ear Discharge, Nose Pain, Nose Discharge, Nose Congestion, Mouth Pain, Mouth Swelling, Throat Pain Respiratory: Shortness of Breath (mild), SOB with Excertion. negative: Cough, Dry, Hemoptysis, Pleuritic Pain, Sputum, Wheezing Cardiovascular: negative: Chest Pain, Palpitations, Orthopnea, Edema, Light Headedness Gastrointestinal: negative: Nausea, Vomiting, Abdominal Pain, Diarrhea, Constipation, Melena, Hematochezia Genitourinary: negative: Dysuria, Frequency, Incontinence, Hematuria, Retention Musculoskeletal: Back Pain Skin: negative: Rash Neurological: Confusion. negative: Weakness, Numbness, Seizures - Medications/Allergies Allergies/Adverse Reactions: Allergies Allergy/AdvReac Type Severity Reaction Status Date / Time pravastatin Allergy Verified 12/15/17 10:10 Current Inpatient Medications: Current Inpatient Medications Albuterol/Ipratropium (Duoneb) 3 ml NEB Q6 PRN PRN Reason: Wheezing Atorvastatin Calcium (Lipitor) 40 mg PO HS GIORGIO Diltiazem HCl (Cardizem Cd) 240 mg PO DAILY GIORG[facility] Furosemide (Lasix) 40 mg PO DAILY GIORGIO Memantine (Namenda) 5 mg PO HS [facility] Metoprolol Tartrate (Lopressor) 25 mg PO BID [facility] Miscellaneous (Chem Sticks) 1 each MC 0730 [facility] Potassium Chloride (Klor-Con 10) 10 meq PO DAILY GIORGIO Fluticasone/Salmeterol (Advair 250-50 Diskus) each IH BID [facility] Exam - Exam Vital Signs: Vital Signs (72 hours) 12/16/17 12/18/17 18:00 09:23 Blood Pressure 111/64 Blood Pressure 121/63 [Left Arm] Blood Pressure 111/64 [Right Arm] General: Alert, Oriented to Person, Oriented to Place, Cooperative HEENT: Atraumatic, PERRLA, EOMI, Mouth Mucous membr. moist/[place], Nose Mucous membr. moist/Carrizo, Hearing Grossly Normal Neck: Normal Range of Motion Carotids: WNL Thyroid: WNL Lungs: Clear to auscultation, Normal air movement, Speaks full Sentences Cardiovascular: Normal S1, Normal S2, No murmurs, Irregularly Irregular Abdomen: Normal bowel sounds, Soft, No tenderness, No hepatospenomegaly, No masses Integumentary: Normal, [place], Warm, Dry Extremities: No clubbing, No cyanosis, No edema, Normal pulses, No tenderness/swelling Neurological: Normal speech, Strength Equal Bilat, Normal tone, Sensation intact, Cranial nerves 3-12 NL, Reflexes 2+, Other (waddling gait) Psych/Mental Status: Mental status NL, Mood NL, Appropriate Affect. No: Intact Judgment Assessment/Plan - Assessment/Plan (1) Gait disturbance Status: Acute Current Visit: No (2) CHF (congestive heart failure) Status: Acute Current Visit: No Qualifiers: (3) A-fib Status: Chronic Current Visit: No (4) COPD (chronic obstructive pulmonary disease) Status: Chronic Current Visit: No (5) Type 2 diabetes mellitus Status: Chronic Current Visit: No Qualifiers: (6) Alzheimer's dementia Status: Chronic Current Visit: No Qualifiers: Alzheimer's disease onset: late-onset Dementia behavioral disturbance: without behavioral disturbance Qualified Code(s): G30.1 - Alzheimer's disease with late onset; F02.80 - Dementia in other diseases classified elsewhere without behavioral disturbance (7) Essential hypertension Status: Chronic Current Visit: No VTE Assessment - RISK FACTOR SCORE VTE RISK FACTOR SCORES: AGE OVER 60 YEARS, CONGESTIVE HEART FAILURE OR MYOCARDIAL INFARCTION (on eliquis ) - RISK VTE MODERATE RISK: SCORE OF 2 (RISK PROXIMAL DVT 2-4%) PROPHYAXIS NEEDED
[2017-12-18] MEDS: APIXABAN 2.5 MG TABLET PO SCH (21:02)
[2017-12-18] MEDS: ATORVASTATIN CALCIUM 80 MG TABLET PO SCH (21:02)
[2017-12-18] MEDS: MEMANTINE HCL 10 MG TABLET PO SCH (21:03)
[2017-12-18] MEDS: METOPROLOL TARTRATE 25 MG TABLET PO SCH (21:03)
[2017-12-18 23:40] VITALS: BMI 58.6
[2017-12-19] MEDS: DILTIAZEM HCL 120 MG CAP.ER.24H PO SCH (08:14)
[2017-12-19] MEDS: APIXABAN 2.5 MG TABLET PO SCH ×2 (08:14→20:30)
[2017-12-19] MEDS: FUROSEMIDE 40 MG TABLET PO SCH (08:15)
[2017-12-19] MEDS: POTASSIUM CHLORIDE 10 MEQ TABLET.ER PO SCH (08:15)
[2017-12-19] MEDS: METOPROLOL TARTRATE 25 MG TABLET PO SCH ×2 (08:16→20:30)
[2017-12-19] MEDS ORDERED: FLUTICASONE/SALMETEROL 250-50 INHALER IH PRN (12:54)
[2017-12-19] MEDS: MEMANTINE HCL 10 MG TABLET PO SCH (20:31)
[2017-12-19] MEDS: ATORVASTATIN CALCIUM 80 MG TABLET PO SCH (20:31)
[2017-12-19] MEDS: FLUTICASONE/SALMETEROL 250-50 INHALER IH SCH ×2 (20:59→21:00)
[2017-12-20] MEDS: DILTIAZEM HCL 120 MG CAP.ER.24H PO SCH (09:52)
[2017-12-20] MEDS: METOPROLOL TARTRATE 25 MG TABLET PO SCH ×2 (09:52→20:29)
[2017-12-20] MEDS: POTASSIUM CHLORIDE 10 MEQ TABLET.ER PO SCH (09:52)
[2017-12-20] MEDS: APIXABAN 2.5 MG TABLET PO SCH ×2 (09:52→20:27)
[2017-12-20] MEDS: FUROSEMIDE 40 MG TABLET PO SCH (09:53)
[2017-12-20] MEDS: ATORVASTATIN CALCIUM 80 MG TABLET PO SCH (20:27)
[2017-12-20] MEDS: MEMANTINE HCL 10 MG TABLET PO SCH (20:29)
[2017-12-21] MEDS: FUROSEMIDE 40 MG TABLET PO SCH (09:27)
[2017-12-21] MEDS: METOPROLOL TARTRATE 25 MG TABLET PO SCH ×2 (09:27→21:17)
[2017-12-21] MEDS: APIXABAN 2.5 MG TABLET PO SCH ×2 (09:27→21:15)
[2017-12-21] MEDS: POTASSIUM CHLORIDE 10 MEQ TABLET.ER PO SCH (09:27)
[2017-12-21] MEDS: DILTIAZEM HCL 120 MG CAP.ER.24H PO SCH (09:27)
[2017-12-21] MEDS: ATORVASTATIN CALCIUM 80 MG TABLET PO SCH (21:13)
[2017-12-21] MEDS: MEMANTINE HCL 10 MG TABLET PO SCH (21:16)
[2017-12-22] MEDS: POTASSIUM CHLORIDE 10 MEQ TABLET.ER PO SCH (09:13)
[2017-12-22] MEDS: APIXABAN 2.5 MG TABLET PO SCH ×2 (09:13→20:15)
[2017-12-22] MEDS: DILTIAZEM HCL 120 MG CAP.ER.24H PO SCH (09:13)
[2017-12-22] MEDS: METOPROLOL TARTRATE 25 MG TABLET PO SCH ×2 (09:13→20:15)
[2017-12-22] MEDS: FUROSEMIDE 40 MG TABLET PO SCH (09:13)
[2017-12-22] MEDS: MEMANTINE HCL 10 MG TABLET PO SCH (20:14)
[2017-12-22] MEDS: ATORVASTATIN CALCIUM 80 MG TABLET PO SCH (20:15)
[2017-12-23] MEDS: POTASSIUM CHLORIDE 10 MEQ TABLET.ER PO SCH (08:28)
[2017-12-23] MEDS: APIXABAN 2.5 MG TABLET PO SCH ×2 (08:28→20:19)
[2017-12-23] MEDS: FUROSEMIDE 40 MG TABLET PO SCH (08:28)
[2017-12-23] MEDS: METOPROLOL TARTRATE 25 MG TABLET PO SCH ×2 (08:28→20:19)
[2017-12-23] MEDS: DILTIAZEM HCL 120 MG CAP.ER.24H PO SCH (08:28)
[2017-12-23] MEDS: MEMANTINE HCL 10 MG TABLET PO SCH (20:19)
[2017-12-23] MEDS: ATORVASTATIN CALCIUM 80 MG TABLET PO SCH (20:20)
[2017-12-24 06:41] LABS: eGFR (Non-African) > 60
[2017-12-24] MEDS: METOPROLOL TARTRATE 25 MG TABLET PO SCH ×2 (09:00→20:05)
[2017-12-24] MEDS: DILTIAZEM HCL 120 MG CAP.ER.24H PO SCH (09:00)
[2017-12-24] MEDS: FUROSEMIDE 40 MG TABLET PO SCH (09:00)
[2017-12-24] MEDS: APIXABAN 2.5 MG TABLET PO SCH ×2 (09:01→20:05)
[2017-12-24] MEDS: POTASSIUM CHLORIDE 10 MEQ TABLET.ER PO SCH (09:01)
[2017-12-24] MEDS: ATORVASTATIN CALCIUM 80 MG TABLET PO SCH (20:05)
[2017-12-24] MEDS: MEMANTINE HCL 10 MG TABLET PO SCH (20:05)
[2017-12-24 20:41] LABS: BASO % 0.7 % (0.0-1.5); EOS % 1.7 % (0.0-6.8); LYMPH ABS # 1.27 thou/uL (0.60-4.00); MCV 92.5 fL (80.0-100.0); MONOCYTE % 7.2 % (0.0-11.0); MONOCYTE ABS # 0.64 thou/uL (0.00-0.90); PLATELET COUNT 277 thou/uL (130-400)
[2017-12-25] MEDS: FUROSEMIDE 40 MG TABLET PO SCH (08:18)
[2017-12-25] MEDS: POTASSIUM CHLORIDE 10 MEQ TABLET.ER PO SCH (08:18)
[2017-12-25] MEDS: APIXABAN 2.5 MG TABLET PO SCH ×2 (08:19→21:02)
[2017-12-25] MEDS: DILTIAZEM HCL 120 MG CAP.ER.24H PO SCH ×2 (08:20→10:10)
[2017-12-25] MEDS: METOPROLOL TARTRATE 25 MG TABLET PO SCH ×2 (08:20→21:02)
[2017-12-25] MEDS: ATORVASTATIN CALCIUM 80 MG TABLET PO SCH (21:02)
[2017-12-25] MEDS: MEMANTINE HCL 10 MG TABLET PO SCH (21:03)
[2017-12-26] MEDS: APIXABAN 2.5 MG TABLET PO SCH ×2 (08:19→20:19)
[2017-12-26] MEDS: POTASSIUM CHLORIDE 10 MEQ TABLET.ER PO SCH (08:20)
[2017-12-26] MEDS: FUROSEMIDE 40 MG TABLET PO SCH (08:20)
[2017-12-26] MEDS: METOPROLOL TARTRATE 25 MG TABLET PO SCH ×2 (08:20→20:21)
[2017-12-26] MEDS: DILTIAZEM HCL 120 MG CAP.ER.24H PO SCH (08:20)
[2017-12-26] MEDS: ATORVASTATIN CALCIUM 80 MG TABLET PO SCH (20:20)
[2017-12-26] MEDS: MEMANTINE HCL 10 MG TABLET PO SCH (20:21)
[2017-12-27] MEDS: FUROSEMIDE 40 MG TABLET PO SCH (08:47)
[2017-12-27] MEDS: DILTIAZEM HCL 120 MG CAP.ER.24H PO SCH (08:47)
[2017-12-27] MEDS: METOPROLOL TARTRATE 25 MG TABLET PO SCH ×2 (08:47→20:12)
[2017-12-27] MEDS: POTASSIUM CHLORIDE 10 MEQ TABLET.ER PO SCH (08:47)
[2017-12-27] MEDS: APIXABAN 2.5 MG TABLET PO SCH ×2 (08:47→20:12)
[2017-12-27] MEDS: MEMANTINE HCL 10 MG TABLET PO SCH (20:12)
[2017-12-27] MEDS: ATORVASTATIN CALCIUM 80 MG TABLET PO SCH (20:12)
[2017-12-28] MEDS: METOPROLOL TARTRATE 25 MG TABLET PO SCH ×2 (08:57→20:09)
[2017-12-28] MEDS: DILTIAZEM HCL 120 MG CAP.ER.24H PO SCH (08:57)
[2017-12-28] MEDS: APIXABAN 2.5 MG TABLET PO SCH ×2 (08:58→20:10)
[2017-12-28] MEDS: POTASSIUM CHLORIDE 10 MEQ TABLET.ER PO SCH (08:58)
[2017-12-28] MEDS: FUROSEMIDE 40 MG TABLET PO SCH (08:58)
[2017-12-28] MEDS: ATORVASTATIN CALCIUM 80 MG TABLET PO SCH (20:10)
[2017-12-28] MEDS: MEMANTINE HCL 10 MG TABLET PO SCH (20:10)
[2017-12-29] MEDS: METOPROLOL TARTRATE 25 MG TABLET PO SCH ×2 (08:43→20:59)
[2017-12-29] MEDS: POTASSIUM CHLORIDE 10 MEQ TABLET.ER PO SCH (08:43)
[2017-12-29] MEDS: APIXABAN 2.5 MG TABLET PO SCH ×2 (08:43→20:58)
[2017-12-29] MEDS: DILTIAZEM HCL 120 MG CAP.ER.24H PO SCH (08:44)
[2017-12-29] MEDS: FUROSEMIDE 40 MG TABLET PO SCH (08:44)
[2017-12-29] MEDS: MEMANTINE HCL 10 MG TABLET PO SCH (20:59)
[2017-12-29] MEDS: ATORVASTATIN CALCIUM 80 MG TABLET PO SCH (21:01)
[2017-12-30] MEDS: APIXABAN 2.5 MG TABLET PO SCH ×2 (09:00→20:12)
[2017-12-30] MEDS: DILTIAZEM HCL 120 MG CAP.ER.24H PO SCH (09:00)
[2017-12-30] MEDS: POTASSIUM CHLORIDE 10 MEQ TABLET.ER PO SCH (09:01)
[2017-12-30] MEDS: METOPROLOL TARTRATE 25 MG TABLET PO SCH ×2 (09:01→20:13)
[2017-12-30] MEDS: FUROSEMIDE 40 MG TABLET PO SCH (09:01)
[2017-12-30] MEDS: MEMANTINE HCL 10 MG TABLET PO SCH (20:12)
[2017-12-30] MEDS: ATORVASTATIN CALCIUM 80 MG TABLET PO SCH (20:12)
[2017-12-31] MEDS: DILTIAZEM HCL 120 MG CAP.ER.24H PO SCH (08:44)
[2017-12-31] MEDS: APIXABAN 2.5 MG TABLET PO SCH ×2 (08:44→19:33)
[2017-12-31] MEDS: FUROSEMIDE 40 MG TABLET PO SCH (08:44)
[2017-12-31] MEDS: METOPROLOL TARTRATE 25 MG TABLET PO SCH ×2 (08:45→19:34)
[2017-12-31] MEDS: POTASSIUM CHLORIDE 10 MEQ TABLET.ER PO SCH (08:45)
[2017-12-31] MEDS: MEMANTINE HCL 10 MG TABLET PO SCH (19:33)
[2017-12-31] MEDS: ATORVASTATIN CALCIUM 80 MG TABLET PO SCH (19:33)
[2018-01-01] MEDS: FUROSEMIDE 40 MG TABLET PO SCH (08:35)
[2018-01-01] MEDS: METOPROLOL TARTRATE 25 MG TABLET PO SCH (08:35)
[2018-01-01] MEDS: POTASSIUM CHLORIDE 10 MEQ TABLET.ER PO SCH (08:35)
[2018-01-01] MEDS: APIXABAN 2.5 MG TABLET PO SCH (08:35)
[2018-01-01] MEDS: DILTIAZEM HCL 120 MG CAP.ER.24H PO SCH (08:36)
[2018-01-01 11:06] VITALS: BP 101/49
--- NOTE | 2018-01-01 19:57 | Discharge Summary ---
Discharge Summary - Discharge Sumary History of Present Illness: 82-year-old white female who presented to the emergency room that she is developed some increasing shortness of breath and dyspnea. Patient has had some weight gain. Patient was felt to have some congestive heart failure was subsequently admitted to the hospital for further evaluation and treatment. At the time to discharge patient was having some ambulatory difficulties. It was felt that she was unsafe to return home due to increase fall risk. Patient was subsequently admitted to SNF for further physical and occupational therapy. Home Medications: Ambulatory Orders Medication Instructions Recorded Albuterol Sulfate [Proair 1 puff INH Q4-6 PRN 06/01/17 Respiclick] Diltiazem HCl [Diltiazem 24Hr Cd] 240 mg PO DAILY 06/01/17 Fluticasone/Salmeterol [Advair 1 puff INH BID 06/01/17 250-50 Diskus] Ipratropium/Albuterol Sulfate 3 ml NEB Q6 PRN ampul.neb 01/01/18 [Duoneb] Allergies/Adverse Reactions: Allergies Allergy/AdvReac Type Severity Reaction Status Date / Time pravastatin Allergy Verified 12/15/17 10:10 Discharge Summary: Patient did well during her hospitalization. Patient is highly motivated to participate with physical and occupational therapy. Patient data did improve. Patient diabetes mellitus remain stable without any hyper or hypoglycemic episodes. Patient congestive heart they remained stable with only minimal increase in her weight. Patient breathing status but stable. Patient atrial fibrillation remain stable without any tachycardia bradycardia. Patient was maintain on anticoagulation therapy. Patient dementia remain stable. Patient denies any behavioral issues. However patient did remain confused. It was reported that the patient did have some incontinent issues of her bowels prior to admission. However she did not have any during her hospitalization. - Final Diagnosis (1) Gait disturbance Problems: Improved (2) CHF (congestive heart failure) Problems: Stable on home medications. (3) A-fib Problems: Stable on home medications. (4) COPD (chronic obstructive pulmonary disease) Problems: Stable on home medications. (5) Type 2 diabetes mellitus Problems: Stable on home medications. (6) Alzheimer's dementia Problems: Stable on home medications. (7) Essential hypertension Problems: Stable on home medications.
--- NOTE | 2018-01-01 20:05 | Inpatient Progress Note ---
Subjective - Required Recertification Statement I anticipate X number of days because-include discharge plan: 7 days - Review of Systems Subjective: Patient stated she is been doing well. Patient is participating with physical and occupational therapy well. Patient congestive heart failure. To be stable. Diabetes mellitus has been stable without any hypoglycemic episodes. Patient other chronic medical problems her stable. Objective - Exam Vitals and I&O: Vital Signs Temp 98.1 F 01/01/18 11:58 Pulse 75 01/01/18 11:58 Resp 20 01/01/18 11:58 BP 133/66 01/01/18 11:58 Pulse Ox 96 01/01/18 11:58 Intake & Output 12/31/17 01/01/18 01/01/18 23:59 11:59 23:59 Intake Total 1860 720 Balance 1860 720 Weight 77.111 kg Intake: Oral 1860 720 Other: Voiding Method Toilet Toilet # Voids 4 2 General: Alert, Oriented to Person, Oriented to Place, Oriented to Time, Cooperative Neck: Supple, No JVD Lungs: Clear to auscultation, Normal air movement, Rales (few scattered). No: Wheezes, Rhonchi Cardiovascular: Normal S1, Normal S2, Irregularly Irregular Extremities: No clubbing, No cyanosis, No edema Skin: [place], Warm, Dry Neurological: Normal gait Psych/Mental Status: Mood NL, Appropriate Affect. No: Mental status NL (confused), Intact Judgment - Results Results: Laboratory Results WBC Comment 8.91 thou/uL (4.00-12.00) 12/24/17 06:00 RBC 4.83 mil/uL (3.90-5.20) 12/24/17 06:00 Hemoglobin (Send Out) 14.5 g/dL (11.5-16.0) 12/24/17 06:00 Hct (Send Out) 44.7 % (34.5-46.5) 12/24/17 06:00 MCV (Send Out) 92.5 fL (80.0-100.0) 12/24/17 06:00 MCH 30.0 pg (28.0-34.0) 12/24/17 06:00 MCHC (Send Out) 32.5 g/dL (30.0-36.0) 12/24/17 06:00 RDW Coeff of Marlon 13.6 % (11.3-14.7) 12/24/17 06:00 Plt Count 277 thou/uL (130-400) 12/24/17 06:00 Absolute Lymphs (auto) 1.27 thou/uL (0.60-4.00) 12/24/17 06:00 Absolute Monos (auto) 0.64 thou/uL (0.00-0.90) 12/24/17 06:00 Absolute Basos (auto) 0.06 thou/uL (0.00-0.50) 12/24/17 06:00 Neutrophils % 76.1 % (39.0-79.0) 12/24/17 06:00 Absolute Neutrophils 6.78 thou/uL (1.50-7.70) 12/24/17 06:00 Lymphocytes 14.2 % (16.0-50.0) L 12/24/17 06:00 Monocytes 7.2 % (0.0-11.0) 12/24/17 06:00 Absolute Eosinophils 0.15 thou/uL (0.00-0.60) 12/24/17 06:00 Basophilia % 0.7 % (0.0-1.5) 12/24/17 06:00 Eosinophil Count 1.7 % (0.0-6.8) 12/24/17 06:00 Sodium 135 mmol/L (136-145) L 12/24/17 06:00 Potassium 3.9 mmol/L (3.5-5.1) 12/24/17 06:00 Chloride 93 mmol/L (98-107) L 12/24/17 06:00 Carbon Dioxide 35 mmol/L (22-30) H 12/24/17 06:00 BUN 16 mg/dL (7-17) 12/24/17 06:00 Creatinine 0.80 mg/dL (0.52-1.04) 12/24/17 06:00 Estimated Creat Clear 78 12/24/17 06:00 Est GFR ( Amer) > 60 (60-) 12/24/17 06:00 Est GFR (Non-Af Amer) > 60 (60-) 12/24/17 06:00 Glucose 107 mg/dL (74-106) H 12/24/17 06:00 Calcium 8.4 mg/dL (8.4-10.2) 12/24/17 06:00 Total Bilirubin 0.8 mg/dL (0.2-1.3) 12/24/17 06:00 AST 15 U/L (15-46) 12/24/17 06:00 ALT 23 U/L (13-69) 12/24/17 06:00 Alkaline Phosphatase 96 U/L (38-126) 12/24/17 06:00 Total Protein 6.4 g/dL (6.3-8.2) 12/24/17 06:00 Albumin 3.5 g/dL (3.5-5.0) 12/24/17 06:00 Assessment/Plan - Assessment/Plan (1) Gait disturbance Status: Acute Assessment: improved,We will continue with physical and occupational therapy. (2) CHF (congestive heart failure) Status: Chronic Qualifiers: Heart failure type: diastolic Heart failure chronicity: chronic Qualified Code(s): I50.32 - Chronic diastolic (congestive) heart failure Assessment: stable (3) A-fib Status: Chronic Assessment: stable (4) COPD (chronic obstructive pulmonary disease) Status: Chronic (5) Type 2 diabetes mellitus Status: Chronic Qualifiers: Diabetes mellitus fci insulin use: without fci use Diabetes mellitus complication status: without complication Qualified Code(s): E11.9 - Type 2 diabetes mellitus without complications Assessment: stable (6) Alzheimer's dementia Status: Chronic Qualifiers: Alzheimer's disease onset: late-onset Dementia behavioral disturbance: without behavioral disturbance Qualified Code(s): G30.1 - Alzheimer's disease with late onset; F02.80 - Dementia in other diseases classified elsewhere without behavioral disturbance Assessment: I have been talking to the patient in the patient family. He that the patient family desire that the patient not return home at this time due to difficult home situation. Patient is been advised to be admitted to an extended care facility will or assisted living. (7) Essential hypertension Status: Chronic Assessment: stable
--- NOTE | 2018-01-01 20:10 | Inpatient Progress Note ---
Subjective - Required Recertification Statement I anticipate X number of days because-include discharge plan: 14 - Review of Systems Subjective: Patient stated she is been doing well. Patient is participating with physical and occupational therapy well. Patient congestive heart failure. To be stable. Diabetes mellitus has been stable without any hypoglycemic episodes. Patient other chronic medical problems her stable.Dementia has been stable without any behavioral issues. Objective - Exam Vitals and I&O: Vital Signs Temp 98.1 F 01/01/18 11:58 Pulse 75 01/01/18 11:58 Resp 20 01/01/18 11:58 BP 133/66 01/01/18 11:58 Pulse Ox 96 01/01/18 11:58 Intake & Output 12/31/17 01/01/18 01/01/18 23:59 11:59 23:59 Intake Total 1860 720 Balance 1860 720 Weight 77.111 kg Intake: Oral 1860 720 Other: Voiding Method Toilet Toilet # Voids 4 2 General: Alert, Oriented to Person, Oriented to Place, Cooperative. No: Oriented to Time Lungs: Clear to auscultation, Normal air movement, Speaks full Sentences Cardiovascular: Normal S1, Normal S2, No murmurs, Atrial Fib Abdomen: Normal bowel sounds, Soft, No tenderness Extremities: No clubbing, No cyanosis Skin: Normal, [place], Warm, Dry Psych/Mental Status: Mood NL, Appropriate Affect. No: Mental status NL (confused some), Intact Judgment - Results Results: Laboratory Results WBC Comment 8.91 thou/uL (4.00-12.00) 12/24/17 06:00 RBC 4.83 mil/uL (3.90-5.20) 12/24/17 06:00 Hemoglobin (Send Out) 14.5 g/dL (11.5-16.0) 12/24/17 06:00 Hct (Send Out) 44.7 % (34.5-46.5) 12/24/17 06:00 MCV (Send Out) 92.5 fL (80.0-100.0) 12/24/17 06:00 MCH 30.0 pg (28.0-34.0) 12/24/17 06:00 MCHC (Send Out) 32.5 g/dL (30.0-36.0) 12/24/17 06:00 RDW Coeff of Marlon 13.6 % (11.3-14.7) 12/24/17 06:00 Plt Count 277 thou/uL (130-400) 12/24/17 06:00 Absolute Lymphs (auto) 1.27 thou/uL (0.60-4.00) 12/24/17 06:00 Absolute Monos (auto) 0.64 thou/uL (0.00-0.90) 12/24/17 06:00 Absolute Basos (auto) 0.06 thou/uL (0.00-0.50) 12/24/17 06:00 Neutrophils % 76.1 % (39.0-79.0) 12/24/17 06:00 Absolute Neutrophils 6.78 thou/uL (1.50-7.70) 12/24/17 06:00 Lymphocytes 14.2 % (16.0-50.0) L 12/24/17 06:00 Monocytes 7.2 % (0.0-11.0) 12/24/17 06:00 Absolute Eosinophils 0.15 thou/uL (0.00-0.60) 12/24/17 06:00 Basophilia % 0.7 % (0.0-1.5) 12/24/17 06:00 Eosinophil Count 1.7 % (0.0-6.8) 12/24/17 06:00 Sodium 135 mmol/L (136-145) L 12/24/17 06:00 Potassium 3.9 mmol/L (3.5-5.1) 12/24/17 06:00 Chloride 93 mmol/L (98-107) L 12/24/17 06:00 Carbon Dioxide 35 mmol/L (22-30) H 12/24/17 06:00 BUN 16 mg/dL (7-17) 12/24/17 06:00 Creatinine 0.80 mg/dL (0.52-1.04) 12/24/17 06:00 Estimated Creat Clear 78 12/24/17 06:00 Est GFR ( Amer) > 60 (60-) 12/24/17 06:00 Est GFR (Non-Af Amer) > 60 (60-) 12/24/17 06:00 Glucose 107 mg/dL (74-106) H 12/24/17 06:00 Calcium 8.4 mg/dL (8.4-10.2) 12/24/17 06:00 Total Bilirubin 0.8 mg/dL (0.2-1.3) 12/24/17 06:00 AST 15 U/L (15-46) 12/24/17 06:00 ALT 23 U/L (13-69) 12/24/17 06:00 Alkaline Phosphatase 96 U/L (38-126) 12/24/17 06:00 Total Protein 6.4 g/dL (6.3-8.2) 12/24/17 06:00 Albumin 3.5 g/dL (3.5-5.0) 12/24/17 06:00 Assessment/Plan - Assessment/Plan (1) Gait disturbance Status: Acute Assessment: improving (2) CHF (congestive heart failure) Status: Chronic Qualifiers: Heart failure type: diastolic Heart failure chronicity: chronic Qualified Code(s): I50.32 - Chronic diastolic (congestive) heart failure Assessment: stable (3) A-fib Status: Chronic Assessment: stable (4) COPD (chronic obstructive pulmonary disease) Status: Chronic (5) Type 2 diabetes mellitus Status: Chronic Qualifiers: Diabetes mellitus correction insulin use: without rodent exterminator use Diabetes mellitus complication status: without complication Qualified Code(s): E11.9 - Type 2 diabetes mellitus without complications Assessment: stable (6) Alzheimer's dementia Status: Chronic Qualifiers: Alzheimer's disease onset: late-onset Dementia behavioral disturbance: without behavioral disturbance Qualified Code(s): G30.1 - Alzheimer's disease with late onset; F02.80 - Dementia in other diseases classified elsewhere without behavioral disturbance Assessment: stable (7) Essential hypertension Status: Chronic Assessment: stable
== END 2018-01-01 12:50 | DRG 93 ==
LOC: SOUTH 15:58
PROVIDERS: ADMIT Family Medicine; ATTEND Family Medicine
DX: R26.9 Unspecified abnormalities of gait and mobility (principal); Z91.81 History of falling; I50.9 Heart failure, unspecified; I10 Essential (primary) hypertension; J44.9 Chronic obstructive pulmonary disease, unspecified; I48.91 Unspecified atrial fibrillation; E11.9 Type 2 diabetes mellitus without complications; G30.9 Alzheimer's disease, unspecified; F02.80 Dementia in other diseases classified elsewhere, unspecified severity, without behavioral disturbance, psychotic disturbance, mood disturbance, and anxiety
CPT/HCPCS: 80053; 85025

== ENCOUNTER 2018-01-01 12:51 | Inpatient (IN) | payer SELFPAY ==
[2018-01-01 11:06] VITALS: BP 101/49
== END 2018-03-16 10:35 | DRG 948 ==
LOC: ICF 12:51 → UNDOADMIN 12:51 → ICF 14:14 → UNDOADMIN 01-17 12:49 → ICF 01-17 12:49 → UNDOADMIN 01-17 14:14 → ICF 01-30 14:14
PROVIDERS: ADMIT Family Medicine; ATTEND Family Medicine
DX: R53.1 Weakness (principal)

== ENCOUNTER 2018-01-02 07:54 | Outpatient (CLI) | payer MEDICARE, OTHER ==
[2018-01-01 11:06] VITALS: BP 101/49
== END 2018-01-02 07:55 ==
LOC: LAB 07:54
PROVIDERS: ATTEND Family Medicine
DX: E11.9 Type 2 diabetes mellitus without complications (principal)
CPT/HCPCS: 36415; 82043; 83036; 83880

== ENCOUNTER 2018-03-15 09:02 | Outpatient (CLI) | payer MEDICARE, OTHER ==
[2018-03-15 09:23] LABS: eGFR (Non-African) > 60
== END 2018-03-15 09:03 ==
LOC: LAB 09:02
PROVIDERS: ATTEND Family Medicine
DX: E11.9 Type 2 diabetes mellitus without complications (principal); I10 Essential (primary) hypertension
CPT/HCPCS: 36415; 80048

== ENCOUNTER 2018-06-20 10:30 | Inpatient (IN) | payer MEDICARE, OTHER ==
[2018-06-20] MEDS ORDERED: IPRATROPIUM/ALBUTEROL SULFATE 3 ML AMPUL.NEB NEB ONE (10:32)
[2018-06-20] MEDS ORDERED: methylPREDNISolone SOD SUCC 125 MG/2 ML VIAL IVP ONE (10:45)
[2018-06-20 10:49] LABS: BASOPHILS % 0.6 (0.0-1.5); MEAN CORPUSCULAR HEMOGLOBIN 30.4 pg (28.0-34.0); MONOCYTES % 4.2 % (0.0-11.0); NEUTROPHILS # 13.4 # k/uL (1.4-7.7)
--- NOTE | 2018-06-20 10:50 | ED Physician Documentation ---
Dyspnea - HISTORIAN Historian: patient, child (son) - HPI Chief Complaint: Dyspnea Additional Information: Patient is an 82-year-old female who resides at [facility]. According to son- he was contacted to take his mom to the ER for shortness of breath that started this morning. Patient received a breathing treatment prior to arrival with no relief- she is not normally on oxygen. On arrival to ER patient is tachypneic, moderate resp. distress, with oxygen saturation in the 80s. She states that she feels that she cant catch her breath- occasional non-productive cough. Onset: hours (Started earlier this morning) Duration: continues in ED Initiating Event: upper respiratory illness (history of COPD /CHF) Severity: moderate Exacerbated By: exertion, laying flat Associated Symptoms: denies: fever, chest pain Further Comments: no - ROS CONST: weakness EYES/ENT: none GI/: none NEURO/PSYCH: denies: headache MS/SKIN/LYMPH: muscle aches - PAST HX Lung Disease: COPD Cardiac Disease: CHF, A-Fib PE Risk Factors: hypertension, other Surgeries/Procedures: cholecystectomy, hysterectomy, other (partial colectomy) Other History: diabetes Type 2, other (Dementia, Cardiomyopathy) Allergies/Adverse Reactions: Allergies Allergy/AdvReac Type Severity Reaction Status Date / Time pravastatin Allergy Verified 06/20/18 10:51 Home Medications: Ambulatory Orders Medication Instructions Recorded Albuterol Sulfate [Proair 1 puff INH Q4-6 PRN 06/01/17 Respiclick] Diltiazem HCl [Diltiazem 24Hr Cd] 240 mg PO DAILY 06/01/17 Fluticasone/Salmeterol [Advair 1 puff INH BID 06/01/17 250-50 Diskus] Ipratropium/Albuterol Sulfate 3 ml NEB Q6 PRN ampul.neb 01/01/18 [Duoneb] Acetaminophen [Tylenol] 2 tab PO PRN PRN 06/20/18 Atorvastatin Calcium 1 tab PO HS 06/20/18 Metformin HCl [Glucophage] 1 tab PO DAILY 06/20/18 Psyllium Husk [Metamucil] 1 cap PO Q4-6 06/20/18 - SOCIAL HX Smoking History: quit greater than 1 year, other (hx of smoking many years) Alcohol Use: none Drug Use: none - FAMILY HX Family History: other (Mom & dad - family hx of CAD) - VITAL SIGNS Vital Signs: Vital Signs Temp Pulse Resp BP Pulse Ox 133/66 01/01/18 11:58 - REVIEWED ASSESSMENTS Nursing Assessment Reviewed: Yes Vitals Reviewed: Yes Progress - Results/Orders Results/Orders: "Exam: Chest 2 views. History: Shortness of breath. Cough. The examination is compared to a study dated December 18, 2017. Lung torres are very well aerated. Perihilar infiltrates are noted. No consolidation or effusions are seen. Cardiomegaly is stable with atherosclerotic plaque seen in the aorta. Degenerative changes in thoracic spine are noted. Impression: Perihilar infiltrates. Stable cardiomegaly. Electronically signed on Jun 20, 2018 11:27:20 AM CLUB ATTENDANT by: Ismael Vivas - Progress Progress: Influenza Negative Patient will be admitted to inpatient care for pneumonia. She continues to desat in the 80s when her oxygen is not on- she had mild improvement after HFN tx- she gets anxious and starts getting short of breath. She has dementia and forgets to leave the oxygen on- we will start her on IV antibiotics x 2 while pending blood cultures- she also has a UTI that we will send for culture- she will get scheduled breathing treatments for her SOA and will monitor oxygen level until patient is able to maintain RA sats of >93. We will monitor and treat her CHF with elevated BNP and infiltrates on xray. Her afib is rate controlled and will continue with anticoagulation therapy. - EKG/XRAY/CT Comments: EKG- Afib unchanged ED Results Lab/Radiology - Orders Orders: ED Orders Category Date Time Status Place IV Lock 1T Care 06/20/18 10:32 Active CHEST 2VIEW [RAD] Stat Exams 06/20/18 Ordered BNP [NT-proBNP] Stat Lab 06/20/18 Received CBC/PLATELET/DIFF Routine Lab 06/20/18 Received CKMB Stat Lab 06/20/18 Received CMP Routine Lab 06/20/18 Received CREATINE KINASE Routine Lab 06/20/18 Received TROPONIN I (cTnI) Stat Lab 06/20/18 Received Ipratropium/Albuterol Sulfate [Duoneb] Med 06/20/18 10:32 Discontinued 3 ml NEB NOW ONE methylPREDNISolone SOD SUCC [Solu-MEDROL] Med 06/20/18 10:45 Discontinued 125 mg IVP NOW ONE EKG WITH COMPARISON Stat Ther 06/20/18 Ordered Dyspnea Physical Exam - EXAM General Appearance: moderate distress EENT: eye inspection normal, ENT inspection normal Neck: nml inspection. No: lymphadenopathy Respiratory: respiratory distress, accessory muscle use, decreased air movement, wheezes (end exp. wheeze in the upper posterior lobes), other (lung sounds are tight throughout) CVS: pulses equal, irregularly irreg. rhythm Abdomen: non-tender Skin: pallor, warm, dry Extremities: tenderness (to the left hand (no signs of injury)) Neuro/Psych: oriented x3, motor nml, sensation nml, weakness, other Discharge Clincal Impression: Pneumonia, CHF (congestive heart failure), COPD (chronic obstructive pulmonary disease), A-fib, Type 2 diabetes mellitus, Hypoxemia requiring supplemental oxygen Disposition: ADMITTED INPATIENT Decision to Admit: [id number] Date of Decison to Admit: 06/20/18 Decision Time: 12:10 (Spoke with Dr. Retana)
[2018-06-20 11:22] LABS: eGFR (Non-African) > 60
[2018-06-20] MEDS ORDERED: cefTRIAXone SODIUM 1 GM in 0.9 % SODIUM CHLORIDE(MINIBAG+ 50 ML IV ONE (12:01)
[2018-06-20 12:10] LABS: COLOR,URINE YELLOW (YELLOW)
[2018-06-20 12:11] LABS: APPEARANCE,URINE SLIGHTLY CLOUDY (CLEAR); OCCULT BLOOD,URINE NEGATIVE (NEGATIVE); UROBILINOGEN URINE 0.2 Eu (0.2-1.0)
[2018-06-20 12:54] VITALS: BMI 34.4
--- NOTE | 2018-06-20 13:33 | History and Physical Report ---
History of Present Illnes - History of Present Illness Reason for Visit: dyspnea History of Present Illness: 82yo female with a several day histroy of progressing dyspnea and SOB. Nursing staff felt that she needed to be seen adn patient was taken to the ED for evaluation. Patient was found to have some hypoxia with SAO2 in the mid 80 on oxygen. Patient was felt to be developing a pneumonia on chest x-ray and was admitted to acute care. Patient has a history of COPD and is on chronic oxygen therapy. Patient has had a mild nonproductive cough. 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 Alcohol: Rare Drugs: None Lives: Alone Domestic Violence: Negative - Health Maintenance Health Maintenance: Cholesterol, Influenza Vaccine, Pneumococcal Vaccine Influenza Vaccine: Current for this Influenza Season Pneumonia Vaccine: Yes Resuscitation Status: Resusciation Status Resuscitation Status No Anti-Arrhythmics,No Prolong Resuscitation - Unable to Obtain History Unable to Obtain: No (Record from [facility] on Chart) Review of Systems - Review of Systems Constitutional: Weakness Eyes: negative: conjunctivae inflammation, redness ENT: negative: Ear Pain, Nose Discharge, Throat Pain Respiratory: Cough, Shortness of Breath, SOB with Excertion, Wheezing Cardiovascular: negative: Chest Pain, Light Headedness Gastrointestinal: negative: Nausea, Vomiting, Diarrhea Genitourinary: Incontinence (stress incontinence) Musculoskeletal: Hand Pain (left hand sore) Skin: negative: Rash Neurological: Weakness, Confusion (mild confusion- has dementia) - Medications/Allergies Allergies/Adverse Reactions: Allergies Allergy/AdvReac Type Severity Reaction Status Date / Time pravastatin Allergy Unknown Verified 06/20/18 13:42 Home Medications: Home Medications Acetaminophen [Tylenol] 2 tab PO PRN PRN 06/20/18 Atorvastatin Calcium 1 tab PO HS 06/20/18 Metformin HCl [Glucophage] 1 tab PO DAILY 06/20/18 Psyllium Husk [Metamucil] 1 cap PO Q4-6 06/20/18 Current Inpatient Medications: Current Inpatient Medications Albuterol/Ipratropium (Duoneb) 3 ml NEB Q4 [facility] Apixaban (Eliquis) 5 mg PO BID [facility] Atorvastatin Calcium (Lipitor) 40 mg PO HS [facility] Diltiazem HCl (Cardizem Cd) 240 mg PO DAILY [facility] Furosemide (Lasix) 20 mg IVP QD [facility] Azithromycin 500 mg/ Sodium (Chloride) 250 mls @ 125 mls/hr IV Q24H [facility] Stop: 06/30/18 13:59 Ceftriaxone Sodium 1 gm/ (Sodium Chloride) 50 mls @ 100 mls/hr IV DAILY [facility] Memantine (Namenda) 5 mg PO HS [facility] Metformin HCl (Glucophage) 500 mg PO [id number] [facility] Metoprolol Tartrate (Lopressor) 25 mg PO BID [facility] Potassium Chloride (Klor-Con 10) 10 meq PO DAILY [facility] Fluticasone/Salmeterol (Advair 250-50 Diskus) 1 each IH BID [facility] Sodium Chloride (Normal Saline Flush) 3 ml IV BID [facility] Exam - Exam Vital Signs: Vital Signs (72 hours) 06/20/18 06/20/18 06/20/18 10:30 12:10 12:45 Temperature 97.3 F L Pulse Rate [ 87 65 Left Pulse ox] Pulse Rate [ 80 Left] Respiratory 20 16 28 H Rate Blood Pressure 160/87 [Left Arm] Blood Pressure 127/89 162/124 [Right Arm] O2 Sat by Pulse 87 L 94 94 Oximetry 06/20/18 12:49 Temperature 97.3 F L Pulse Rate [ Left Pulse ox] Pulse Rate [ 80 Left] Respiratory 28 H Rate Blood Pressure 160/87 [Left Arm] Blood Pressure [Right Arm] O2 Sat by Pulse 94 Oximetry General: Alert, Oriented to Person, Oriented to Place, Cooperative, Moderate distress (with exertion becomes dyspneic) HEENT: PERRLA, Other (oral mucous membranes dry from mouth breathing) Neck: Normal Range of Motion. No: Stridor Carotids: No bruit Lungs: Wheezes (end exp wheeze posterior), Decreased Air Movement Cardiovascular: Irregularly Irregular, Atrial Fib Peripheral Edema: generalized R>L of lower extremities Peripheral Pulses: 2+ Abdomen: Normal bowel sounds, Soft, No tenderness Integumentary: Warm, Dry, Pale Extremities: No cyanosis, Normal pulses Neurological: Normal speech (at rest- unable to finish sentence after exertion), Strength Equal Bilat, Sensation intact Psych/Mental Status: Mood NL, Appropriate Affect - Laboratory Results Laboratory Results: Laboratory Results 06/20/18 06/20/18 06/20/18 11:30 Unknown Unknown WBC 15.30 H RBC 4.54 Hgb 13.8 Hct 40.9 MCV 90.0 MCH 30.4 MCHC 33.7 RDW 14.7 H Plt Count 209 Neut % (Auto) 87.4 H Lymph % (Auto) 6.8 L [place] % (Auto) 4.2 Eos % (Auto) 1.0 Baso % (Auto) 0.6 Neut # (Auto) 13.4 H Lymph # (Auto) 1.0 [place] # (Auto) 0.6 Eos # (Auto) 0.2 Baso # (Auto) 0.1 Sodium 134 L Potassium 4.4 Chloride 92 L Carbon Dioxide 29 BUN 12 Creatinine 0.82 Estimated Creat Clear 70 Est GFR ( Amer) > 60 Est GFR (Non-Af Amer) > 60 Glucose 131 H Calcium 8.6 Total Bilirubin 1.1 AST 22 ALT 20 Alkaline Phosphatase 86 Creatine Kinase 46 CK-MB (CK-2) Troponin I NT-Pro-B Natriuret Pep Total Protein 6.1 L Albumin 3.7 Urine Color Yellow Urine Appearance Slightly cloudy H Urine pH 7.0 Ur Specific [place] 1.010 Urine Protein Negative Urine Ketones Negative Urine Occult Blood Negative Urine Nitrite Positive H Urine Bilirubin Negative Urine Urobilinogen 0.2 Ur Leukocyte Esterase Trace H Urine Glucose Negative 06/20/18 Unknown WBC RBC Hgb Hct MCV MCH MCHC RDW Plt Count Neut % (Auto) Lymph % (Auto) [place] % (Auto) Eos % (Auto) Baso % (Auto) Neut # (Auto) Lymph # (Auto) [place] # (Auto) Eos # (Auto) Baso # (Auto) Sodium Potassium Chloride Carbon Dioxide BUN Creatinine Estimated Creat Clear Est GFR ( Amer) Est GFR (Non-Af Amer) Glucose Calcium Total Bilirubin AST ALT Alkaline Phosphatase Creatine Kinase CK-MB (CK-2) 2.4 Troponin I < 0.03 L NT-Pro-B Natriuret Pep 5112.2 H Total Protein Albumin Urine Color Urine Appearance Urine pH Ur Specific [place] Urine Protein Urine Ketones Urine Occult Blood Urine Nitrite Urine Bilirubin Urine Urobilinogen Ur Leukocyte Esterase Urine Glucose Assessment/Plan - Assessment/Plan (1) Hypoxemia requiring supplemental oxygen Status: Acute Current Visit: Yes Plan: Will give scheduled HFN treatments- will remain on oxygen to keep sats > 93% (2) Pneumonia Status: Acute Current Visit: Yes Qualifiers: Pneumonia type: due to unspecified organism Plan: Will treat with IV antibiotics x 2, Incentive spirometry, scheduled breathing treatments every 4 hours, and oxygen to keep sats > 93% (3) A-fib Status: Chronic Current Visit: Yes Qualifiers: Atrial fibrillation type: chronic Qualified Code(s): I48.2 - Chronic atrial fibrillation Plan: Will continue anticoagulation therapy and monitor VS every 4 hours (4) CHF (congestive heart failure) Status: Chronic Current Visit: Yes Qualifiers: Plan: Will give lasix 20mg IVP daily- will monitor I & O and lab work- will get vitals every 4 hours (5) COPD (chronic obstructive pulmonary disease) Status: Chronic Current Visit: Yes Qualifiers: COPD type: COPD with acute exacerbation Qualified Code(s): J44.1 - Chronic obstructive pulmonary disease with (acute) exacerbation Plan: Will give Solu Medrol 80 mg IV q 12hrs, scheduled HFN treatments, supplemental o xygen, and use of incentive spirometer- will have nursing check vitals with pulse ox every 4 hours (6) Type 2 diabetes mellitus Status: Chronic Current Visit: Yes Qualifiers: Diabetes mellitus exterminator termite insulin use: without exterminator termite use Diabetes mellitus complication status: with hyperglycemia Qualified Code(s): E11.65 - Type 2 diabetes mellitus with hyperglycemia Plan: Will implement sliding scale insulin due to pneumonia and initiation of IV steroids- pt will be on a JESSICA/NCS diet. (7) Chronic anticoagulation Status: Chronic Current Visit: No Plan: Will continue with Eliquis as ordered (8) Essential hypertension Status: Chronic Current Visit: No Plan: Will monitor blood pressure every 4 hrs and prn- will continue with home medications VTE Assessment - RISK FACTOR SCORE VTE RISK FACTOR SCORES: AGE OVER 60 YEARS, ACUTE INFECTION OTHER THEN SEPSIS, OBESITY - RISK VTE HIGH RISK: SCORE OF 3-4 (RISK PROXIMAL DVT 4-8%) PROPHYLAXIS NEEDED (Pt is on Eliquis 5 mg BID)
[2018-06-20] MEDS ORDERED: FUROSEMIDE 20 MG/2 ML VIAL ONE (13:45)
[2018-06-20] MEDS: IPRATROPIUM/ALBUTEROL SULFATE 3 ML AMPUL.NEB NEB SCH ×3 (13:55→21:10)
[2018-06-20] MEDS: FUROSEMIDE 20 MG/2 ML VIAL IVP SCH (13:56)
[2018-06-20] MEDS: AZITHROMYCIN 500 MG in 0.9 % SODIUM CHLORIDE 250 ML IV SCH (15:09)
[2018-06-20] MEDS: INSULIN REGULAR, HUMAN 100 UNIT/ML 3ML VIAL SQ SCH (17:10)
[2018-06-20] MEDS: methylPREDNISolone SOD SUCC 40 MG/ML VIAL IVP SCH (21:14)
[2018-06-20] MEDS: FLUTICASONE/SALMETEROL 250-50 INHALER IH SCH (21:59)
[2018-06-20] MEDS: ATORVASTATIN CALCIUM 20 MG TABLET PO SCH (22:01)
[2018-06-20] MEDS: METOPROLOL TARTRATE 25 MG TABLET PO SCH (22:01)
[2018-06-20] MEDS: MEMANTINE HCL 10 MG TABLET PO SCH (22:02)
[2018-06-20] MEDS: APIXABAN 2.5 MG TABLET PO SCH (22:02)
[2018-06-20] MEDS: SALINE FLUSH 10 ML DISP.SYRIN IV SCH (22:03)
[2018-06-21] MEDS: IPRATROPIUM/ALBUTEROL SULFATE 3 ML AMPUL.NEB NEB SCH ×6 (01:29→22:13)
--- NOTE | 2018-06-21 03:58 | Diagnostic Imaging Report ---
SCOT ORANTES [facility] [id number] [facility].[address] [address] Report Submission Date: Jun 20, 2018 11:27:20 AM COMPOSING MACHINE OPERATOR Patient Study Name: MIRANDA HENDRICKSON Date: Jun 20, 2018 10:56:34 AM COMPOSING MACHINE OPERATOR Modality Type: DX Gender: F Description: CHEST 2VIEW : 37 Institution: [facility] Physician: SCOT ORANTES "Exam: Chest 2 views. History: Shortness of breath. Cough. The examination is compared to a study dated December 18, 2017. Lung torres are very well aerated. Perihilar infiltrates are noted. No consolidation or effusions are seen. Cardiomegaly is stable with atherosclerotic plaque seen in the aorta. Degenerative changes in thoracic spine are noted. Impression: Perihilar infiltrates. Stable cardiomegaly. Electronically signed on Jun 20, 2018 11:27:20 AM COMPOSING MACHINE OPERATOR by: Ismael MCKENNA
--- NOTE | 2018-06-21 05:35 | Inpatient Progress Note ---
Subjective - Required Recertification Statement I anticipate X number of days because-include discharge plan: 2 - Review of Systems Events since last encounter: Patient has been receiving scheduled HFN treatments and IV antibiotics- she was a little confused this morning during rounds- she is not sure why she is still here- easily redirected- she continues to have exertional dyspnea- however, she seems to be doing better this morning. General: Fatigue HEENT: Denies: Head Aches, Sinus Congestion, Sore Throat Pulmonary: Dyspnea, Cough Cardiovascular: Denies: Chest Pain, Palpitations Gastrointestinal: Denies: Nausea, Vomiting, Abdominal Pain Genitourinary: Incontinence (stress incontinence). Denies: Dysuria Musculoskeletal: Denies: Back Pain Neurological: Weakness, Confusion (hx of dementia) Objective - Exam Vitals and I&O: Vital Signs Temp 98.1 F 06/21/18 01:55 Pulse 81 06/21/18 02:00 Resp 18 06/21/18 02:00 BP 113/61 06/21/18 01:55 Pulse Ox 95 06/21/18 02:00 Intake & Output 06/20/18 06/20/18 06/21/18 11:59 23:59 11:59 Intake Total 300 Balance 300 Weight 70.307 kg 85.275 kg Intake: Oral 300 Other: Voiding Method Toilet Toilet # Voids 1 # Bowel Movements 0 General: Alert, Oriented to Person, Oriented to Place, Cooperative, Mild distress, Obese HEENT: PERRLA, Mouth Mucous membr. moist/[place], Nose Mucous membr. moist/[place] Neck: Supple, +2 carotid pulse wo bruit Lungs: Normal air movement, Speaks full Sentences, Rhonchi (scattered rhochi throughout) Cardiovascular: Irregularly Irregular Abdomen: Normal bowel sounds, Soft, No tenderness Extremities: No cyanosis, Normal pulses Skin: Warm, Dry, Pale Neurological: Normal speech, Strength Equal Bilat, Sensation intact Psych/Mental Status: Mood NL, Appropriate Affect - Results Results: Laboratory Results WBC 15.30 K/ul (4.00-12.00) H 06/20/18 Unknown RBC 4.54 M/ul (3.90-5.20) 06/20/18 Unknown Hgb 13.8 g/dL (12.0-16.0) 06/20/18 Unknown Hct 40.9 % (34.5-46.5) 06/20/18 Unknown MCV 90.0 fl (80.0-100.0) 06/20/18 Unknown MCH 30.4 pg (28.0-34.0) 06/20/18 Unknown MCHC 33.7 g/dL (30.0-36.0) 06/20/18 Unknown RDW 14.7 % (11.3-14.3) H 06/20/18 Unknown Plt Count 209 K/mm3 (130-400) 06/20/18 Unknown Neut % (Auto) 87.4 % (39.0-79.0) H 06/20/18 Unknown Lymph % (Auto) 6.8 % (16.0-50.0) L 06/20/18 Unknown [place] % (Auto) 4.2 % (0.0-11.0) 06/20/18 Unknown Eos % (Auto) 1.0 % (0.0-6.8) 06/20/18 Unknown Baso % (Auto) 0.6 (0.0-1.5) 06/20/18 Unknown Neut # (Auto) 13.4 # k/uL (1.4-7.7) H 06/20/18 Unknown Lymph # (Auto) 1.0 # k/uL (0.6-4.0) 06/20/18 Unknown [place] # (Auto) 0.6 # k/uL (0.0-0.9) 06/20/18 Unknown Eos # (Auto) 0.2 # k/uL (0.0-0.6) 06/20/18 Unknown Baso # (Auto) 0.1 # k/uL (0.0-0.5) 06/20/18 Unknown Sodium 134 mmol/L (136-145) L 06/20/18 Unknown Potassium 4.4 mmol/L (3.5-5.1) 06/20/18 Unknown Chloride 92 mmol/L (98-107) L 06/20/18 Unknown Carbon Dioxide 29 mmol/L (22-30) 06/20/18 Unknown BUN 12 mg/dL (7-17) 06/20/18 Unknown Creatinine 0.82 mg/dL (0.52-1.04) 06/20/18 Unknown Estimated Creat Clear 70 06/20/18 Unknown Est GFR ( Amer) > 60 (60-) 06/20/18 Unknown Est GFR (Non-Af Amer) > 60 (60-) 06/20/18 Unknown Glucose 131 mg/dL (74-106) H 06/20/18 Unknown Calcium 8.6 mg/dL (8.4-10.2) 06/20/18 Unknown Total Bilirubin 1.1 mg/dL (0.2-1.3) 06/20/18 Unknown AST 22 U/L (15-46) 06/20/18 Unknown ALT 20 U/L (13-69) 06/20/18 Unknown Alkaline Phosphatase 86 U/L (38-126) 06/20/18 Unknown Creatine Kinase 46 U/L (30-135) 06/20/18 Unknown CK-MB (CK-2) 2.4 ng/mL (0.0-5.6) 06/20/18 Unknown Troponin I < 0.03 ng/mL (0.03-0.06) L 06/20/18 Unknown NT-Pro-B Natriuret Pep 5112.2 pg/mL (15.0-450.0) H 06/20/18 Unknown Total Protein 6.1 g/dL (6.3-8.2) L 06/20/18 Unknown Albumin 3.7 g/dL (3.5-5.0) 06/20/18 Unknown Urine Color Yellow (YELLOW) 06/20/18 11:30 Urine Appearance Slightly cloudy (CLEAR) H 06/20/18 11:30 Urine pH 7.0 (5.0 - 8.0) 06/20/18 11:30 Ur Specific [place] 1.010 (1.010-1.030) 06/20/18 11:30 Urine Protein Negative mg/dL (NEGATIVE) 06/20/18 11:30 Urine Ketones Negative mg/dL (NEGATIVE) 06/20/18 11:30 Urine Occult Blood Negative (NEGATIVE) 06/20/18 11:30 Urine Nitrite Positive (NEGATIVE) H 06/20/18 11:30 Urine Bilirubin Negative (NEGATIVE) 06/20/18 11:30 Urine Urobilinogen 0.2 Eu (0.2-1.0) 06/20/18 11:30 Ur Leukocyte Esterase Trace (NEGATIVE) H 06/20/18 11:30 Urine Glucose Negative mg/dL (NEGATIVE) 06/20/18 11:30 Assessment/Plan - Assessment/Plan (1) Pneumonia Status: Acute Current Visit: Yes Qualifiers: Pneumonia type: due to unspecified organism Assessment: exertional dyspnea present- scattered rhonchi throughout Plan: Will continue to treat with IV antibiotics x 2, Incentive spirometry, scheduled breathing treatments every 4 hours, and oxygen to keep sats > 93% (2) CHF (congestive heart failure) Status: Chronic Current Visit: Yes Qualifiers: Assessment: generalized lower extremity swelling- minimal, Vital signs are stable Plan: Will continue to give lasix 20mg IVP daily- will monitor I & O and lab work- will get vitals every 4 (3) COPD (chronic obstructive pulmonary disease) Status: Chronic Current Visit: Yes Qualifiers: COPD type: COPD with acute exacerbation Qualified Code(s): J44.1 - Chronic obstructive pulmonary disease with (acute) exacerbation Assessment: scattered rhonchi throughout- exertional dyspnea Plan: Will continue to give Solu Medrol 80 mg IV q 12hrs, scheduled HFN treatments, supplemental oxygen, and use of incentive spirometer- will have nursing check vitals with pulse ox every 4 hours (4) A-fib Status: Chronic Current Visit: Yes Qualifiers: Atrial fibrillation type: chronic Qualified Code(s): I48.2 - Chronic atrial fibrillation Assessment: Rate controlled Plan: Will continue anticoagulation therapy and monitor VS every 4 hours (5) Type 2 diabetes mellitus Status: Chronic Current Visit: Yes Qualifiers: Diabetes mellitus adjunct faculty for medical terminology insulin use: without adjunct faculty for medical terminology use Diabetes loraine litus complication status: with hyperglycemia Qualified Code(s): E11.65 - Type 2 diabetes mellitus with hyperglycemia Assessment: Blood sugars have been elevated- will continue with sliding scale insulin Plan: Patient on sliding scale insulin due to pneumonia and initiation of IV steroids- pt will be on a JESSICA/NCS diet. (6) Alzheimer's dementia Status: Chronic Current Visit: No Qualifiers: Alzheimer's disease onset: late-onset Dementia behavioral disturbance: without behavioral disturbance Qualified Code(s): G30.1 - Alzheimer's disease with late onset; F02.80 - Dementia in other diseases classified elsewhere without behavioral disturbance Assessment: Mild confusion- redirects easily Plan: Will continue with home meds- bed alarms on (7) Essential hypertension Status: Chronic Current Visit: No Assessment: Blood pressure stable Plan: Will continue with home medication
[2018-06-21 07:02] LABS: eGFR (Non-African) > 60
[2018-06-21] MEDS: FLUTICASONE/SALMETEROL 250-50 INHALER IH SCH ×2 (08:47→20:43)
[2018-06-21] MEDS: SALINE FLUSH 10 ML DISP.SYRIN IV SCH ×2 (08:48→20:45)
[2018-06-21] MEDS: METOPROLOL TARTRATE 25 MG TABLET PO SCH ×2 (08:48→20:45)
[2018-06-21] MEDS: POTASSIUM CHLORIDE 10 MEQ TABLET.ER PO SCH (08:48)
[2018-06-21] MEDS: DILTIAZEM HCL 120 MG CAP.ER.24H PO SCH (08:48)
[2018-06-21] MEDS: APIXABAN 2.5 MG TABLET PO SCH ×2 (08:48→20:44)
[2018-06-21] MEDS: INSULIN REGULAR, HUMAN 100 UNIT/ML 3ML VIAL SQ SCH ×3 (08:49→17:27)
[2018-06-21] MEDS: cefTRIAXone SODIUM 1 GM in 0.9 % SODIUM CHLORIDE(MINIBAG+ 50 ML IV SCH (08:49)
[2018-06-21] MEDS: FUROSEMIDE 20 MG/2 ML VIAL IVP SCH (09:02)
[2018-06-21] MEDS: methylPREDNISolone SOD SUCC 40 MG/ML VIAL IVP SCH ×2 (09:02→22:02)
[2018-06-21] MEDS: AZITHROMYCIN 500 MG in 0.9 % SODIUM CHLORIDE 250 ML IV SCH (13:40)
[2018-06-21] MEDS: MEMANTINE HCL 10 MG TABLET PO SCH (20:44)
[2018-06-21] MEDS: ATORVASTATIN CALCIUM 20 MG TABLET PO SCH (20:44)
[2018-06-22] MEDS: IPRATROPIUM/ALBUTEROL SULFATE 3 ML AMPUL.NEB NEB SCH ×7 (02:18→21:33)
[2018-06-22] MEDS: INSULIN REGULAR, HUMAN 100 UNIT/ML 3ML VIAL SQ SCH ×3 (07:33→16:35)
--- NOTE | 2018-06-22 07:51 | Inpatient Progress Note ---
Subjective - Required Recertification Statement I anticipate X number of days because-include discharge plan: 1 - Review of Systems Events since last encounter: Patient is doing much better- she is up to the bathroom with minimal shortness of breath- she is still requiring supplemental oxygen- lungs have greatly improved and are clear- heart is irregular with a controlled rate. General: Denies: Chills, Night Sweats HEENT: Denies: Head Aches, Eye Pain, Ear Pain Pulmonary: Dyspnea (much improved), Cough (non-productive) Cardiovascular: Denies: Chest Pain, Edema, Light Headedness Gastrointestinal: Denies: Nausea, Vomiting, Abdominal Pain Genitourinary: Denies: Dysuria Musculoskeletal: Denies: Back Pain Neurological: Denies: Weakness Objective - Exam Vitals and I&O: Vital Signs Temp 97.5 F L 06/22/18 05:44 Pulse 83 06/22/18 05:45 Resp 24 06/22/18 05:45 BP 129/73 06/22/18 05:44 Pulse Ox 99 06/22/18 05:44 Intake & Output 06/21/18 06/21/18 06/22/18 11:59 23:59 11:59 Intake Total 360 240 Output Total 1200 Balance -840 240 Intake: Oral 360 240 Output: Urine 1200 Other: Voiding Method Toilet Toilet Toilet # Voids 3 1 4 # Bowel Movements 0 General: Alert, Oriented to Person, Oriented to Place, Cooperative, No acute distress, Obese HEENT: PERRLA, Mouth Mucous membr. moist/[place], Nose Mucous membr. moist/[place] Neck: Supple, +2 carotid pulse wo bruit Lungs: Clear to auscultation, Normal air movement, Speaks full Sentences Cardiovascular: Irregularly Irregular Abdomen: Normal bowel sounds, Soft, No tenderness Extremities: No edema, Normal pulses, No tenderness/swelling Skin: Normal, [place], Warm, Dry Neurological: Normal gait, Normal speech, Strength Equal Bilat, Sensation intact Psych/Mental Status: Mental status NL, Mood NL, Appropriate Affect, Intact Judgment - Results Results: Laboratory Results WBC 15.30 K/ul (4.00-12.00) H 06/20/18 Unknown RBC 4.54 M/ul (3.90-5.20) 06/20/18 Unknown Hgb 13.8 g/dL (12.0-16.0) 06/20/18 Unknown Hct 40.9 % (34.5-46.5) 06/20/18 Unknown MCV 90.0 fl (80.0-100.0) 06/20/18 Unknown MCH 30.4 pg (28.0-34.0) 06/20/18 Unknown MCHC 33.7 g/dL (30.0-36.0) 06/20/18 Unknown RDW 14.7 % (11.3-14.3) H 06/20/18 Unknown Plt Count 209 K/mm3 (130-400) 06/20/18 Unknown Neut % (Auto) 87.4 % (39.0-79.0) H 06/20/18 Unknown Lymph % (Auto) 6.8 % (16.0-50.0) L 06/20/18 Unknown Prentiss % (Auto) 4.2 % (0.0-11.0) 06/20/18 Unknown Eos % (Auto) 1.0 % (0.0-6.8) 06/20/18 Unknown Baso % (Auto) 0.6 (0.0-1.5) 06/20/18 Unknown Neut # (Auto) 13.4 # k/uL (1.4-7.7) H 06/20/18 Unknown Lymph # (Auto) 1.0 # k/uL (0.6-4.0) 06/20/18 Unknown Prentiss # (Auto) 0.6 # k/uL (0.0-0.9) 06/20/18 Unknown Eos # (Auto) 0.2 # k/uL (0.0-0.6) 06/20/18 Unknown Baso # (Auto) 0.1 # k/uL (0.0-0.5) 06/20/18 Unknown Sodium 135 mmol/L (136-145) L 06/21/18 06:00 Potassium 4.2 mmol/L (3.5-5.1) 06/21/18 06:00 Chloride 102 mmol/L (98-107) 06/21/18 06:00 Carbon Dioxide 15 mmol/L (22-30) L 06/21/18 06:00 BUN 31 mg/dL (7-17) H 06/21/18 06:00 Creatinine 0.76 mg/dL (0.52-1.04) 06/21/18 06:00 Estimated Creat Clear 91 06/21/18 06:00 Est GFR ( Amer) > 60 (60-) 06/21/18 06:00 Est GFR (Non-Af Amer) > 60 (60-) 06/21/18 06:00 Glucose 181 mg/dL (74-106) H 06/21/18 06:00 Calcium 8.3 mg/dL (8.4-10.2) L 06/21/18 06:00 Total Bilirubin 1.1 mg/dL (0.2-1.3) 06/20/18 Unknown AST 22 U/L (15-46) 06/20/18 Unknown ALT 20 U/L (13-69) 06/20/18 Unknown Alkaline Phosphatase 86 U/L (38-126) 06/20/18 Unknown Creatine Kinase 46 U/L (30-135) 06/20/18 Unknown CK-MB (CK-2) 2.4 ng/mL (0.0-5.6) 06/20/18 Unknown Troponin I < 0.03 ng/mL (0.03-0.06) L 06/20/18 Unknown NT-Pro-B Natriuret Pep 5112.2 pg/mL (15.0-450.0) H 06/20/18 Unknown Total Protein 6.1 g/dL (6.3-8.2) L 06/20/18 Unknown Albumin 3.7 g/dL (3.5-5.0) 06/20/18 Unknown Urine Color Yellow (YELLOW) 06/20/18 11:30 Urine Appearance Slightly cloudy (CLEAR) H 06/20/18 11:30 Urine pH 7.0 (5.0 - 8.0) 06/20/18 11:30 Ur Specific Mcintosh 1.010 (1.010-1.030) 06/20/18 11:30 Urine Protein Negative mg/dL (NEGATIVE) 06/20/18 11:30 Urine Ketones Negative mg/dL (NEGATIVE) 06/20/18 11:30 Urine Occult Blood Negative (NEGATIVE) 06/20/18 11:30 Urine Nitrite Positive (NEGATIVE) H 06/20/18 11:30 Urine Bilirubin Negative (NEGATIVE) 06/20/18 11:30 Urine Urobilinogen 0.2 Eu (0.2-1.0) 06/20/18 11:30 Ur Leukocyte Esterase Trace (NEGATIVE) H 06/20/18 11:30 Urine Glucose Negative mg/dL (NEGATIVE) 06/20/18 11:30 Assessment/Plan - Assessment/Plan (1) Pneumonia Status: Acute Current Visit: Yes Qualifiers: Pneumonia type: due to unspecified organism Assessment: LCTA, mild distress with lots of exertion- greatly improved Plan: Will continue to treat with IV antibiotics x 2, Incentive spirometry, scheduled breathing treatments every 4 hours, and oxygen to keep sats > 93% (2) CHF (congestive heart failure) Status: Chronic Current Visit: Yes Qualifiers: Assessment: no edema in lower extremities- will stop lasix tomorrow and repeat BUN/Cr prior to discharge Plan: Will continue to give lasix 20mg IVP daily- will monitor I & O and lab work- will get vitals every 4 (3) COPD (chronic obstructive pulmonary disease) Status: Chronic Current Visit: Yes Qualifiers: COPD type: COPD with acute exacerbation Qualified Code(s): J44.1 - Chronic obstructive pulmonary disease with (acute) exacerbation Assessment: LCTA, mild dyspnea with exertion Plan: Will continue to give Solu Medrol 80 mg IV q 12hrs, scheduled HFN treatments, supplemental oxygen, and use of incentive spirometer- will have nursing check vitals with pulse ox every 4 hours (4) A-fib Status: Chronic Current Visit: Yes Qualifiers: Atrial fibrillation type: chronic Qualified Code(s): I48.2 - Chronic atrial fibrillation Assessment: Rate controlled Plan: Will continue anticoagulation therapy and monitor VS every 4 hours (5) Type 2 diabetes mellitus Status: Chronic Current Visit: Yes Qualifiers: 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 (6) Alzheimer's dementia Status: Chronic Current Visit: No Qualifiers: Alzheimer's disease onset: late-onset Dementia behavioral disturbance: without behavioral disturbance Qualified Code(s): G30.1 - Alzheimer's disease with late onset; F02.80 - Dementia in other diseases classified elsewhere without behavioral disturbance Assessment: Mild confusion- redirects easily Plan: Will continue with home meds- bed alarms on (7) Essential hypertension Status: Chronic Current Visit: No Assessment: Blood pressure stable Plan: Will continue with home medication
[2018-06-22] MEDS: FUROSEMIDE 20 MG/2 ML VIAL IVP SCH (09:38)
[2018-06-22] MEDS: methylPREDNISolone SOD SUCC 40 MG/ML VIAL IVP SCH ×2 (09:38→21:31)
[2018-06-22] MEDS: cefTRIAXone SODIUM 1 GM in 0.9 % SODIUM CHLORIDE(MINIBAG+ 50 ML IV SCH (10:21)
[2018-06-22] MEDS: POTASSIUM CHLORIDE 10 MEQ TABLET.ER PO SCH (10:22)
[2018-06-22] MEDS: APIXABAN 2.5 MG TABLET PO SCH ×2 (10:22→21:28)
[2018-06-22] MEDS: DILTIAZEM HCL 120 MG CAP.ER.24H PO SCH (10:22)
[2018-06-22] MEDS: METOPROLOL TARTRATE 25 MG TABLET PO SCH ×2 (10:22→21:28)
[2018-06-22] MEDS: SALINE FLUSH 10 ML DISP.SYRIN IV SCH ×2 (10:23→21:47)
[2018-06-22] MEDS: FLUTICASONE/SALMETEROL 250-50 INHALER IH SCH ×2 (10:23→21:28)
[2018-06-22] MEDS: AZITHROMYCIN 500 MG in 0.9 % SODIUM CHLORIDE 250 ML IV SCH (13:33)
[2018-06-22] MEDS ORDERED: CALCIUM CARB 500 MG TAB.CHEW PO PRN (13:41)
[2018-06-22] MEDS ORDERED: CALCIUM CARB 500 MG TAB.CHEW ONE (13:43)
[2018-06-22] MEDS ORDERED: methylPREDNISolone SOD SUCC 125 MG/2 ML VIAL ONE (21:23)
[2018-06-22] MEDS: ATORVASTATIN CALCIUM 20 MG TABLET PO SCH (21:28)
[2018-06-22] MEDS: MEMANTINE HCL 10 MG TABLET PO SCH (21:29)
[2018-06-23] MEDS: IPRATROPIUM/ALBUTEROL SULFATE 3 ML AMPUL.NEB NEB SCH ×3 (03:18→09:14)
--- NOTE | 2018-06-23 06:43 | Discharge Summary ---
Discharge Summary - Discharge Sumary History of Present Illness: 82yo female with a several day histroy of progressing dyspnea and SOB. Nursing staff felt that she needed to be seen adn patient was taken to the ED for evaluation. Patient was found to have some hypoxia with SAO2 in the mid 80 on oxygen. Patient was felt to be developing a pneumonia on chest x-ray and was admitted to acute care. Patient has a history of COPD and is on chronic oxygen therapy. Patient has had a mild nonproductive cough. Additional Instructions: Spoke with Dr. Retana- we will have [facility] repeat BMP in a couple of days to recheck Sodium. Condition at Discharge: Stable Home Medications: Ambulatory Orders Medication Instructions Recorded RX: Albuterol Sulfate [Proair 1 puff INH Q4-6 PRN 06/01/17 Respiclick] RX: Diltiazem HCl [Diltiazem 24Hr 240 mg PO DAILY 06/01/17 Cd] RX: Fluticasone/Salmeterol [Advair 1 puff INH BID 06/01/17 250-50 Diskus] RX: Ipratropium/Albuterol Sulfate 3 ml NEB Q6 PRN ampul.neb 01/01/18 [Duoneb] Acetaminophen [Tylenol] 2 tab PO PRN PRN 06/20/18 Atorvastatin Calcium 1 tab PO HS 06/20/18 Psyllium Husk [Metamucil] 1 cap PO Q4-6 06/20/18 RX: Metformin HCl [Glucophage] 1 tab PO DAILY 06/20/18 Azithromycin [Zithromax] 250 mg PO DAILY #4 tablet 06/23/18 RX: Cefuroxime Axetil [Ceftin] 250 mg PO BID #20 tablet 06/23/18 RX: predniSONE [Deltasone] 20 mg PO DAILY #5 tablet 06/23/18 Consultations this Visit: None Procedures this Visit: None Allergies/Adverse Reactions: Allergies Allergy/AdvReac Type Severity Reaction Status Date / Time pravastatin Allergy Unknown Verified 06/20/18 13:42 Discharge Summary: Patient is an 82-year-old female that was admitted for pneumonia and COPD. She is feeling much better and tolerating exertion without dyspnea. She has been cooperative with care and treatment provided. Son is aware of patient going back to [facility] today and is okay with the progress his mom has made. We will continue oral antibiotics- and prior home meds. - Final Diagnosis (1) Pneumonia Problems: Stable- will continue patient on oral antibiotics for 10 days Right or Left: Right (2) CHF (congestive heart failure) Problems: Stable- will continue home treatment Right or Left: Right (3) COPD (chronic obstructive pulmonary disease) Problems: Stable- will continue home meds Right or Left: Right (4) A-fib Problems: Rate is stable Right or Left: Right (5) Type 2 diabetes mellitus Problems: Stable- will continue home meds Right or Left: Right (6) Alzheimer's dementia Problems: Stable Right or Left: Right (7) Essential hypertension Problems: Stable with home meds Right or Left: Right
[2018-06-23 07:09] LABS: MEAN CORPUSCULAR HEMOGLOBIN 30.5 pg (28.0-34.0)
[2018-06-23 07:10] LABS: BASOPHILS % 0.2 (0.0-1.5); EOSINOPHILS % 0.9 % (0.0-6.8); NEUTROPHILS # 10.9 # k/uL (1.4-7.7)
[2018-06-23 07:23] LABS: eGFR (Non-African) > 60
--- NOTE | 2018-06-23 07:48 | Diagnostic Imaging Report ---
SCOT ORANTES [facility] [address] [facility].[address] [address] Report Submission Date: Jun 23, 2018 7:28:54 AM CDT Patient Study Name: MIRANDA HENDRICKSON Date: Jun 23, 2018 6:41:02 AM CDT Modality Type: DX Gender: F Description: CHEST 2VIEW : 37 Institution: [facility] Physician: SCOT ORANTES Chest 2 views Date of Exam: June 23, 2018. History: SHORTNESS OF BREATH, PNUEMONIA (Hx) / ITS.REASON recheck CHF (Pt comments) Findings: Comparison with June 20, 2018 again demonstrates cardiomegaly and chronic emphysematous changes. No acute infiltrate or effusion is identified. The trachea is midline. Aortic arch atherosclerotic calcifications are again noted. Impression: Cardiomegaly and chronic emphysematous changes. Electronically signed on Jun 23, 2018 7:28:54 AM CDT by: Heath MCKENNA
[2018-06-23] MEDS: INSULIN REGULAR, HUMAN 100 UNIT/ML 3ML VIAL SQ SCH (07:58)
[2018-06-23] MEDS: SALINE FLUSH 10 ML DISP.SYRIN IV SCH (08:14)
[2018-06-23] MEDS: FLUTICASONE/SALMETEROL 250-50 INHALER IH SCH (09:12)
[2018-06-23] MEDS: DILTIAZEM HCL 120 MG CAP.ER.24H PO SCH (09:12)
[2018-06-23] MEDS: METOPROLOL TARTRATE 25 MG TABLET PO SCH (09:13)
[2018-06-23] MEDS: POTASSIUM CHLORIDE 10 MEQ TABLET.ER PO SCH (09:13)
[2018-06-23] MEDS: APIXABAN 2.5 MG TABLET PO SCH (09:13)
[2018-06-23] MEDS: methylPREDNISolone SOD SUCC 40 MG/ML VIAL IVP SCH (09:14)
[2018-06-23] MEDS: FUROSEMIDE 20 MG/2 ML VIAL IVP SCH (09:15)
[2018-06-23] MEDS: cefTRIAXone SODIUM 1 GM in 0.9 % SODIUM CHLORIDE(MINIBAG+ 50 ML IV SCH (09:15)
[2018-06-23 09:59] VITALS: BP 114/60
== END 2018-06-23 11:00 | disposition home or self-care (01) | DRG 194 ==
LOC: ED 10:30 → SOUTH 12:05
PROVIDERS: ADMIT Family Medicine; ATTEND Family Medicine
DX: J18.9 Pneumonia, unspecified organism (principal); J44.1 Chronic obstructive pulmonary disease with (acute) exacerbation; I48.0 Paroxysmal atrial fibrillation; I50.9 Heart failure, unspecified; E11.9 Type 2 diabetes mellitus without complications; I10 Essential (primary) hypertension; K30 Functional dyspepsia; M25.541 Pain in joints of right hand; G30.1 Alzheimer's disease with late onset; Z79.01 Long term (current) use of anticoagulants
CPT/HCPCS: 71046; 80048; 80053; 81002; 82550; 82553; 83880; 84484; 85025; 87040; 87086; 93005; 96374; 96375; 96376; 99284; J0456; J0696; J1030; J1815; J1940; J2930; J7050; 99222; 99231; 99232; 99238; J2920; S1016

== ENCOUNTER 2018-08-26 14:31 | Inpatient (IN) | payer MEDICARE, OTHER ==
[2018-08-26 14:58] VITALS: BMI 32.1
[2018-08-26] MEDS ORDERED: ALBUTEROL SULFATE INH PRN (18:22)
[2018-08-26] MEDS ORDERED: ACETAMINOPHEN 325 MG TABLET PO PRN (18:22)
[2018-08-26] MEDS ORDERED: PSYLLIUM HUSK PO PRN (18:22)
[2018-08-26] MEDS ORDERED: IPRATROPIUM/ALBUTEROL SULFATE 3 ML AMPUL.NEB NEB PRN (18:22)
[2018-08-26] MEDS ORDERED: ALBUTEROL 90MCG/PUFF INHALER IH PRN (18:29)
--- NOTE | 2018-08-26 18:41 | History and Physical Report ---
History of Present Illnes - History of Present Illness Reason for Visit: gait disturbance following illness History of Present Illness: 82-year-old white female who has a past medical history of hypertension chronic diastolic congestive heart failure, hyperlipidemia, chronic atrial fibrillation on anticoagulation therapy, COPD requiring nocturnal oxygen, diabetes mellitus, chronic kidney disease, and colon cancer. Patient presented to the ED and [facility] complaining of a productive cough of some green phlegm with hypoxia. Chest x-ray was consistent with pulmonary edema with a pleural effusion thought to be related to congestive heart.. Patient had an elevated WBC count of 23,400 and a lactate of 1.8. Patient's BNP was elevated at 5627. Patient was felt to have a pneumonia with congestive heart failure was subsequently admitted to the ICU. Patient was placed in antibiotic therapy of azithromycin ceftriaxone and Zosyn. Blood cultures were drawn but results are still pending at this time. Patient was started on IV Lasix therapy. Patient was started on BiPAP. Patient w as started on IV steroids and bronchodilators. Patient respiratory status did improve. At the time to discharge was felt that the patient was stable but she was weak and was felt that she needed further rehab services in order to have her safely go back to [facility]. Patient was subsequently admitted to this institution for further rehab services. 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 Alcohol: Rare Drugs: None Lives: Alone Domestic Violence: Negative - Health Maintenance Health Maintenance: Cholesterol, Influenza Vaccine, Pneumococcal Vaccine Influenza Vaccine: Current for this Influenza Season Pneumonia Vaccine: Yes Resuscitation Status: Resusciation Status Resuscitation Status No Anti-Arrhythmics,No Prolong Resuscitation Review of Systems - Review of Systems Constitutional: negative: Fever, Chills, Sweats, Weakness Eyes: negative: pain, vision change, conjunctivae inflammation, eyelid inflammation, redness ENT: negative: Ear Pain, Ear Discharge, Nose Pain, Nose Discharge, Nose Congestion, Mouth Pain, Mouth Swelling, Throat Pain, Throat Swelling Respiratory: Cough, Dry. negative: Shortness of Breath, Hemoptysis, SOB with Excertion, Pleuritic Pain, Sputum, Wheezing Cardiovascular: negative: Chest Pain, Palpitations, Orthopnea, Paroxysmal Noc. Dyspnea, Edema, Light Headedness Gastrointestinal: Vomiting. negative: Nausea, Abdominal Pain, Diarrhea, Constipation, Melena, Hematochezia Genitourinary: Dysuria, Frequency, Incontinence. negative: Hematuria (occasioanl stree), Retention Musculoskeletal: Back Pain. negative: Neck Pain, Shoulder Pain Skin: negative: Rash Neurological: negative: Weakness, Numbness, Incoordination, Change in Speech, Confusion - Medications/Allergies Allergies/Adverse Reactions: Allergies Allergy/AdvReac Type Severity Reaction Status Date / Time pravastatin Allergy Unknown Verified 06/20/18 13:42 Current Inpatient Medications: Current Inpatient Medications Acetaminophen (Tylenol) mg PO PRN PRN PRN Reason: Fever > 102 Albuterol Sulfate (Ventolin Hfa) 2 puff IH Q4H PRN PRN Reason: Bronchodialation Albuterol/Ipratropium (Duoneb) 3 ml NEB Q6 PRN PRN Reason: Wheezing Albuterol/Ipratropium (Duoneb) 3 ml NEB Q4 PRN PRN Reason: Wheezing Apixaban (Eliquis) 5 mg PO BID GIORGIO Atorvastatin Calcium (Lipitor) 40 mg PO HS GIORGIO Diltiazem HCl (Cardizem Cd) 240 mg PO DAILY [facility] Furosemide (Lasix) 40 mg PO DAILY GIORGIO Memantine (Namenda) 10 mg PO HS GIORGIO Metformin HCl (Glucophage) mg PO DAILY GIORGIO Miscellaneous (Albuterol Sulfate [Proair Respiclick]) 1 puff INH Q4-6 PRN PRN Reason: shortness of breath Miscellaneous (Atorvastatin Calcium [Atorvastatin Calcium]) 1 tab PO HS GIORGIO Miscellaneous (Budesonide/Formoterol Fumarate [Symbicort 80-4.5 Mcg Inhaler]) 2 puff IH BID GIORGIO Miscellaneous (Diltiazem Hcl [Diltiazem 24hr Cd]) 240 mg PO DAILY GIORGIO Miscellaneous (Memantine Hcl [Namenda]) 5 mg PO DAILY GIORGIO Miscellaneous (Potassium Chloride [Klor-Con M10]) 10 meq PO DAILY GIORGIO Miscellaneous (Psyllium Husk [Metamucil]) 1 cap PO Q4-6 PRN PRN Reason: Constipation Potassium Chloride (Klor-Con 10) 10 meq PO DAILY GIORGIO Psyllium Husk (Metamucil) 1 each PO 1100 GIORGIO Exam - Exam Vital Signs: Vital Signs (72 hours) 08/26/18 08/26/18 14:55 14:56 Temperature 97.3 F L 97.3 F L Pulse Rate [ 79 79 Right] Respiratory 20 20 Rate Blood Pressure 121/75 [Left Arm] Blood Pressure 131/65 131/65 [Right Arm] O2 Sat by Pulse 91 L 91 L Oximetry General: Alert, Oriented to Person, Oriented to Place, Oriented to Time, Cooperative HEENT: Atraumatic, PERRLA, EOMI, Mouth Mucous membr. moist/[place], Nose Mucous membr. moist/[place] Neck: Normal Range of Motion Lungs: Clear to auscultation, Normal air movement, Speaks full Sentences, Rhonchi Cardiovascular: Normal S1, Normal S2, No murmurs, Irregularly Irregular Abdomen: Normal bowel sounds, Soft, No tenderness, No hepatospenomegaly, No masses Integumentary: Normal, [place], Warm, Dry Extremities: No clubbing, No cyanosis, No edema, Normal pulses, No tenderness/swelling Neurological: Normal gait, Normal speech, Strength Equal Bilat, Normal tone, Sensation intact, Cranial nerves 3-12 NL, Reflexes 2+ Psych/Mental Status: Mental status NL, Mood NL, Appropriate Affect, Intact Judgment Assessment/Plan - Assessment/Plan (1) Gait disturbance Status: Acute Current Visit: No Assessment: Patient will have physical and occupational therapy consult done. (2) A-fib Status: Chronic Current Visit: No Qualifiers: Atrial fibrillation type: chronic Qualified Code(s): I48.2 - Chronic atrial fibrillation Assessment: Continue with home meds. (3) Alzheimer's dementia Status: Chronic Current Visit: No Qualifiers: Alzheimer's disease onset: late-onset Dementia behavioral disturbance: without behavioral disturbance Qualified Code(s): G30.1 - Alzheimer's disease with late onset; F02.80 - Dementia in other diseases classified elsewhere without behavioral disturbance Assessment: Continue with home meds. (4) CHF (congestive heart failure) Status: Chronic Current Visit: No Qualifiers: Heart failure chronicity: acute on chronic Assessment: Continue with current medications. (5) COPD (chronic obstructive pulmonary disease) Status: Chronic Current Visit: No (6) Chronic anticoagulation Status: Chronic Current Visit: No Assessment: Continue with current medications. (7) Essential hypertension Status: Chronic Current Visit: No Assessment: Continue with home with (8) Type 2 diabetes mellitus Status: Chronic Current Visit: No Qualifiers: Diabetes mellitus termite control technician insulin use: without skilled nursing use Diabetes mellitus complication status: with hyperglycemia Qualified Code(s): E11.65 - Type 2 diabetes mellitus with hyperglycemia Assessment: Continue with home withWill monitor the patient blood sugars. VTE Assessment - RISK FACTOR SCORE VTE RISK FACTOR SCORES: AGE OVER 60 YEARS, ACUTE INFECTION OTHER THEN SEPSIS, CONGESTIVE HEART FAILURE OR MYOCARDIAL INFARCTION - RISK VTE MODERATE RISK: SCORE OF 2 (RISK PROXIMAL DVT 2-4%) PROPHYAXIS NEEDED (on Eliquis)
[2018-08-26] MEDS: FLUTICASONE/SALMETEROL 250-50 INHALER IH SCH (20:58)
[2018-08-26] MEDS: ATORVASTATIN CALCIUM 20 MG TABLET PO SCH (20:59)
[2018-08-26] MEDS: APIXABAN 5 MG TABLET PO SCH (20:59)
[2018-08-26] MEDS: MEMANTINE HCL 10 MG TABLET PO SCH (20:59)
[2018-08-26] MEDS ORDERED: ATORVASTATIN CALCIUM PO SCH (21:00)
[2018-08-26] MEDS ORDERED: [UNRECOGNIZED DRUG - OTHER] IH SCH (21:00)
[2018-08-26] MEDS ORDERED: BUDESONIDE IH SCH (21:00)
[2018-08-26] MEDS ORDERED: FORMOTEROL FUMARATE IH SCH (21:00)
[2018-08-27] MEDS: INSULIN REGULAR, HUMAN 100 UNIT/ML 10ML VIAL SQ SCH ×3 (07:22→16:55)
[2018-08-27] MEDS: FUROSEMIDE 40 MG TABLET PO SCH (08:53)
[2018-08-27] MEDS: APIXABAN 5 MG TABLET PO SCH ×2 (08:53→20:22)
[2018-08-27] MEDS: metFORMIN HCl 500 MG TABLET PO SCH (08:54)
[2018-08-27] MEDS: POTASSIUM CHLORIDE 10 MEQ TABLET.ER PO SCH (08:54)
[2018-08-27] MEDS: FLUTICASONE/SALMETEROL 250-50 INHALER IH SCH ×2 (08:55→20:22)
[2018-08-27] MEDS ORDERED: POTASSIUM CHLORIDE 10 MEQ PO SCH (09:00)
[2018-08-27] MEDS ORDERED: DILTIAZEM HCL 240 MG PO SCH (09:00)
[2018-08-27] MEDS ORDERED: MEMANTINE HCL 5 MG PO SCH (09:00)
[2018-08-27] MEDS: ASPARTAME PO SCH (11:22)
[2018-08-27] MEDS: PSYLLIUM HUSK PO SCH (11:22)
[2018-08-27] MEDS: IPRATROPIUM/ALBUTEROL SULFATE 3 ML AMPUL.NEB NEB PRN (13:00)
[2018-08-27] MEDS: MEMANTINE HCL 10 MG TABLET PO SCH (20:23)
[2018-08-27] MEDS: ATORVASTATIN CALCIUM 20 MG TABLET PO SCH (20:23)
[2018-08-28] MEDS: INSULIN REGULAR, HUMAN 100 UNIT/ML 10ML VIAL SQ SCH ×3 (07:21→16:05)
[2018-08-28] MEDS: FLUTICASONE/SALMETEROL 250-50 INHALER IH SCH ×2 (08:19→20:14)
[2018-08-28] MEDS: metFORMIN HCl 500 MG TABLET PO SCH (08:20)
[2018-08-28] MEDS: POTASSIUM CHLORIDE 10 MEQ TABLET.ER PO SCH (08:20)
[2018-08-28] MEDS: APIXABAN 5 MG TABLET PO SCH ×2 (08:20→20:13)
[2018-08-28] MEDS: FUROSEMIDE 40 MG TABLET PO SCH (08:21)
[2018-08-28] MEDS: PSYLLIUM HUSK PO SCH (11:32)
[2018-08-28] MEDS: ASPARTAME PO SCH (11:32)
[2018-08-28] MEDS: MEMANTINE HCL 10 MG TABLET PO SCH (20:13)
[2018-08-28] MEDS: ATORVASTATIN CALCIUM 20 MG TABLET PO SCH (20:13)
[2018-08-28] MEDS: L. ACIDOPHILUS/LACTOBAC SPOR 1 EACH CAP PO SCH (21:48)
[2018-08-29] MEDS: APIXABAN 5 MG TABLET PO SCH ×2 (08:15→21:36)
[2018-08-29] MEDS: FLUTICASONE/SALMETEROL 250-50 INHALER IH SCH ×2 (08:15→21:38)
[2018-08-29] MEDS: metFORMIN HCl 500 MG TABLET PO SCH (08:15)
[2018-08-29] MEDS: FUROSEMIDE 40 MG TABLET PO SCH (08:15)
[2018-08-29] MEDS: POTASSIUM CHLORIDE 10 MEQ TABLET.ER PO SCH (08:15)
[2018-08-29] MEDS: L. ACIDOPHILUS/LACTOBAC SPOR 1 EACH CAP PO SCH (08:16)
[2018-08-29] MEDS: INSULIN REGULAR, HUMAN 100 UNIT/ML 10ML VIAL SQ SCH ×3 (08:22→17:07)
[2018-08-29] MEDS: PSYLLIUM HUSK PO SCH (11:32)
[2018-08-29] MEDS: ASPARTAME PO SCH (11:32)
[2018-08-29] MEDS: IPRATROPIUM/ALBUTEROL SULFATE 3 ML AMPUL.NEB NEB PRN (12:30)
[2018-08-29] MEDS: ATORVASTATIN CALCIUM 20 MG TABLET PO SCH (21:36)
[2018-08-29] MEDS: MEMANTINE HCL 10 MG TABLET PO SCH (21:36)
[2018-08-30] MEDS: INSULIN REGULAR, HUMAN 100 UNIT/ML 10ML VIAL SQ SCH ×3 (08:33→17:32)
[2018-08-30] MEDS: POTASSIUM CHLORIDE 10 MEQ TABLET.ER PO SCH (09:19)
[2018-08-30] MEDS: FUROSEMIDE 40 MG TABLET PO SCH (09:19)
[2018-08-30] MEDS: L. ACIDOPHILUS/LACTOBAC SPOR 1 EACH CAP PO SCH (09:19)
[2018-08-30] MEDS: APIXABAN 5 MG TABLET PO SCH ×2 (09:19→20:06)
[2018-08-30] MEDS: metFORMIN HCl 500 MG TABLET PO SCH (09:19)
[2018-08-30] MEDS: FLUTICASONE/SALMETEROL 250-50 INHALER IH SCH ×2 (09:22→20:05)
[2018-08-30] MEDS: PSYLLIUM HUSK PO SCH (12:11)
[2018-08-30] MEDS: ASPARTAME PO SCH (12:11)
[2018-08-30] MEDS: MEMANTINE HCL 10 MG TABLET PO SCH (20:06)
[2018-08-30] MEDS: ATORVASTATIN CALCIUM 20 MG TABLET PO SCH (20:06)
[2018-08-31] MEDS: INSULIN REGULAR, HUMAN 100 UNIT/ML 10ML VIAL SQ SCH ×3 (07:34→17:16)
[2018-08-31] MEDS: ASPARTAME PO SCH (10:53)
[2018-08-31] MEDS: APIXABAN 5 MG TABLET PO SCH ×2 (10:53→20:05)
[2018-08-31] MEDS: POTASSIUM CHLORIDE 10 MEQ TABLET.ER PO SCH (10:53)
[2018-08-31] MEDS: FUROSEMIDE 40 MG TABLET PO SCH (10:53)
[2018-08-31] MEDS: PSYLLIUM HUSK PO SCH (10:53)
[2018-08-31] MEDS: L. ACIDOPHILUS/LACTOBAC SPOR 1 EACH CAP PO SCH (10:53)
[2018-08-31] MEDS: metFORMIN HCl 500 MG TABLET PO SCH (10:53)
[2018-08-31] MEDS: FLUTICASONE/SALMETEROL 250-50 INHALER IH SCH ×2 (10:54→20:04)
[2018-08-31] MEDS: MEMANTINE HCL 10 MG TABLET PO SCH (20:05)
[2018-08-31] MEDS: ATORVASTATIN CALCIUM 20 MG TABLET PO SCH (20:05)
[2018-09-01] MEDS: INSULIN REGULAR, HUMAN 100 UNIT/ML 10ML VIAL SQ SCH ×3 (07:02→16:26)
[2018-09-01] MEDS: FLUTICASONE/SALMETEROL 250-50 INHALER IH SCH ×2 (08:10→20:12)
[2018-09-01] MEDS: L. ACIDOPHILUS/LACTOBAC SPOR 1 EACH CAP PO SCH (08:11)
[2018-09-01] MEDS: FUROSEMIDE 40 MG TABLET PO SCH (08:12)
[2018-09-01] MEDS: POTASSIUM CHLORIDE 10 MEQ TABLET.ER PO SCH (08:12)
[2018-09-01] MEDS: metFORMIN HCl 500 MG TABLET PO SCH (08:12)
[2018-09-01] MEDS: APIXABAN 5 MG TABLET PO SCH ×2 (08:12→20:12)
[2018-09-01] MEDS: ASPARTAME PO SCH (11:32)
[2018-09-01] MEDS: PSYLLIUM HUSK PO SCH (11:32)
[2018-09-01] MEDS: ATORVASTATIN CALCIUM 20 MG TABLET PO SCH (20:12)
[2018-09-01] MEDS: MEMANTINE HCL 10 MG TABLET PO SCH (20:12)
[2018-09-02 06:35] LABS: BASOPHILS % 0.5 % (0.0-1.5); NEUTROPHILS # 9.4 # k/uL (1.4-7.7)
[2018-09-02 06:48] LABS: eGFR (Non-African) > 60
[2018-09-02] MEDS: INSULIN REGULAR, HUMAN 100 UNIT/ML 10ML VIAL SQ SCH ×3 (08:48→16:35)
[2018-09-02] MEDS: L. ACIDOPHILUS/LACTOBAC SPOR 1 EACH CAP PO SCH (08:49)
[2018-09-02] MEDS: FUROSEMIDE 40 MG TABLET PO SCH (08:49)
[2018-09-02] MEDS: FLUTICASONE/SALMETEROL 250-50 INHALER IH SCH ×2 (08:49→20:02)
[2018-09-02] MEDS: APIXABAN 5 MG TABLET PO SCH ×2 (08:49→20:01)
[2018-09-02] MEDS: POTASSIUM CHLORIDE 10 MEQ TABLET.ER PO SCH (08:49)
[2018-09-02] MEDS: metFORMIN HCl 500 MG TABLET PO SCH (08:50)
[2018-09-02] MEDS: PSYLLIUM HUSK PO SCH (11:46)
[2018-09-02] MEDS: ASPARTAME PO SCH (11:46)
[2018-09-02] MEDS: ATORVASTATIN CALCIUM 20 MG TABLET PO SCH (20:01)
[2018-09-02] MEDS: MEMANTINE HCL 10 MG TABLET PO SCH (20:01)
[2018-09-03] MEDS: INSULIN REGULAR, HUMAN 100 UNIT/ML 10ML VIAL SQ SCH ×3 (06:56→16:19)
[2018-09-03] MEDS: FLUTICASONE/SALMETEROL 250-50 INHALER IH SCH ×2 (08:00→20:13)
[2018-09-03] MEDS: metFORMIN HCl 500 MG TABLET PO SCH (08:01)
[2018-09-03] MEDS: FUROSEMIDE 40 MG TABLET PO SCH (08:01)
[2018-09-03] MEDS: APIXABAN 5 MG TABLET PO SCH ×2 (08:01→20:13)
[2018-09-03] MEDS: POTASSIUM CHLORIDE 10 MEQ TABLET.ER PO SCH (08:01)
[2018-09-03] MEDS: L. ACIDOPHILUS/LACTOBAC SPOR 1 EACH CAP PO SCH (08:01)
[2018-09-03] MEDS: PSYLLIUM HUSK PO SCH (10:06)
[2018-09-03] MEDS: ASPARTAME PO SCH (10:06)
[2018-09-03] MEDS: ATORVASTATIN CALCIUM 20 MG TABLET PO SCH (20:13)
[2018-09-03] MEDS: MEMANTINE HCL 10 MG TABLET PO SCH (20:13)
[2018-09-04] MEDS: INSULIN REGULAR, HUMAN 100 UNIT/ML 10ML VIAL SQ SCH ×2 (07:48→11:23)
[2018-09-04] MEDS: FLUTICASONE/SALMETEROL 250-50 INHALER IH SCH (08:01)
[2018-09-04] MEDS: metFORMIN HCl 500 MG TABLET PO SCH (08:03)
[2018-09-04] MEDS: FUROSEMIDE 40 MG TABLET PO SCH (08:03)
[2018-09-04] MEDS: APIXABAN 5 MG TABLET PO SCH (08:03)
[2018-09-04] MEDS: POTASSIUM CHLORIDE 10 MEQ TABLET.ER PO SCH (08:03)
[2018-09-04] MEDS: L. ACIDOPHILUS/LACTOBAC SPOR 1 EACH CAP PO SCH (08:03)
[2018-09-04 09:25] VITALS: BP 119/68
--- NOTE | 2018-09-04 10:07 | Discharge Summary ---
Discharge Summary - Discharge [place] Admission Date: 08/26/18 (SNF) Discharge Date: 09/04/18 (Assisted Living - [facility]) Discharge To: Home History of Present Illness: 82-year-old white female who has a past medical history of hypertension chronic diastolic congestive heart failure, hyperlipidemia, chronic atrial fibrillation on anticoagulation therapy, COPD requiring nocturnal oxygen, diabetes mellitus, chronic kidney disease, and colon cancer. Patient presented to the ED and [facility] complaining of a productive cough of some green phlegm with hypoxia. Chest x-ray was consistent with pulmonary edema with a pleural effusion thought to be related to congestive heart.. Patient had an elevated WBC count of 23,400 and a lactate of 1.8. Patient's BNP was elevated at 5627. Patient was felt to have a pneumonia with congestive heart failure was subsequently admitted to the ICU. Patient was placed in antibiotic therapy of azithromycin ceftriaxone and Zosyn. Blood cultures were drawn but results are still pending at this time. Patient was started on IV Lasix therapy. Patient was started on BiPAP. Patient was started on IV steroids and bronchodilators. Patient respiratory status did improve. At the time to discharge was felt that the patient was stable but she was weak and was felt that she needed further rehab services in order to have her safely go back to [facility]. Patient was subsequently admitted to this institution for further rehab services. Condition at Discharge: Stable Home Medications: Ambulatory Orders Medication Instructions Recorded Albuterol Sulfate [Proair 1 puff INH Q4-6 PRN 06/01/17 Respiclick] Diltiazem HCl [Diltiazem 24Hr Cd] 240 mg PO DAILY 06/01/17 Fluticasone Propion/Salmeterol 1 puff INH BID 06/01/17 [Advair 250-50 Diskus] Ipratropium/Albuterol Sulfate 3 ml NEB Q6 PRN ampul.neb 01/01/18 [Duoneb] Acetaminophen [Tylenol] 2 tab PO PRN PRN 06/20/18 Atorvastatin Calcium 1 tab PO HS 06/20/18 Psyllium Husk [Metamucil] 1 cap PO Q4-6 PRN 06/20/18 metFORMIN HCl [Glucophage] 1 tab PO DAILY 06/20/18 predniSONE [Deltasone] 20 mg PO DAILY #5 tablet 06/23/18 Consultations this Visit: None Procedures this Visit: None Allergies/Adverse Reactions: Allergies Allergy/AdvReac Type Severity Reaction Status Date / Time pravastatin Allergy Unknown Verified 06/20/18 13:42
[2018-09-04] MEDS: PSYLLIUM HUSK PO SCH (11:21)
[2018-09-04] MEDS: ASPARTAME PO SCH (11:21)
== END 2018-09-04 13:15 | DRG 92 ==
LOC: SOUTH 14:31
PROVIDERS: ADMIT Family Medicine; ATTEND Family Medicine
DX: R26.89 Other abnormalities of gait and mobility (principal); I50.32 Chronic diastolic (congestive) heart failure; I13.0 Hypertensive heart and chronic kidney disease with heart failure and stage 1 through stage 4 chronic kidney disease, or unspecified chronic kidney disease; I42.9 Cardiomyopathy, unspecified; Z66 Do not resuscitate; I48.2 Chronic atrial fibrillation; G30.1 Alzheimer's disease with late onset; F02.80 Dementia in other diseases classified elsewhere, unspecified severity, without behavioral disturbance, psychotic disturbance, mood disturbance, and anxiety; J44.9 Chronic obstructive pulmonary disease, unspecified; E11.65 Type 2 diabetes mellitus with hyperglycemia; E11.22 Type 2 diabetes mellitus with diabetic chronic kidney disease; N18.9 Chronic kidney disease, unspecified; E78.5 Hyperlipidemia, unspecified; Z99.81 Dependence on supplemental oxygen; Z85.038 Personal history of other malignant neoplasm of large intestine; Z90.49 Acquired absence of other specified parts of digestive tract; Z90.710 Acquired absence of both cervix and uterus; Z87.891 Personal history of nicotine dependence; Z88.8 Allergy status to other drugs, medicaments and biological substances; Z79.84 Long term (current) use of oral hypoglycemic drugs; Z79.899 Other long term (current) drug therapy; Z79.51 Long term (current) use of inhaled steroids
CPT/HCPCS: 80053; 85025; 87493; 94640; 94760; 99221; J1815